=== PATIENT | female | born 1985 | race African-American/Black ===

== ENCOUNTER 2016-11-22 15:11 | Inpatient (IN) | payer MEDICAID ==
[2016-11-22] MEDS ORDERED: Sodium Chloride 0.9% 10 ML Syringe FLUSH PRN (15:40)
--- NOTE | 2016-11-22 15:49 | PCM.LDHP ---
L&D History of Present Illness - General Date of Service: 11/22/16 (preeclampsia) Admit Problem/Dx: Admission Diagnosis/Problem Admission Diagnosis/Problem Source of Information: Patient History Limitations: Reports: No Limitations - History of Present Illness Introduction:: 31 year old 37 5/7 weeks with preclampsia 24 hour urine 442mg Blood pressures 150/90 with labetalol Location, : Reports: Abdomen Quality: Reports: Pressure Severity: Mild Present Illness Comments:: developed hives from the iron infusion, treated with Benadryl. - Related Data Allergies/Adverse Reactions: Allergies Allergy/AdvReac Type Severity Reaction Status Date / Time seasonal Allergy Cannot Uncoded 03/18/16 07:15 Remember Home Medications: Home Meds Cyanocobalamin (Vitamin B-12) [Vitamin B-12] 1,000 mcg SL DAILY #100 tab.subl [Rx] Multivitamin [Kid's Vitamins Complete] 1 each PO BID #100 tab.chew 06/25/15 [Rx] Calcium Citrate/Vitamin D3 [Calcium Citrate + D] 400 - 500 mg PO BID 11/24/15 [ History] LORazepam 0.5 mg PO BID PRN 11/24/15 [History] Omeprazole 40 mg PO BIDMEALS 11/24/15 [History] Pantoprazole [Protonix] 40 mg PO BIDAC 03/17/16 [History] Thiamine [Vitamin B-1] 100 mg PO DAILY 03/17/16 [History] Labetalol HCl [Labetalol] 100 mg PO BID 11/22/16 [History] Past Medical History HEENT History: Reports: Allergic Rhinitis, Impaired Vision Cardiovascular History: Reports: None Respiratory History: Reports: None Gastrointestinal History: Reports: GERD Genitourinary History: Reports: None [employer] History: Reports: Dysfunctional Uterine Bleeding, Spontaneous : 5 Para: 3 LMP (Approximate): (josé miguel 12/14/16 based on early ultrasound) Musculoskeletal History: Reports: Fracture Neurological History: Reports: Concussion, Head Trauma Psychiatric History: Reports: Anxiety, Depression, PTSD Endocrine/Metabolic History: Reports: Diabetes, Gestational Hematologic History: Reports: None Immunologic History: Reports: None Oncologic (Cancer) History: Reports: None Dermatologic History: Reports: None - Infectious Disease History Infectious Disease History: Reports: Chicken Pox - Past Surgical History GI Surgical History: Reports: Bariatric Procedure, Hernia, Abdominal Female Surgical History: Reports: Section, D&C Social & Family History - Family History HEENT: Reports: Hearing Impairment, Impaired Vision, Otitis Media, Sinusitis Cardiac: Reports: Bypass, CAD, [place] Respiratory: Reports: None GI: Reports: None : Reports: None OBGYN: Reports: None Musculoskeletal: Reports: None Neurological: Reports: Alzheimers Disease, Dementia Psychiatric: Reports: Depression Endocrine/Metabolic: Reports: Diabetes, type II Hematologic: Reports: None Immunologic: Reports: None Dermatologic: Reports: None Oncologic: Reports: None - Tobacco Use Smoking Status *Q: Former Smoker Years of Tobacco use: 5 Packs/Tins Daily: 1 Used Tobacco, but Quit: Yes Month Tobacco Last Used: DECEMBER 2014 Second Hand Smoke Exposure: No - Caffeine Use Caffeine Use: Reports: None - Alcohol Use Days Per Week of Alcohol Use: 0 Number of Drinks Per Day: 5 Total Drinks Per Week: 0 - Recreational Drug Use Recreational Drug Use: No H&P Review of Systems - Review of Systems: Review Of Systems: See Below General: Reports: Decreased Appetite HEENT: Reports: No Symptoms Pulmonary: Reports: Shortness of Breath Cardiovascular: Reports: Blood Pressure Problem Gastrointestinal: Reports: Abdominal Pain Genitourinary: Reports: No Symptoms Musculoskeletal: Reports: No Symptoms Skin: Reports: No Symptoms Psychiatric: Reports: No Symptoms Neurological: Reports: Headache, Numbness, Tingling (feet and lower legs) Hematologic/Lymphatic: Reports: No Symptoms Immunologic: Reports: Other (iron, hives as of today) L&D Exam - Exam Exam: See Below - Vital Signs Weight: 167 lb 7 oz - OB Specific Contraction Frequency (min): irregular Contraction Intensity: Mild Movement: Active Heart Tones: Present Heart Tones per Min: 128 Heart Rate (FHR) Variability: Moderate (6-25 bmp) Presentation: Vertex Estimated Weight: 6-7 pounds - Dinero Score Dinero Score Cervix Position: Anterior Dinero Score Consistency: Soft Dinero Score Effacement: 31-50% Dinero Score Dilation: Closed Dinero Score 's Station: -2 Dinero Score Total: 6 - Exam General: Alert, Oriented, Mild Distress HEENT: PERRLA, Mucosa Moist & [place], Pupils Equal Neck: Supple Lungs: Clear to Auscultation, Normal Respiratory Effort Cardiovascular: Regular Rate, Regular Rhythm GI/Abdominal Exam: Soft, Tender Genitourinary: Normal external exam, Enlarged uterus Back Exam: Normal Inspection, Full Range of Motion Extremities: Normal Inspection, Normal Capillary Refill Skin: Warm, Dry, Intact Neurological: Cranial Nerves Intact, Reflexes Equal Bilateral Psychiatric: Alert, Normal Affect, Normal Mood - Patient Data Lab Results Last 24 hrs: HGB 9.6, PLT 225 Normal kidney and liver function. 24 hour ua 442 - Problem List (1) SNOMED Code(s): 89246288 ICD Code: Z34.90 - ENCNTR FOR SUPRVSN OF NORMAL , UNSP, UNSP TRIMESTER Status: Acute Current Visit: Yes Qualifiers: Weeks of gestation: 36 weeks Qualified Code(s): Z3A.36 - 36 weeks gestation of (2) Pre-eclampsia SNOMED Code(s): 850520717 ICD Code: O14.90 - UNSPECIFIED PRE-ECLAMPSIA, UNSPECIFIED TRIMESTER Status : Acute Current Visit: Yes (3) Hypertension affecting SNOMED Code(s): 456712256 ICD Code: O16.9 - UNSPECIFIED MATERNAL HYPERTENSION, UNSPECIFIED TRIMESTER Status: Acute Current Visit: Yes Problem List Initiated/Reviewed/Updated: Yes Orders Last 24hrs: Active Orders 24 hr Category Date Time Status OB Check [OM.PC] Click to Edit Care 11/22/16 14:40 Ordered Assessment/Plan Comment:: 36 5/7 weeks preeclampsia iron infusion reaction, treated GDM well controll Anemia, post gastric by pass, iron infusion today
[2016-11-22] MEDS: diphenhydrAMINE 50 MG/ML SDV IVPUSH ONE ×2 (15:54→16:09)
[2016-11-22] MEDS: Magnesium Sulfate/Water 100 ML ONE ×2 (15:55→16:08)
[2016-11-22] MEDS ORDERED: Lactated Ringers 2,000 ML ONE (15:55)
[2016-11-22] MEDS ORDERED: ePHEDrine 50 MG/ML SDV ONE (15:55)
[2016-11-22] MEDS ORDERED: Oxytocin 10 Units/1 ML SDV ONE (15:55)
[2016-11-22] MEDS ORDERED: Sodium Chloride 0.9% 1,000 ML IV ONE (16:08)
[2016-11-22] MEDS ORDERED: Docusate Sodium 100 MG Cap PO PRN (16:25)
[2016-11-22] MEDS ORDERED: Acetaminophen 325 MG Tab PO PRN (16:25)
[2016-11-22] MEDS ORDERED: Bisacodyl 5 MG Tab PO PRN (16:25)
[2016-11-22] MEDS ORDERED: Phenylephrine 1% 10 MG/ML SDV ONE (16:32)
[2016-11-22] MEDS ORDERED: ceFAZolin 1 GM Vial ONE (16:43)
[2016-11-22] MEDS ORDERED: Ondansetron 4 MG/2 ML SDV ONE (16:48)
[2016-11-22] MEDS ORDERED: Dexamethasone 4 MG/ML SDV ONE (17:02)
[2016-11-22] MEDS ORDERED: Morphine 4 MG/ML Syringe ONE (17:48)
[2016-11-22] MEDS ORDERED: Magnesium Sulfate/Water 100 ML ONE (18:39)
[2016-11-22] MEDS: Morphine 2 MG/ML Syringe IVPUSH PRN ×3 (18:46→23:39)
[2016-11-22] MEDS: Acetaminophen/HYDROcodone 325-10 MG Tab PO PRN ×2 (18:49→22:55)
[2016-11-22] MEDS ORDERED: Magnesium Sulfate/Water 4 GM in Premix Bag 2 BAG IV ONE (19:00)
[2016-11-22] MEDS ORDERED: Magnesium Sulfate/Water 40 GM/1,000 ML BAG IV SCH (19:15)
--- NOTE | 2016-11-22 23:40 | CONS ---
DATE OF SERVICE: 11/22/2016 REFERRING PHYSICIAN: CONSULTING PHYSICIAN: Lawrence Porter MD REASON FOR CONSULTATION: Evaluation of . HISTORY OF PRESENT ILLNESS: A pleasant 31-year-old female, who has had an uncomplicated at about 36 months. Unfortunately, the patient has developed a HELLP syndrome/preeclampsia. The concern here is worsening state. PAST SURGICAL HISTORY: Duodenal switch. PAST MEDICAL HISTORY: 1. Morbid obesity. 2. Gastroesophageal reflux disease. 3. History of head trauma. 4. PTSD. 5. Anxiety. 6. Depression. 7. Gestational diabetes. FAMILY HISTORY: Noncontributory. SOCIAL HISTORY: She is a former smoker. REVIEW OF SYSTEMS: GENERAL: No significant concerns. HEENT: No symptoms. PULMONARY: Mild shortness of breath that is appropriate for . CARDIOVASCULAR: Hypertension as described above. GASTROINTESTINAL: No changes. GENITOURINARY: No changes. MUSCULOSKELETAL: No symptoms. SKIN: No changes except for some itching of the abdomen. NEUROLOGICAL: No significant changes. PHYSICAL EXAMINATION: VITAL SIGNS: Stable. Blood pressure unavailable at this time. HEENT: Pupils are equal. NECK: Supple. LUNGS: Clear. CARDIOVASCULAR: Regular rate. ABDOMEN: Bowel sounds positive. Appropriate for state. EXTREMITIES: Full range of motion. NEUROLOGICAL: Oriented x3. PSYCH: No gross depression. LABORATORY DATA: Results show white blood count cell count of 9.6 with platelets of 255,000. IMAGING DATA: Ultrasound, which I did review on 11/16/2016 shows a 35-week and 4-day . ASSESSMENT AND PLAN: The patient will be taken emergently to the operating room for section. We discussed risks, benefits, alternatives, limitations including, but not limited to infection, bleeding, injury to bowel, bladder, baby, intestine, wound failure, chronic pain, infertility, and other risks not listed here. The patient understands these risks and wishes to proceed. Lawrence Porter MD /[id number]
[2016-11-23] MEDS: Acetaminophen/HYDROcodone 325-10 MG Tab PO PRN (02:47)
[2016-11-23] MEDS: Ibuprofen 600 MG Tab PO PRN ×4 (03:49→22:29)
[2016-11-23] MEDS: Morphine 2 MG/ML Syringe IVPUSH PRN ×2 (03:49→07:58)
[2016-11-23] MEDS: Acetaminophen/oxyCODONE 325-10 MG Tab PO PRN ×4 (08:29→20:24)
[2016-11-23] MEDS ORDERED: Lanolin 100% Cream 40 GM Tube TOP PRN (08:37)
--- NOTE | 2016-11-23 09:41 | OR ---
DATE OF PROCEDURE: 11/22/2016 PROCEDURE: section with aftercare. PREOPERATIVE DIAGNOSIS: Preeclampsia requiring emergent . POSTOPERATIVE DIAGNOSIS: Preeclampsia requiring emergent . PET ADOPTION COUNSELOR: Jennifer Dunham CNM RISKS: Risks, benefits, alternatives, and limitations, including, but not limited to infection, bleeding, and injury to baby, bladder, intestines, and other risks were explained to the patient and wished to proceed. PROCEDURE IN DETAIL: The patient was placed in supine position. The abdomen was prepped and draped. The patient had a previous midline vertical incision, which was used for the today. This was carried down with a 15 blade and then subsequently followed by an electrocautery. A Cheryl clamp was used to elevate the abdominal wall, thus dissecting the small bowel and uterus away from this. The abdomen was then entered and showed no abnormalities. This was enlarged superiorly and inferiorly using electrocautery. The bladder was then deflected from the uterus itself. The uterus was then opened bluntly using a mosquito. A bandage scissors was then used to open the uterus further. The baby was delivered without difficulty. At no point was the baby's arms, legs, or shoulders pulled on, rather antegrade pressure was used to deliver the baby. The cord was then clamped and subsequently cut. The uterus was delivered from the abdomen and the placenta was delivered without abnormality. The uterus was then closed 0-with Vicryl sutures in a running locked fashion x2. The bladder was reapproximated. The fascia was then reapproximated using 0-Vicryl sutures x2. All layers were thoroughly irrigated. The subcutaneous tissues were reapproximated. Skin was closed with 4-0 Vicryl. Dermabond was applied. The patient tolerated the procedure well. Lawrence Porter MD /[id number]
--- NOTE | 2016-11-23 12:02 | PN ---
DATE OF SERVICE: 11/23/2016 SUBJECTIVE: The patient is doing well except still having some pain control issues today. OBJECTIVE: VITAL SIGNS: Stable. CARDIOVASCULAR: Regular rhythm and rate. RESPIRATORY: Lungs clear to consultation bilaterally. ABDOMEN: Bowel sounds positive. PLAN: We will change her pain medication to Percocet. Her hemoglobin is stable. Her magnesium is elevated which is considering her current administration of magnesium due to preeclampsia issues. Jennifer Dunham will continue to manage the preeclampsia and surgical services will continue to assist her in any way possible. As far as the surgical aspect, the patient is doing well. She is okay to shower. We will remove her Rader catheter today. We will work on more diet and activity. Lawrence Porter MD /[id number]
[2016-11-23] MEDS: Labetalol 100 MG Tab PO SCH ×2 (13:27→20:47)
[2016-11-24] MEDS: Acetaminophen/oxyCODONE 325-10 MG Tab PO PRN ×6 (00:21→21:29)
[2016-11-24] MEDS: Ibuprofen 600 MG Tab PO PRN (07:30)
[2016-11-24] MEDS: Labetalol 100 MG Tab PO SCH ×2 (08:46→20:41)
[2016-11-24] MEDS ORDERED: Bisacodyl 10 MG Supp RECTAL PRN (10:53)
[2016-11-24] MEDS ORDERED: Magnesium Hydroxide 400 MG/5 ML Susp 30 ML Cup PO PRN (10:53)
--- NOTE | 2016-11-24 14:49 | PN ---
DATE OF SERVICE: 11/24/2016 SUBJECTIVE: The patient is doing well today. She has not had a bowel movement yet, but is passing gas. OBJECTIVE: VITAL SIGNS: Stable. CARDIOVASCULAR: Regular rhythm and rate. RESPIRATORY: Lungs clear to consultation bilaterally. ABDOMEN: Bowel sounds positive. Incision is healing well. ASSESSMENT: Status post . PLAN: We will work on showering today, activity, and work on bowel stimulation. Anticipate discharge tomorrow. Lawrence Porter MD /[id number]
[2016-11-24] MEDS ORDERED: Calcium Carbonate 500 MG Tab.Chew PO PRN (17:20)
[2016-11-25] MEDS: Acetaminophen/oxyCODONE 325-10 MG Tab PO PRN ×6 (01:42→22:25)
[2016-11-25] MEDS: Labetalol 100 MG Tab PO SCH ×3 (09:28→21:21)
[2016-11-25] MEDS: Ibuprofen 600 MG Tab PO PRN (09:30)
--- NOTE | 2016-11-25 10:36 | PN ---
DATE OF SERVICE: 11/25/2016 SUBJECTIVE: The patient is doing very well today. Pain is controlled with Percocet. No nausea, vomiting or shortness of breath. OBJECTIVE: VITAL SIGNS: Stable. CARDIOVASCULAR: Regular rhythm and rate. RESPIRATORY: Lungs clear to consultation bilaterally. SKIN: Incision healing well. No signs of cellulitis or infection. Dermabond is intact. ASSESSMENT: Status post section. PLAN: The patient will be discharged today. We discussed diet, activity, followup, signs and symptoms, complications, and the role of the emergency room. Please see discharge MAR for further details. Lawrence Porter MD /[id number]
--- NOTE | 2016-11-25 10:39 | DISCH ---
DISCHARGE DIAGNOSIS: Status post section. HOSPITAL COURSE: This is a pleasant 31-year-old female who underwent an uneventful section. The patient did well postoperatively. Her pain continued to improve. The patient at discharge today had no fevers, chills, nausea, or vomiting. Complications during this hospitalization were none. DISCHARGE MEDICATIONS: Please see MAR, but include Percocet for pain. FOLLOWUP: With Surgery in 7 to 14 days.
--- NOTE | 2016-11-25 17:43 | PCM.PNPP ---
- General Info Date of Service: 11/25/16 Functional Status: Reports: Pain Controlled - Review of Systems General: Reports: No Symptoms HEENT: Reports: Headaches Pulmonary: Reports: No Symptoms Cardiovascular: Reports: No Symptoms Gastrointestinal: Reports: No Symptoms Genitourinary: Reports: No Symptoms Musculoskeletal: Reports: No Symptoms Skin: Reports: No Symptoms Neurological: Reports: No Symptoms Psychiatric: Reports: No Symptoms - General Info Date of Service: 11/25/16 - Patient Data Vital Signs - most recent: Last Vital Signs Temp 36.7 C 11/25/16 15:11 Pulse 72 11/25/16 15:11 Resp 16 11/25/16 15:11 BP 150/90 H 11/25/16 15:55 Pulse Ox 97 11/25/16 15:11 Weight - most recent: 78.471 kg I&O - last 24 hours: Intake & Output 11/25/16 11/25/16 11/25/16 06:59 14:59 22:59 Intake Total 909 166 6095 Balance 437 842 2957 Lab Results - last 24 hrs: Laboratory Results - last 24 hr 11/25/16 11/25/16 Range/Units 15:12 15:12 WBC 9.8 (4.5-11.0) K/uL RBC 3.51 (3.30-5.50) M/uL Hgb 8.7 L D (12.0-15.0) g/dL Hct 28.5 L (36.0-48.0) % MCV 81 (80-98) fL MCH 25 L (27-31) pg MCHC 31 L (32-36) % Plt Count 244 (150-400) K/uL Sodium 139 L (140-148) mmol/L Potassium 4.2 (3.6-5.2) mmol/L Chloride 105 (100-108) mmol/L Carbon Dioxide 28 (21-32) mmol/L Anion Gap 10.2 (5.0-14.0) mmol/L BUN 15 D (7-18) mg/dL Creatinine 0.8 (0.6-1.0) mg/dL Est Cr Clr Drug Dosing 101.30 mL/min Estimated GFR (MDRD) > 60 (>60) Glucose 77 (74-106) mg/dL Calcium 8.2 L (8.5-10.1) mg/dL Total Bilirubin 0.3 (0.2-1.0) mg/dL AST 26 (15-37) U/L ALT 29 (12-78) U/L Alkaline Phosphatase 142 H (46-116) U/L Total Protein 6.6 (6.4-8.2) g/dL Albumin 2.2 L (3.4-5.0) g/dL Globulin 4.4 H (2.3-3.5) g/dL Albumin/Globulin Ratio 0.5 L (1.2-2.2) Med Orders - Current: Current Medications Acetaminophen (Tylenol) 650 mg PO Q6H PRN PRN Reason: Pain (mild 1-3) Bisacodyl (Dulcolax) 5 mg PO DAILY PRN PRN Reason: Constipation Last Admin: 11/24/16 04:21 Dose: 5 mg Bisacodyl (Dulcolax) 10 mg RECTAL DAILY PRN PRN Reason: Constipation Last Admin: 11/24/16 12:56 Dose: 10 mg Calcium Carbonate/Glycine (Tums) 1,000 mg PO Q2H PRN PRN Reason: Indigestion Last Admin: 11/24/16 17:26 Dose: 1,000 mg Docusate Sodium (Colace) 100 mg PO BID PRN PRN Reason: Constipation Last Admin: 11/23/16 18:13 Dose: 100 mg Emollient Ointment (Lansinoh Hpa) 0 gm TOP ASDIRECTED PRN PRN Reason: sore nipples Last Admin: 11/23/16 08:47 Dose: 1 applic Magnesium Sulfate (Magnesium Sulfate 40 Gm In Water 1000 Ml) 40 gm in 1,000 mls @ 25 mls/hr IV ASDIRECTED SUMMER PRN Reason: Protocol Last Admin: 11/22/16 19:26 Dose: 25 ml/hr, 25 mls/hr Labetalol HCl (Normodyne) 100 mg PO TID SUMMER Last Admin: 11/25/16 15:09 Dose: 100 mg Magnesium Hydroxide (Milk Of Magnesia) 30 ml PO BID PRN PRN Reason: Constipation Last Admin: 11/24/16 11:13 Dose: 30 ml Morphine Sulfate (Morphine) 1 - 4 mg IVPUSH Q1H PRN PRN Reason: Pain Last Admin: 11/23/16 07:58 Dose: 4 mg Oxycodone/Acetaminophen (Percocet 325-10 Mg) 1 - 2 tab PO Q4H PRN PRN Reason: Pain Last Admin: 11/25/16 13:53 Dose: 2 tab Senna/Docusate Sodium (Senna Plus) 1 tab PO BID PRN PRN Reason: Constipation Last Admin: 11/24/16 08:47 Dose: 1 tab Sodium Chloride (Saline Flush) 10 ml FLUSH ASDIRECTED PRN PRN Reason: Keep Vein Open Discontinued Medications Hydrocodone Bitart/Acetaminophen ([place] 325-10 Mg) 1 - 2 tab PO Q4H PRN PRN Reason: Pain Last Admin: 11/23/16 02:47 Dose: 2 tab Cefazolin Sodium (Ancef) Confirm Administered Dose 2 gm .ROUTE .STK-MED ONE Stop: 11/22/16 16:44 Dexamethasone (Dexamethasone) Confirm Administered Dose 4 mg .ROUTE .STK-MED ONE Stop: 11/22/16 17:03 Diphenhydramine HCl (Benadryl) 25 mg IVPUSH ONETIME ONE Stop: 11/22/16 16:01 Last Admin: 11/22/16 16:09 Dose: Not Given Ephedrine Sulfate (Ephedrine Sulfate) Confirm Administered Dose 50 mg .ROUTE .STK-MED ONE Stop: 11/22/16 15:56 Magnesium Sulfate (Magnesium Sulfate 2 Gm In Water 50 Ml) Confirm Administered Dose 100 mls @ as directed .ROUTE .STK-MED ONE Stop: 11/22/16 15:49 Last Admin: 11/22/16 16:08 Dose: 2 gm Lactated Ringer's (Ringers, Lactated) Confirm Administered Dose 2,000 mls @ as directed .ROUTE .STK-MED ONE Stop: 11/22/16 15:56 Sodium Chloride (Normal Saline) 1,000 mls @ 999 mls/hr IV .BOLUS ONE Stop: 11/22/16 17:08 Last Admin: 11/22/16 15:50 Dose: 999 mls/hr Magnesium Sulfate (Magnesium Sulfate 2 Gm In Water 50 Ml) Confirm Administered Dose 100 mls @ as directed .ROUTE .STK-MED ONE Stop: 11/22/16 18:40 Last Admin: 11/22/16 18:50 Dose: 4 gm Magnesium Sulfate 4 gm/ Premix 100 mls @ 400 mls/hr IV ONETIME ONE Stop: 11/22/16 19:14 Last Admin: 11/22/16 19:41 Dose: Not Given Ibuprofen (Motrin) 600 mg PO Q6H PRN PRN Reason: Pain Last Admin: 11/25/16 09:30 Dose: 600 mg Labetalol HCl (Normodyne) 100 mg PO BID SUMMER Last Admin: 11/25/16 09:28 Dose: 100 mg Morphine Sulfate (Morphine) Confirm Administered Dose 4 mg .ROUTE .STK-MED ONE Stop: 11/22/16 17:49 Last Admin: 11/22/16 18:02 Dose: 4 mg Ondansetron HCl (Zofran) Confirm Administered Dose 4 mg .ROUTE .STK-MED ONE Stop: 11/22/16 16:49 Oxytocin (Pitocin) Confirm Administered Dose 10 unit .ROUTE .STK-MED ONE Stop: 11/22/16 15:56 Last Admin: 11/22/16 17:05 Dose: 10 unit Phenylephrine HCl (Carlo-Synephrine) Confirm Administered Dose 10 mg .ROUTE .STK- MED ONE Stop: 11/22/16 16:33 - Interaction Infant Disposition, : at Bedside Infant Interaction: Holding Infant Support Person: - Recovery Exam Fundal Tone: Firm Fundal Level: 1 Fingerbreadths Above Umbilicus Fundal Placement: Midline Lochia Amount: Small Lochia Color: Rubra/Red Perineum Description: Intact, Minimal Bruising/Swelling Episiotomy/Laceration: None Bladder Status: Voiding Urinary Elimination: Voided - Exam General: alert, oriented HEENT: Pupils equal Neck: supple Lungs: Clear to Auscultation, Normal Respiratory Effort Cardiovascular: Regular Rate, Regular Rhythm GI/Abdominal Exam: Normal Bowel Sounds, Soft, Non-Tender, No Organomegaly, No Distention, No Abnormal Bruit, No Mass, Pelvis Stable Extremities: Normal Inspection, Normal Range of Motion, Non-Tender, No Pedal Edema, Normal Capillary Refill Skin: warm, dry, intact Neurological: no new focal deficit Psy/Mental Status: alert, normal affect, normal mood - Problem List & Annotations (1) Pre-eclampsia SNOMED Code(s): 768077672 Code(s): O14.90 - UNSPECIFIED PRE-ECLAMPSIA, UNSPECIFIED TRIMESTER Status: Acute Current Visit: Yes - Problem List Review Problem List Initiated/Reviewed/Updated: Yes - My Orders Last 24 Hours: My Active Orders 11/24/16 17:20 Calcium Carbonate [Tums] 1,000 mg PO Q2H PRN 11/25/16 15:00 Labetalol [Normodyne] 100 mg PO TID - Assessment Assessment:: 11/25/2016 preeclampsia Post Repeat - Plan Plan:: 36 5/7 weeks preeclampsia iron infusion reaction, treated GDM well controll Anemia, post gastric by pass, iron infusion today 11/25/2016 Will initiate labetalol 1oomg TID today then to 200mg BID tomorrow Continue to monitor BP and VS regular IF >160 diastolic or >90 systolic after rechecks and interventions call me Plan discharge tomorrow
[2016-11-25] MEDS ORDERED: Cyclobenzaprine 10 MG Tab PO PRN (20:40)
[2016-11-25] MEDS ORDERED: hydrOXYzine HCl 100 MG/2 ML SDV IM PRN (20:40)
[2016-11-26] MEDS: Acetaminophen/oxyCODONE 325-10 MG Tab PO PRN ×3 (03:30→11:59)
--- NOTE | 2016-11-26 08:28 | PCM.PNPP ---
- General Info Date of Service: 11/26/16 Admission Dx/Problem (Free Text): Admission Diagnosis/Problem Admission Diagnosis/Problem Functional Status: Reports: Pain Controlled - Review of Systems General: Reports: No Symptoms HEENT: Reports: No Symptoms Pulmonary: Reports: No Symptoms Cardiovascular: Reports: No Symptoms Gastrointestinal: Reports: No Symptoms Genitourinary: Reports: No Symptoms Musculoskeletal: Reports: No Symptoms Skin: Reports: No Symptoms Neurological: Reports: No Symptoms Psychiatric: Reports: No Symptoms - General Info Date of Service: 11/26/16 - Patient Data Vital Signs - most recent: Last Vital Signs Temp 37.3 C 11/26/16 07:47 Pulse 85 11/26/16 07:47 Resp 16 11/26/16 07:47 BP 148/90 H 11/26/16 07:51 Pulse Ox 98 11/26/16 07:47 Weight - most recent: 78.471 kg I&O - last 24 hours: Intake & Output 11/25/16 11/26/16 11/26/16 22:59 06:59 14:59 Intake Total 1999 1999 Balance 1999 1999 Lab Results - last 24 hrs: Laboratory Results - last 24 hr 11/25/16 11/25/16 Range/Units 15:12 15:12 WBC 9.8 (4.5-11.0) K/uL RBC 3.51 (3.30-5.50) M/uL Hgb 8.7 L D (12.0-15.0) g/dL Hct 28.5 L (36.0-48.0) % MCV 81 (80-98) fL MCH 25 L (27-31) pg MCHC 31 L (32-36) % Plt Count 244 (150-400) K/uL Sodium 139 L (140-148) mmol/L Potassium 4.2 (3.6-5.2) mmol/L Chloride 105 (100-108) mmol/L Carbon Dioxide 28 (21-32) mmol/L Anion Gap 10.2 (5.0-14.0) mmol/L BUN 15 D (7-18) mg/dL Creatinine 0.8 (0.6-1.0) mg/dL Est Cr Clr Drug Dosing 101.30 mL/min Estimated GFR (MDRD) > 60 (>60) Glucose 77 (74-106) mg/dL Calcium 8.2 L (8.5-10.1) mg/dL Total Bilirubin 0.3 (0.2-1.0) mg/dL AST 26 (15-37) U/L ALT 29 (12-78) U/L Alkaline Phosphatase 142 H (46-116) U/L Total Protein 6.6 (6.4-8.2) g/dL Albumin 2.2 L (3.4-5.0) g/dL Globulin 4.4 H (2.3-3.5) g/dL Albumin/Globulin Ratio 0.5 L (1.2-2.2) Micro Results - last 24 hours: Microbiology 11/25/16 21:24 Clostridium difficile (PCR) - Final Stool / Feces NEGATIVE CDIFF TOXIN Med Orders - Current: Current Medications Acetaminophen (Tylenol) 650 mg PO Q6H PRN PRN Reason: Pain (mild 1-3) Bisacodyl (Dulcolax) 5 mg PO DAILY PRN PRN Reason: Constipation Last Admin: 11/24/16 04:21 Dose: 5 mg Bisacodyl (Dulcolax) 10 mg RECTAL DAILY PRN PRN Reason: Constipation Last Admin: 11/24/16 12:56 Dose: 10 mg Calcium Carbonate/Glycine (Tums) 1,000 mg PO Q2H PRN PRN Reason: Indigestion Last Admin: 11/24/16 17:26 Dose: 1,000 mg Cyclobenzaprine HCl (Flexeril) 10 mg PO TID PRN PRN Reason: Pain Last Admin: 11/25/16 21:00 Dose: 10 mg Docusate Sodium (Colace) 100 mg PO BID PRN PRN Reason: Constipation Last Admin: 11/23/16 18:13 Dose: 100 mg Emollient Ointment (Lansinoh Hpa) 0 gm TOP ASDIRECTED PRN PRN Reason: sore nipples Last Admin: 11/23/16 08:47 Dose: 1 applic Hydroxyzine HCl (Vistaril) 50 - 100 mg IM Q4H PRN PRN Reason: Nausea Magnesium Sulfate (Magnesium Sulfate 40 Gm In Water 1000 Ml) 40 gm in 1,000 mls @ 25 mls/hr IV ASDIRECTED SUMMER PRN Reason: Protocol Last Admin: 11/22/16 19:26 Dose: 25 ml/hr, 25 mls/hr Labetalol HCl (Normodyne) 200 mg PO BID SUMMER Magnesium Hydroxide (Milk Of Magnesia) 30 ml PO BID PRN PRN Reason: Constipation Last Admin: 11/24/16 11:13 Dose: 30 ml Morphine Sulfate (Morphine) 1 - 4 mg IVPUSH Q1H PRN PRN Reason: Pain Last Admin: 11/23/16 07:58 Dose: 4 mg Oxycodone/Acetaminophen (Percocet 325-10 Mg) 1 - 2 tab PO Q4H PRN PRN Reason: Pain Last Admin: 11/26/16 07:45 Dose: 2 tab Senna/Docusate Sodium (Senna Plus) 1 tab PO BID PRN PRN Reason: Constipation Last Admin: 11/24/16 08:47 Dose: 1 tab Sodium Chloride (Saline Flush) 10 ml FLUSH ASDIRECTED PRN PRN Reason: Keep Vein Open Discontinued Medications Hydrocodone Bitart/Acetaminophen ([place] 325-10 Mg) 1 - 2 tab PO Q4H PRN PRN Reason: Pain Last Admin: 11/23/16 02:47 Dose: 2 tab Cefazolin Sodium (Ancef) Confirm Administered Dose 2 gm .ROUTE .STK-MED ONE Stop: 11/22/16 16:44 Dexamethasone (Dexamethasone) Confirm Administered Dose 4 mg .ROUTE .STK-MED ONE Stop: 11/22/16 17:03 Diphenhydramine HCl (Benadryl) 25 mg IVPUSH ONETIME ONE Stop: 11/22/16 16:01 Last Admin: 11/22/16 16:09 Dose: Not Given Ephedrine Sulfate (Ephedrine Sulfate) Confirm Administered Dose 50 mg .ROUTE .STK-MED ONE Stop: 11/22/16 15:56 Magnesium Sulfate (Magnesium Sulfate 2 Gm In Water 50 Ml) Confirm Administered Dose 100 mls @ as directed .ROUTE .STK-MED ONE Stop: 11/22/16 15:49 Last Admin: 11/22/16 16:08 Dose: 2 gm Lactated Ringer's (Ringers, Lactated) Confirm Administered Dose 2,000 mls @ as directed .ROUTE .STK-MED ONE Stop: 11/22/16 15:56 Sodium Chloride (Normal Saline) 1,000 mls @ 999 mls/hr IV .BOLUS ONE Stop: 11/22/16 17:08 Last Admin: 11/22/16 15:50 Dose: 999 mls/hr Magnesium Sulfate (Magnesium Sulfate 2 Gm In Water 50 Ml) Confirm Administered Dose 100 mls @ as directed .ROUTE .STK-MED ONE Stop: 11/22/16 18:40 Last Admin: 11/22/16 18:50 Dose: 4 gm Magnesium Sulfate 4 gm/ Premix 100 mls @ 400 mls/hr IV ONETIME ONE Stop: 11/22/16 19:14 Last Admin: 11/22/16 19:41 Dose: Not Given Ibuprofen (Motrin) 600 mg PO Q6H PRN PRN Reason: Pain Last Admin: 11/25/16 09:30 Dose: 600 mg Labetalol HCl (Normodyne) 100 mg PO BID SUMMER Last Admin: 11/25/16 09:28 Dose: 100 mg Labetalol HCl (Normodyne) 100 mg PO TID SUMMER Last Admin: 11/25/16 21:21 Dose: 100 mg Morphine Sulfate (Morphine) Confirm Administered Dose 4 mg .ROUTE .STK-MED ONE Stop: 11/22/16 17:49 Last Admin: 11/22/16 18:02 Dose: 4 mg Ondansetron HCl (Zofran) Confirm Administered Dose 4 mg .ROUTE .STK-MED ONE Stop: 11/22/16 16:49 Oxytocin (Pitocin) Confirm Administered Dose 10 unit .ROUTE .STK-MED ONE Stop: 11/22/16 15:56 Last Admin: 11/22/16 17:05 Dose: 10 unit Phenylephrine HCl (Carlo-Synephrine) Confirm Administered Dose 10 mg .ROUTE .STK- MED ONE Stop: 11/22/16 16:33 - Interaction Infant Disposition, : at Bedside Interaction: Holding Support Person: - Recovery Exam Fundal Tone: Firm Fundal Level: At Umbilicus Fundal Placement: Midline Lochia Amount: Small Lochia Color: Rubra/Red Perineum Description: Intact, Minimal Bruising/Swelling Episiotomy/Laceration: None Bladder Status: Voiding Urinary Elimination: Voided - Problem List & Annotations (1) Pre-eclampsia SNOMED Code(s): 191071569 Code(s): O14.90 - UNSPECIFIED PRE-ECLAMPSIA, UNSPECIFIED TRIMESTER Status: Acute Current Visit: Yes - Problem List Review Problem List Initiated/Reviewed/Updated: Yes - My Orders Last 24 Hours: My Active Orders 11/26/16 09:00 Labetalol [Normodyne] 200 mg PO BID - Assessment Assessment:: 11/25/2016 preeclampsia Post Repeat 11/26/2016 BPs better on the new labetalol dosage Will increase to Labetalol 200mg BID today Will have her see Jennifer Monday for a BP check and then weekly for awhile Went over warning signs and when to come to ER Went over to not have baby sleeping in bed with her if taking pain medication and muscle relaxer since she gets so drowsy - Plan Plan:: 36 5/7 weeks preeclampsia iron infusion reaction, treated GDM well controll Anemia, post gastric by pass, iron infusion today 11/25/2016 Will initiate labetalol 1oomg TID today then to 200mg BID tomorrow Continue to monitor BP and VS regular IF >160 diastolic or >90 systolic after rechecks and interventions call me Plan discharge tomorrow 11/26/2016 Discharge today on new labetalol dosing See Jennifer Monday for BP visit
[2016-11-26] MEDS ORDERED: Labetalol 100 MG Tab PO SCH (09:00)
[2016-11-26 11:12] VITALS: BP 140/78
== END 2016-11-26 12:30 | disposition home or self-care (01) | DRG 765 ==
LOC: JP.OBCHECK 15:11 → JP.OB 15:16 → OBSVTOIN 16:44 → JP.MS 18:13
PROVIDERS: ADMIT Nurse Practitioner Family; ATTEND Surgery
PROC: 10D00Z1 Extraction of Products of Conception, Low, Open Approach (ICD-10-PCS; principal; 2016-11-22)
DX: O14.23 HELLP syndrome (HELLP), third trimester (principal); K91.2 Postsurgical malabsorption, not elsewhere classified; Z3A.37 37 weeks gestation of pregnancy; Z37.0 Single live birth; O99.343 Other mental disorders complicating pregnancy, third trimester; F32.9 Major depressive disorder, single episode, unspecified; F43.10 Post-traumatic stress disorder, unspecified; H54.7 Unspecified visual loss; Z87.891 Personal history of nicotine dependence; Z98.84 Bariatric surgery status; D64.9 Anemia, unspecified; O34.211 Maternal care for low transverse scar from previous cesarean delivery; N85.8 Other specified noninflammatory disorders of uterus; T80.89XA Other complications following infusion, transfusion and therapeutic injection, initial encounter; O24.419 Gestational diabetes mellitus in pregnancy, unspecified control; F41.9 Anxiety disorder, unspecified; O13.9 Gestational [pregnancy-induced] hypertension without significant proteinuria, unspecified trimester; O99.019 Anemia complicating pregnancy, unspecified trimester; D50.8 Other iron deficiency anemias; O99.89 Other specified diseases and conditions complicating pregnancy, childbirth and the puerperium
CPT/HCPCS: 36415; 80048; 80053; 81001; 81003; 82565; 83615; 83735; 84450; 84460; 84520; 84550; 85025; 85027; 85730; 86850; 86900; 86901; 87493; 88307; 96365; 96366; 99211; A9270-GY; J0690; J1100; J1200; J1756; J2270; J2370; J2405; J2590; J3475; J7040; J7050; J7120

== ENCOUNTER 2016-12-31 03:40 | Emergency (ER) | payer MEDICAID ==
[2016-12-31 04:09] VITALS: BP 145/86
[2016-12-31] MEDS ORDERED: Acetaminophen/oxyCODONE 325-7.5 MG Tab PO PRN (04:41)
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
--- NOTE | 2017-01-02 09:20 | CR ---
Pelvis 1V or 2V INDICATION: blunt trauma FINDINGS: No acute fracture. Pelvis otherwise negative.
--- NOTE | 2017-01-02 10:15 | CR ---
Lumbar Spine 2 or 3V INDICATION: blunt trauma FINDINGS: 5 lumbar type vertebral bodies. Vertebral body and disc space height is relatively well-travis ntained. Lumbar facet joints within normal limits. No evidence for acute fracture.
== END 2016-12-31 05:49 | disposition home or self-care (01) ==
LOC: JP.ED 03:40
DX: S30.0XXA Contusion of lower back and pelvis, initial encounter (principal); F17.210 Nicotine dependence, cigarettes, uncomplicated; I10 Essential (primary) hypertension; K21.9 Gastro-esophageal reflux disease without esophagitis; Z79.899 Other long term (current) drug therapy; Z98.890 Other specified postprocedural states; Z91.09 Other allergy status, other than to drugs and biological substances; W22.09XA Striking against other stationary object, initial encounter
CPT/HCPCS: 72100; 72170; 81001; 99284; A9270

== ENCOUNTER 2017-02-24 06:55 | Inpatient (IN) | payer MEDICAID ==
[2017-02-24] MEDS ORDERED: Scopolamine 1.5 MG Transdermal Patch TRDERM SCH (07:15)
[2017-02-24] MEDS ORDERED: Scopolamine 1.5 MG Transdermal Patch TRDERM PRN (07:15)
[2017-02-24] MEDS ORDERED: Meropenem 500 MG SDV ONE (07:19)
[2017-02-24] MEDS ORDERED: Dextrose 5%-Lactated Ringers 1,000 ML IV SCH (07:30)
[2017-02-24] MEDS ORDERED: Naloxone 0.4 MG/ML SDV IVPUSH PRN (07:31)
[2017-02-24] MEDS: HYDROmorphone/Normal Saline 15 MG/30 ML PCA IV PRN (07:37)
[2017-02-24] MEDS: Acetaminophen 500 MG Tab PO ONE ×2 (07:38→07:41)
[2017-02-24] MEDS ORDERED: Ondansetron 4 MG/2 ML SDV ONE (07:54)
[2017-02-24] MEDS ORDERED: Propofol 200 MG/20 ML SDV ONE (07:54)
[2017-02-24] MEDS ORDERED: Glycopyrrolate 0.2 MG/ML 5 ML MDV ONE (07:54)
[2017-02-24] MEDS ORDERED: Dexamethasone 4 MG/ML SDV ONE (07:54)
[2017-02-24] MEDS ORDERED: Rocuronium 50 MG/5 ML Vial ONE (07:54)
[2017-02-24] MEDS ORDERED: Neostigmine Methylsulfate 1 MG/ML 5 ML Syringe ONE (07:54)
[2017-02-24] MEDS ORDERED: cefOXitin 2 GM in Sodium Chloride 0.9% 50 ML IV ONE (08:30)
[2017-02-24] MEDS ORDERED: Ketamine 500 MG/5 ML MDV IV SCH (08:45)
[2017-02-24] MEDS ORDERED: Lidocaine 2% 100 MG/5 ML Syringe IVPUSH ONE (08:45)
[2017-02-24] MEDS ORDERED: Ondansetron 4 MG/2 ML SDV IVPUSH PRN (11:26)
[2017-02-24] MEDS ORDERED: Cyclobenzaprine 10 MG Tab PO PRN (11:29)
[2017-02-24] MEDS ORDERED: LORazepam 0.5 MG Tab PO PRN (11:30)
[2017-02-24] MEDS: Lidocaine 0.4%/D5W 2 GM/500 ML BAG IV SCH (11:49)
[2017-02-24] MEDS: SCOPOLAMINE PATCH CHECK TOP SCH (11:51)
[2017-02-24] MEDS: Dextrose 5%-Lactated Ringers 1,000 ML with MVI, Adult with Vitamin K 10 ML, Chromium/Co... IV SCH ×6 (11:51→17:48)
[2017-02-24] MEDS: Pantoprazole 40 MG Vial IV SCH (11:52)
[2017-02-24] MEDS ORDERED: PARoxetine 20 MG Tab PO SCH ×2 (12:00)
[2017-02-24] MEDS: Acetaminophen 325 MG Tab PO SCH ×2 (14:47→19:27)
[2017-02-24] MEDS: ceFAZolin 2 GM in Sodium Chloride 0.9% 50 ML IV SCH ×2 (14:47→22:38)
[2017-02-24] MEDS ORDERED: busPIRone 5 MG Tab PO SCH (21:00)
[2017-02-24] MEDS ORDERED: Labetalol 100 MG Tab PO SCH (21:00)
[2017-02-24] MEDS: PARoxetine 20 MG Tab PO SCH (22:36)
[2017-02-25] MEDS: Dextrose 5%-Lactated Ringers 1,000 ML IV SCH ×2 (00:09→05:33)
[2017-02-25] MEDS: HYDROmorphone/Normal Saline 15 MG/30 ML PCA IV PRN (00:34)
[2017-02-25] MEDS: Lidocaine 0.4%/D5W 2 GM/500 ML BAG IV SCH (01:16)
[2017-02-25] MEDS: Acetaminophen 325 MG Tab PO SCH ×3 (01:22→14:59)
[2017-02-25] MEDS: ceFAZolin 2 GM in Sodium Chloride 0.9% 50 ML IV SCH (05:30)
[2017-02-25] MEDS ORDERED: Dextrose 5%-Lactated Ringers 1,000 ML IV SCH (08:15)
[2017-02-25] MEDS: Hydrochlorothiazide 12.5 MG Cap PO SCH (08:22)
[2017-02-25] MEDS: Lisinopril 10 MG Tab PO SCH (08:22)
[2017-02-25] MEDS: Acetaminophen/oxyCODONE 325-5 MG Tab PO PRN ×4 (09:23→22:09)
[2017-02-25] MEDS: methylPREDNISolone Sodium Succinate 125 MG/2 ML SDV IVPUSH SCH (09:23)
[2017-02-25] MEDS: Nicotine 21 MG/24 Hr Patch TRDERM SCH (09:23)
[2017-02-25] MEDS: Bisacodyl 5 MG Tab PO SCH ×2 (09:24→22:09)
[2017-02-25] MEDS: SCOPOLAMINE PATCH CHECK TOP SCH (09:25)
[2017-02-25] MEDS: Famotidine 20 MG/2 ML SDV IV SCH (09:27)
[2017-02-25] MEDS: diphenhydrAMINE 50 MG/ML SDV IVPUSH SCH (09:30)
[2017-02-25] MEDS ORDERED: Cyanocobalamin (Vitamin B12) 1,000 MCG/ML SDV IM ONE (10:00)
[2017-02-25] MEDS ORDERED: Iron Sucrose Complex 500 MG in Sodium Chloride 0.9% 250 ML IV SCH (10:00)
[2017-02-25] MEDS: Pantoprazole 40 MG Vial IV SCH (11:45)
[2017-02-25] MEDS ORDERED: hydrOXYzine HCl 100 MG/2 ML SDV IM PRN (16:29)
[2017-02-25] MEDS ORDERED: NICOTINE PATCH REMOVAL TOP SCH (21:00)
[2017-02-25] MEDS: PARoxetine 20 MG Tab PO SCH (22:09)
[2017-02-26] MEDS: Acetaminophen/oxyCODONE 325-5 MG Tab PO PRN ×3 (02:17→11:30)
[2017-02-26] MEDS: methylPREDNISolone Sodium Succinate 125 MG/2 ML SDV IVPUSH SCH (05:23)
[2017-02-26] MEDS: Famotidine 20 MG/2 ML SDV IV SCH (05:23)
[2017-02-26] MEDS: diphenhydrAMINE 50 MG/ML SDV IVPUSH SCH (05:23)
[2017-02-26] MEDS: Hydrochlorothiazide 12.5 MG Cap PO SCH ×2 (07:35→09:44)
[2017-02-26] MEDS: Lisinopril 10 MG Tab PO SCH ×2 (07:35→09:44)
[2017-02-26] MEDS: Nicotine 21 MG/24 Hr Patch TRDERM SCH (09:44)
[2017-02-26] MEDS: Bisacodyl 5 MG Tab PO SCH (09:44)
[2017-02-26 11:33] VITALS: BP 124/70
--- NOTE | 2017-02-27 08:21 | PN ---
DATE OF SERVICE: 02/25/2017 The patient has been afebrile with stable vital signs. No major problems were noted overnight oral pain medication today. She will go up to a regular diet. We will give her some bowel stimulation. Likely, she will be ready for discharge home tomorrow. The patient had a reaction to Venofer previously with some hives and itching. Her iron levels are quite low, and we will plan to give her Venofer 500 mg IV today and tomorrow, but we will pre-treat her with Solu-Medrol, Benadryl, and Pepcid; as that hopefully will confirm that she is able to take the IV Venofer in that form. Otherwise, her B12 levels have also been low and those will be supplemented likewise. Neftaly Donato MD /[id number]
--- NOTE | 2017-02-27 08:48 | DISCH ---
FINAL DIAGNOSES: 1. Incarcerated incisional hernia. 2. Non-incarcerated umbilical hernia. 3. Bariatric surgery, status post duodenal switch. 4. Iron deficiency. 5. Allergic reaction to Venofer. OPERATIVE PROCEDURE: Done on 02/24/2017 was laparoscopic repair of incarcerated incisional hernia and a non-incarcerated umbilical hernia with placement of Interceed mesh. HOSPITAL COURSE: This 31-year-old female is presenting with increasingly symptomatic incisional hernia that is located in the upper aspect of the midline incision used for previous section. On the day of admission, the patient underwent laparoscopic repair of this. She was also noted to have a small umbilical hernia, which was concurrently repaired with mesh. Postoperatively, no significant problems were noted other than with her low iron levels, Venofer infusion was given. She received pre-infusion Solu-Medrol, Benadryl, and Pepcid; but despite that the infusion, did have reaction with tingling in her feet and such. She received most of that infusion, so, at least, for now we are probably in reasonably good shape in terms of iron levels. DISCHARGE MEDICATIONS: At this point, she will be discharged home with Percocet 5/325 mg 1 or 2 tabs q.4 hours p.r.n. pain, #50. We will also start her on Vitron-C, which she says she has not taken before, see if we can get her iron levels up orally from this point. Otherwise, continue her present home medications. FOLLOWUP: She will be following up with Salud Pop at [facility] on 03/06/2017.
--- NOTE | 2017-02-27 13:15 | OR ---
DATE OF PROCEDURE: 02/24/2017 PREOPERATIVE DIAGNOSIS: Incisional hernia. POSTOPERATIVE DIAGNOSES: 1. Incarcerated incisional hernia. 2. Nonincarcerated umbilical hernia. 3. Marked intra-abdominal adhesions. OPERATIVE PROCEDURES: 1. Diagnostic laparoscopy with lysis of extensive adhesions. a. Repair of incarcerated incisional hernia with mesh (59222). b. Repair of nonincarcerated umbilical hernia with mesh (60473). c. Placement of Interceed mesh to displace small bowel and other viscera from pelvic and abdominal wall to limit recurrent adhesion formation ([id number]). ANESTHESIA: General. HAND SILVERING SUPERVISOR: Salud Pop PA-C. INDICATIONS FOR PROCEDURE: This is a 31-year-old female presenting with an increasingly symptomatic incisional hernia. This is located in the upper aspect of the lower midline incision used for previous sections. After preoperative evaluation and discussion, she wished to proceed with a laparoscopic repair of this with mesh. Potential risks including bleeding, infection, injury to underlying viscera, problems with mesh becoming infected or the hernia recurring were all reviewed, and the patient wishes to proceed. DETAILS OF PROCEDURE: The patient was taken to the operating room and after general endotracheal anesthesia was induced, a Rader catheter was inserted and the abdomen prepped and draped. In the right lateral mid abdomen, a transverse incision was made. The peritoneal cavity entered under direct vision with Optiview trocar, inflated to 15 mmHg pressure of CO2. Laparoscope was then reinserted. No underlying trocar insertion site injuries were seen. Following this, eventually 3 additional 5 mm trocars were placed, 2 on the right side and 1 on the superior aspect of the abdomen. The patient noted to have quite in the way of adhesions primarily the omentum as well as some segments of small bowel. This included some incarcerated omentum within the incisional hernia. After these were dissected down with combination of sharp and Harmonic scalpel dissection, the patient also was noted to have a nonincarcerated umbilical hernia with a defect of around 1 cm. After this dissection had been completed, the area of herniation was mapped out and a Ventralight ST mesh with the balloon positioning system measuring 20.3 cm x 15.2 cm was selected. Sutures on the polypropylene side of the mesh were then placed on the ends of the long axis and the mesh was placed in antibiotic-containing saline solution and then placed in an intraperitoneal location of the point where the sutures would be pulled up for general orientation of the mesh and then marked out and small stab wounds were made there as well over the center of the mesh for the balloon catheter to be pulled up. Once the sutures were pulled up as well as the balloon catheter, the balloon was inflated thus pushing the mesh up against the abdominal wall. The mesh was then affixed circumferentially with absorbable tacking screws and this was initially done with a roll on the external circumference of the mesh and then secondary roll was then placed a few cm inside the mesh to additionally fix the mesh in position. At that point, no further problems were noted. Because of the extensive adhesions encountered as well as likely the adhesions would form on the mesh, an Interceed mesh was then placed along the pelvic sidewalls behind the bladder and then beneath the mesh to displace the small bowel away from the mesh and would limit recurrent adhesion formation. Once this was accomplished, the trocars were sequentially removed. The fascia at the 12 mm site was closed with 0 Vicryl stitch and the skin at each incision with some 4-0 Vicryl skin stitch. Dressing was applied. The patient was taken to the recovery room in satisfactory condition. Physician assistant case manager Salud Pop played an essential role in assisting in this case, helping to position the patient, retract structures as needed, as well as suturing and cutting sutures when indicated. Her presence improved the patient's safety and decreased operative time. Neftaly Donato MD /[id number]
== END 2017-02-26 12:23 | disposition home or self-care (01) | DRG 336 ==
LOC: JP.SDS 06:55 → JP.MS 06:55 → JP.2SS 10:27 → EDSTATUS 11:30
PROVIDERS: ADMIT Surgery; ATTEND Surgery
PROC: 0WUF4JZ Supplement Abdominal Wall with Synthetic Substitute, Percutaneous Endoscopic Approach (ICD-10-PCS; principal; 2017-02-24)
PROC: 0DNU4ZZ Release Omentum, Percutaneous Endoscopic Approach (ICD-10-PCS; 2017-02-24)
PROC: 0WUF4JZ Supplement Abdominal Wall with Synthetic Substitute, Percutaneous Endoscopic Approach (ICD-10-PCS; 2017-02-24)
PROC: 3E0M45Z Introduction of Adhesion Barrier into Peritoneal Cavity, Percutaneous Endoscopic Approach (ICD-10-PCS; 2017-02-24)
DX: K43.0 Incisional hernia with obstruction, without gangrene (principal); K91.2 Postsurgical malabsorption, not elsewhere classified; K42.9 Umbilical hernia without obstruction or gangrene; K66.0 Peritoneal adhesions (postprocedural) (postinfection); F41.9 Anxiety disorder, unspecified; F32.9 Major depressive disorder, single episode, unspecified; F54 Psychological and behavioral factors associated with disorders or diseases classified elsewhere; Z98.84 Bariatric surgery status; E55.9 Vitamin D deficiency, unspecified; E53.8 Deficiency of other specified B group vitamins; Z86.32 Personal history of gestational diabetes; Z91.048 Other nonmedicinal substance allergy status; E61.1 Iron deficiency; R20.2 Paresthesia of skin; T45.4X5A Adverse effect of iron and its compounds, initial encounter; Y92.239 Unspecified place in hospital as the place of occurrence of the external cause
CPT/HCPCS: 88302; 94762; A9270-GY; C1781; C9113; J0690; J0694; J1100; J1170; J1200; J1756; J2001; J2185; J2405; J2704; J2710; J2930; J3010; J3420; J7030; J7042; J7050; S0028

== ENCOUNTER 2017-03-15 07:31 | Inpatient (IN) | payer MEDICAID ==
[2017-03-15] MEDS ORDERED: Iopamidol 612 MG/ML 100 ML Bottle IV PRN (15:35)
[2017-03-15] MEDS ORDERED: Acetaminophen 650 MG Supp RECTAL PRN (15:41)
[2017-03-15] MEDS ORDERED: Acetaminophen 325 MG Tab PO PRN (15:41)
[2017-03-15] MEDS ORDERED: Iohexol 300 MG/ML 30 ML Bottle PO ONE (15:42)
[2017-03-15] MEDS: Acetaminophen/oxyCODONE 325-5 MG Tab PO PRN ×2 (16:10→20:38)
[2017-03-15] MEDS: Dextrose 5%-Lactated Ringers 1,000 ML IV SCH ×2 (16:14→23:19)
[2017-03-15] MEDS: Pantoprazole 40 MG Vial IV SCH (16:29)
[2017-03-15] MEDS ORDERED: Iohexol 647 MG/ML 10 ML SDV PO ONE (16:30)
[2017-03-15] MEDS ORDERED: MVI, Adult with Vitamin K 10 ML, Magnesium Sulfate 2 GM, Folic Acid 1 MG, Thiamine 100 ... IV ONE ×5 (17:00)
--- NOTE | 2017-03-15 20:01 | PCM.HP ---
H&P History of Present Illness - General Date of Service: 03/15/17 Admit Problem/Dx: Admission Diagnosis/Problem Admission Diagnosis/Problem Constipation Source of Information: Patient History Limitations: Reports: No Limitations - History of Present Illness Initial Comments - Free Text/Narative: Yane states that she is having mid low pelvic pain which started a couple days ago. She states the pain is a 6/10, collicky cramping. She states she gets the feeling like she has to have a BM and it is very painful. Last BM was today. Denies any associated signs and symptoms. Has had only protein shakes and water. weight is down 10.5 lbs since 03/06/17. States she feels constipated. Surgery for hernia repair, lysis of adhesions and repair of incarcerated incisional hernia with mesh and repair of nonincarcerated umbilical hernia with mesh on 02/24/18. Onset of Symptoms: Reports: Gradual Duration of Symptoms: Reports: Day(s): (3) Location: Reports: Abdomen Quality: Reports: Dull, Pressure, Same as Previous Episode Severity: Moderate Improves with: Reports: None Worsens with: Reports: Eating, Movement Context: Reports: Sick Contact Associated Symptoms: Reports: Other (constipation) Lower Abdominal Pain Score (Numeric/FACES): 6 - Related Data Allergies/Adverse Reactions: Allergies Allergy/AdvReac Type Severity Reaction Status Date / Time iron [From Venofer] Allergy Hives Verified 02/24/17 08:02 seasonal Allergy Cannot Uncoded 02/22/17 08:07 Remember Home Medications: Home Meds Cyanocobalamin (Vitamin B-12) [Vitamin B-12] 1,000 mcg SL DAILY #100 tab.subl [Rx] Multivitamin [Kid's Vitamins Complete] 1 each PO BID #100 tab.chew 06/25/15 [Rx] Calcium Citrate/Vitamin D3 [Calcium Citrate + D] 400 - 500 mg PO BID 11/24/15 [ History] LORazepam 0.5 mg PO BID PRN 11/24/15 [History] Omeprazole 40 mg PO BIDMEALS 11/24/15 [History] Thiamine [Vitamin B-1] 100 mg PO DAILY 03/17/16 [History] Cyclobenzaprine [Flexeril] 10 mg PO PRN 02/22/17 [History] Lisinopril/Hydrochlorothiazide [Lisinopril-Hctz 10-12.5 mg Tab] 1 tab PO DAILY 02/22/17 [History] PARoxetine [Paxil] 10 mg PO DAILY 02/22/17 [History] Iron,Carbonyl/Ascorbic Acid [Vitron-C Tablet] 1 each PO DAILY #30 tablet. [Rx] Past Medical History HEENT History: Reports: Allergic Rhinitis, Impaired Vision Cardiovascular History: Reports: Hypertension Respiratory History: Reports: None Gastrointestinal History: Reports: GERD Genitourinary History: Reports: None [employer] History: Reports: Dysfunctional Uterine Bleeding, , Spontaneous Musculoskeletal History: Reports: Fracture Neurological History: Reports: Concussion, Head Trauma Psychiatric History: Reports: Anxiety, Depression, PTSD Endocrine/Metabolic History: Reports: Diabetes, Gestational Hematologic History: Reports: None Immunologic History: Reports: None Oncologic (Cancer) History: Reports: None Dermatologic History: Reports: None - Infectious Disease History Infectious Disease History: Reports: Chicken Pox - Past Surgical History HEENT Surgical History: Reports: None Cardiovascular Surgical History: Reports: None Respiratory Surgical History: Reports: None GI Surgical History: Reports: Bariatric Procedure, Hernia, Abdominal Female Surgical History: Reports: Section, D&C Musculoskeletal Surgical History: Reports: None Social & Family History - Family History HEENT: Reports: Hearing Impairment, Impaired Vision, Otitis Media, Sinusitis Cardiac: Reports: Bypass, CAD, [place] Respiratory: Reports: None GI: Reports: None : Reports: None OBGYN: Reports: None Musculoskeletal: Reports: None Neurological: Reports: Alzheimers Disease, Dementia Psychiatric: Reports: Depression Endocrine/Metabolic: Reports: Diabetes, type II Hematologic: Reports: None Immunologic: Reports: None Dermatologic: Reports: None Oncologic: Reports: None - Tobacco Use Smoking Status *Q: Current Every Day Smoker Years of Tobacco use: 8 Packs/Tins Daily: 0.5 Used Tobacco, but Quit: No Month Tobacco Last Used: 11/2016 Second Hand Smoke Exposure: No - Caffeine Use Caffeine Use: Reports: None - Alcohol Use Days Per Week of Alcohol Use: 0 Number of Drinks Per Day: 5 Total Drinks Per Week: 0 - Recreational Drug Use Recreational Drug Use: No H&P Review of Systems - Review of Systems: Review Of Systems: See Below General: Reports: Weakness, Fatigue, Decreased Appetite, Weight Loss HEENT: Reports: No Symptoms Pulmonary: Reports: No Symptoms Cardiovascular: Reports: No Symptoms Gastrointestinal: Reports: Abdominal Pain, Constipation, Decreased Appetite Genitourinary: Reports: No Symptoms Musculoskeletal: Reports: No Symptoms Skin: Reports: No Symptoms Psychiatric: Reports: Depression, Anxiety Neurological: Reports: No Symptoms Hematologic/Lymphatic: Reports: No Symptoms Immunologic: Reports: No Symptoms Exam - Exam Exam: See Below - Vital Signs Vital Signs: Last Vital Signs Temp 98.6 F 03/15/17 19:02 Pulse 80 03/15/17 19:02 Resp 20 03/15/17 19:02 BP 125/70 03/15/17 19:02 Pulse Ox 100 03/15/17 19:02 Weight: 143 lb 11.2 oz - Exam General: Moderate Distress HEENT: PERRLA Neck: Supple Lungs: Clear to Auscultation, Normal Respiratory Effort Cardiovascular: Regular Rate, Regular Rhythm GI/Abdominal Exam: Other (Well healed midline hernia incision. Pain in mid lower quadrant and bilateral lower abdominal/pelvic quadrants. ) (Female) Exam: Deferred Rectal (Female) Exam: Deferred Extremities: Normal Inspection, No Pedal Edema Neurological: Cranial Nerves Intact, Reflexes Equal Bilateral Neuro Extensive - Mental Status: Alert, Oriented x3 Neuro Extensive - Motor, Sensory, Reflexes: CN II-XII Intact Psychiatric: Alert, Normal Affect, Normal Mood - Patient Data Lab Results Last 24 hrs: Laboratory Results - last 24 hr 03/15/17 03/15/17 Range/Units 15:40 15:40 WBC 6.4 (4.5-11.0) K/uL RBC 4.65 (3.30-5.50) M/uL Hgb 12.8 D (12.0-15.0) g/dL Hct 38.6 (36.0-48.0) % MCV 83 (80-98) fL MCH 28 (27-31) pg MCHC 33 (32-36) % Plt Count 456 H (150-400) K/uL Neut % (Auto) 59 (36-66) % Lymph % (Auto) 31 (24-44) % [place] % (Auto) 8 H (2-6) % Eos % (Auto) 2 (2-4) % Baso % (Auto) 0 (0-1) % Sodium 140 (140-148) mmol/L Potassium 3.5 L (3.6-5.2) mmol/L Chloride 102 (100-108) mmol/L Carbon Dioxide 25 (21-32) mmol/L Anion Gap 16.5 H (5.0-14.0) mmol/L BUN 16 (7-18) mg/dL Creatinine 0.9 (0.6-1.0) mg/dL Est Cr Clr Drug Dosing TNP Estimated GFR (MDRD) > 60 (>60) Glucose 82 (74-106) mg/dL Calcium 9.9 D (8.5-10.1) mg/dL Phosphorus 4.4 (2.5-4.9) mg/dL Magnesium 2.0 D (1.8-2.4) mg/dL Total Bilirubin 0.4 (0.2-1.0) mg/dL AST 51 H D (15-37) U/L ALT 60 D (12-78) U/L Alkaline Phosphatase 151 H (46-116) U/L Total Protein 8.5 H (6.4-8.2) g/dL Albumin 3.6 (3.4-5.0) g/dL Globulin 4.9 H (2.3-3.5) g/dL Albumin/Globulin Ratio 0.7 L (1.2-2.2) Result Diagrams: 03/15/17 15:40 03/15/17 15:40 *Q Meaningful Use (ADM) - VTE *Q VTE Criteria *Q: - Stroke *Q Stroke Criteria *Q: - AMI *Q AMI Criteria *Q: Problem List Initiated/Reviewed/Updated: Yes Orders Last 24hrs: Active Orders 24 hr Category Date Time Status Admission Status [Patient Status] [ADT] Routine ADT 03/15/17 14:45 Active Intake and Output [RC] QSHIFT Care 03/15/17 15:36 Active Up ad Steph [RC] ASDIRECTED Care 03/15/17 15:28 Active Vital Signs [RC] Q4H Care 03/15/17 15:35 Active Clear Liquid Diet [DIET] Diet 03/15/17 Dinner Active Abdomen Pelvis w Cont [CT] Routine Exams 03/15/17 15:25 Taken Acetaminophen [Tylenol] Med 03/15/17 15:41 Active 325 mg PO Q4H PRN Acetaminophen [Tylenol] Med 03/15/17 15:41 Active 650 mg RECTAL Q4H PRN Acetaminophen/oxyCODONE [Percocet 325-5 MG] Med 03/15/17 15:42 Active 1 - 2 tab PO Q4H PRN Dextrose 5%-Lactated Ringers 1,000 ml Med 03/15/17 15:45 Active IV ASDIRECTED Iopamidol [Isovue-300 (61%)] Med 03/15/17 15:35 Active 100 ml IV . DIRECTED PRN PARoxetine [Paxil] Med 03/16/17 09:00 Active 10 mg PO DAILY Pantoprazole [ProTONIX IV] Med 03/15/17 17:00 Active 40 mg IV Q24H Sodium Chloride 0.9% [Normal Saline] 74 ml Med 03/15/17 15:45 Active IV ASDIRECTED SCD [Sequential Compression Device] [OM.PC] Routine Oth 03/15/17 15:36 Ordered Code Status [Resuscitation Status] Routine Resus Stat 03/15/17 15:33 Ordered Medication Orders Acetaminophen (Tylenol) 325 mg PO Q4H PRN PRN Reason: PAIN Acetaminophen (Tylenol) 650 mg RECTAL Q4H PRN PRN Reason: PAIN Sodium Chloride (Normal Saline) 74 mls @ 3 mls/sec IV ASDIRECTED SUMMER Last Admin: 03/15/17 17:18 Dose: 3 mls/sec Dextrose/Lactated Ringer's (Dextrose 5%-Lactated Ringers) 1,000 mls @ 150 mls/ hr IV ASDIRECTED SUMMER Last Admin: 03/15/17 16:14 Dose: 150 mls/hr Iopamidol (Isovue-300 (61%)) 100 ml IV . DIRECTED PRN PRN Reason: RADIOLOGY EXAM Stop: 03/16/17 15:36 Last Admin: 03/15/17 17:18 Dose: 100 ml Oxycodone/Acetaminophen (Percocet 325-5 Mg) 1 - 2 tab PO Q4H PRN PRN Reason: PAIN Last Admin: 03/15/17 16:10 Dose: 2 tab Pantoprazole Sodium (Protonix Iv) 40 mg IV Q24H SUMMER Last Admin: 03/15/17 16:29 Dose: 40 mg Paroxetine HCl (Paxil) 10 mg PO DAILY [facility] Assessment: Constipation SP Duodenal Switch Unspecified Surgical Malabsorption Vitamin B Deficiency Vitamin D Deficiency Plan: Admit - Observation Status 7 See Copy of Orders. Salud Hampton 03/15/17
[2017-03-15] MEDS: PARoxetine 20 MG Tab PO SCH (20:38)
[2017-03-16] MEDS: Acetaminophen/oxyCODONE 325-5 MG Tab PO PRN ×6 (00:50→21:12)
[2017-03-16] MEDS: Dextrose 5%-Lactated Ringers 1,000 ML IV SCH ×3 (06:01→20:20)
[2017-03-16] MEDS ORDERED: LORazepam 0.5 MG Tab PO PRN (07:42)
--- NOTE | 2017-03-16 08:59 | PN ---
DATE OF SERVICE: 03/16/2017 SUBJECTIVE: Yane reports she is feeling better. Her pain is more controlled. She is receiving IV fluids and did get 1 L of vitamin bag. Has been on clear liquids. Oral intake was 1450. Vital signs have been stable. She has been afebrile. Remains to have some tenderness in her left lower quadrant. REVIEW OF SYSTEMS: Remainder of review of systems negative for any pertinent positives and negatives. OBJECTIVE: GENERAL: Yane Cabral is a 31-year-old female, alert, orientated. VITAL SIGNS: TPR 97.6, 77, 16. Blood pressure 125/69. HEENT: Negative. NECK: Supple. HEART: Regular rate and rhythm. LUNGS: Clear. ABDOMEN: Flat, soft. Well-healed midline incision. There is minimal tenderness in the left lower quadrant. EXTREMITIES: Without peripheral edema. ASSESSMENT: 1. Inflammatory change in the mid abdomen and pelvis consistent with enteritis of small bowel and colitis large bowel. 2. Constipation alternating with diarrhea. 3. Status post duodenal switch. PLAN: 1. Check stool samples for O and P and C. diff. If no bowel movement 2 hours after breakfast, to give a saline enema to get specimen. 2. Step-4 gastric bypass diet. 3. Unasyn 3 g IV q.6 hours. 4. N.p.o. at 3:00 a.m., 03/24/2017. 5. Change the patient's status to inpatient. Expected time of hospitalization 2 to 3 nights and 3 days. Salud Pop PA-C /[id number]
[2017-03-16] MEDS: Hydrochlorothiazide 12.5 MG Cap PO SCH (09:06)
[2017-03-16] MEDS: Lisinopril 10 MG Tab PO SCH (09:06)
[2017-03-16] MEDS: Ampicillin/Sulbactam Na 3 GM in Sodium Chloride 0.9% 100 ML IV SCH ×3 (09:43→20:23)
[2017-03-16] MEDS: Pantoprazole 40 MG Vial IV SCH (17:17)
[2017-03-16] MEDS: PARoxetine 20 MG Tab PO SCH (21:12)
[2017-03-17] MEDS: Acetaminophen/oxyCODONE 325-5 MG Tab PO PRN ×3 (02:08→11:27)
[2017-03-17] MEDS: Ampicillin/Sulbactam Na 3 GM in Sodium Chloride 0.9% 100 ML IV SCH ×2 (02:08→08:39)
[2017-03-17] MEDS: Dextrose 5%-Lactated Ringers 1,000 ML IV SCH (03:57)
[2017-03-17] MEDS: Hydrochlorothiazide 12.5 MG Cap PO SCH (08:38)
[2017-03-17] MEDS: Lisinopril 10 MG Tab PO SCH (08:38)
--- NOTE | 2017-03-17 09:07 | DISCH ---
ADMISSION DIAGNOSES: 1. Constipation. 2. Low abdominal pain. 3. Dehydration. 4. Status post duodenal switch. 5. Unspecified surgical malabsorption. 6. Vitamin D deficiency. 7. Vitamin B deficiency. DISCHARGE DIAGNOSES: Inflammatory changes in the midabdomen and pelvis consistent with enteritis of small bowel and colitis of large bowel. HISTORY: Yane Cabral is a pleasant 31-year-old female who presented to the clinic on 02/12/2017 with abdominal pain, colicky, and cramping. She was admitted to [place], [place], and a CT scan revealed changes in her bowel consistent of inflammatory changes in the midabdomen and pelvis consistent with enteritis of the small bowel and colitis of large bowel. She had stools sample for C. diff, O&P, and these were negative. She was started on ampicillin sodium/sulbactam sodium 3 g q.6 h. IV fluids and IV Protonix and Percocet for pain management. She tolerated a step 4 gastric bypass diet, pain was well-managed, her activity was good, and she was able to be discharged to home on 03/17/2017. PHYSICAL EXAMINATION: GENERAL: Yane Cabral is a 31-year-old female. VITAL SIGNS: Height is 5 feet, 6.93 inches. Weight is 130 pounds. TPR is 98.5, 84, 16, and blood pressure 128/67. HEENT: Negative. NECK: Supple. HEART: Regular rate and rhythm. LUNGS: Clear. ABDOMEN: Well-healed midline lower abdominal incision. Abdomen is less tender and there remains to be minimal tenderness in the left lower quadrant. EXTREMITIES: Without peripheral edema. NEURO: Intact. SKIN: Without rash. DISPOSITION: Discharged to home with no complications. CONDITION: Stable. FOLLOWUP APPOINTMENT: With Salud Pop PA-C on 03/22/[address] at [address] [facility]. DISCHARGE MEDICATIONS: New prescriptions: 1. Percocet 5/325 mg 1 to 2 every 4 hours p.r.n. pain, #40. 2. Doxycycline 100 mg oral b.i.d., #20. She is to resume her home medications of: 1. Calcium citrate with vitamin D3 500 mg b.i.d. 2. Vitamin B12 1000 mcg sublingual daily. 3. Flexeril 10 mg p.r.n. muscle spasms. 4. Vitron-C 1 tablet daily. 5. Lorazepam 0.5 mg b.i.d. anxiety. 6. Lisinopril/hydrochlorothiazide 10/12.5 mg 1 tablet daily. 7. Multivitamin chewable 1 twice daily. 8. Omeprazole 40 mg twice a day. 9. Paxil 10 mg oral daily. 10.Thiamine 100 mg daily. DISCHARGE DIET: Usual diet as tolerated and drink 8 to 10 glasses of water a day. ACTIVITY: As tolerated. Driving, do not drive on narcotic pain medication. Shower/bathing, may shower. Notify provider if any fever or increased pain.
[2017-03-17 11:30] VITALS: BP 113/48
== END 2017-03-17 12:37 | disposition home or self-care (01) | DRG 392 ==
LOC: JP.MS 07:31 → OBSVTOIN 03-16 07:31
PROVIDERS: ADMIT Surgery; ATTEND Surgery
DX: K52.9 Noninfective gastroenteritis and colitis, unspecified (principal); K91.2 Postsurgical malabsorption, not elsewhere classified; K59.00 Constipation, unspecified; E86.0 Dehydration; E53.9 Vitamin B deficiency, unspecified; E55.9 Vitamin D deficiency, unspecified; R10.9 Unspecified abdominal pain; I10 Essential (primary) hypertension; K21.9 Gastro-esophageal reflux disease without esophagitis; F17.210 Nicotine dependence, cigarettes, uncomplicated
CPT/HCPCS: 36415; 74177; 80053; 83735; 84100; 85025; 87177; 87209; 87493; 96361; 96374; 96375; 96376; A9270-GY; C9113; G0378; G0379; J0295; J3411; J3475; J3490; J7030; J7042; J7120; Q9967

== ENCOUNTER 2017-03-27 19:28 | Emergency (ER) | payer MEDICAID ==
--- NOTE | 2017-03-27 21:55 | EDM.PDOC ---
ED HPI GENERAL MEDICAL PROBLEM - General Chief Complaint: Abdominal Pain Stated Complaint: ABD PAIN Time Seen by Provider: 03/27/17 21:00 Source of Information: Reports: Patient History Limitations: Reports: No Limitations - History of Present Illness INITIAL COMMENTS - FREE TEXT/NARRATIVE: 32-year-old female with chronic abdominal pain, had a hernia repair done and is had pain ever since which is worse than prior to her surgery. She was seen a week ago and a CT scan showed some diffuse enteritis and mild colonic thickening but it improved after 2 days of hospitalization without surgical treatment. Her pain is persisting, she ran out of her oxycodone 2 days ago and is trying tramadol but that's not helping. No vomiting, no fevers, denies any distention or diarrhea. The pain waxes and wanes but never goes away completely , it's mostly in her lower abdomen. She is very anxious about the continuing pain. Onset: Unknown/Unsure Location: Reports: Abdomen Quality: Reports: Pressure, Stabbing Severity: Moderate Improves with: Reports: None Worsens with: Reports: None Associated Symptoms: Denies: Chest Pain, Cough, Fever/Chills, Nausea/Vomiting, Shortness of Breath Abdominal Pain Score (Numeric/FACES): 8 - Related Data Allergies Allergy/AdvReac Type Severity Reaction Status Date / Time iron [From Venofer] Allergy Hives Verified 03/27/17 20:53 seasonal Allergy Cannot Uncoded 03/27/17 20:53 Remember Home Meds: Home Meds Cyanocobalamin (Vitamin B-12) [Vitamin B-12] 1,000 mcg SL DAILY #100 tab.subl [Rx] Multivitamin [Kid's Vitamins Complete] 1 each PO BID #100 tab.chew 06/25/15 [Rx] Calcium Citrate/Vitamin D3 [Calcium Citrate + D] 400 - 500 mg PO BID 11/24/15 [ History] LORazepam 0.5 mg PO BID PRN 11/24/15 [History] Omeprazole 40 mg PO BIDMEALS 11/24/15 [History] Thiamine [Vitamin B-1] 100 mg PO DAILY 03/17/16 [History] Cyclobenzaprine [Flexeril] 10 mg PO ASDIRECTED PRN 02/22/17 [History] Lisinopril/Hydrochlorothiazide [Lisinopril-Hctz 10-12.5 mg Tab] 1 tab PO DAILY 02/22/17 [History] PARoxetine [Paxil] 10 mg PO DAILY 02/22/17 [History] Iron,Carbonyl/Ascorbic Acid [Vitron-C Tablet] 1 each PO DAILY #30 tablet. 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 HAND History: Reports: Dysfunctional Uterine Bleeding, , Spontaneous Musculoskeletal History: Reports: Fracture Neurological History: Reports: Concussion, Head Trauma Psychiatric History: Reports: Anxiety, Depression, PTSD Endocrine/Metabolic History: Reports: Diabetes, Gestational Hematologic History: Reports: None, B12 Deficiency, Iron Deficiency Immunologic History: Reports: None Oncologic (Cancer) History: Reports: None Dermatologic History: Reports: None - Infectious Disease History Infectious Disease History: Reports: Chicken Pox - Past Surgical History HEENT Surgical History: Reports: None Cardiovascular Surgical History: Reports: None Respiratory Surgical History: Reports: None GI Surgical History: Reports: Bariatric Procedure, Hernia, Abdominal, Hernia Repair/Other Female Surgical History: Reports: Section, D&C Musculoskeletal Surgical History: Reports: None Social & Family History - Family History HEENT: Reports: Hearing Impairment, Impaired Vision, Otitis Media, Sinusitis Cardiac: Reports: Bypass, CAD, [place] Respiratory: Reports: None GI: Reports: None : Reports: None OBGYN: Reports: None Musculoskeletal: Reports: None Neurological: Reports: Alzheimers Disease, Dementia Psychiatric: Reports: Depression Endocrine/Metabolic: Reports: Diabetes, type II Hematologic: Reports: None Immunologic: Reports: None Dermatologic: Reports: None Oncologic: Reports: None - Tobacco Use Smoking Status *Q: Current Every Day Smoker Years of Tobacco use: 1 Packs/Tins Daily: 0.5 Used Tobacco, but Quit: No Month Tobacco Last Used: 11/2016 Second Hand Smoke Exposure: No - Caffeine Use Caffeine Use: Reports: None - Alcohol Use Days Per Week of Alcohol Use: 0 Number of Drinks Per Day: 5 Total Drinks Per Week: 0 - Recreational Drug Use Recreational Drug Use: No ED ROS GENERAL - Review of Systems Review Of Systems: See Below Constitutional: Reports: Malaise. Denies: Fever, Chills HEENT: Reports: No Symptoms Respiratory: Denies: Shortness of Breath Cardiovascular: Denies: Chest Pain GI/Abdominal: Reports: Abdominal Pain. Denies: Nausea, Vomiting : Reports: No Symptoms Skin: Reports: No Symptoms Psychiatric: Reports: Anxiety ED EXAM, GI/ABD - Physical Exam Exam: See Below Exam Limited By: No Limitations General Appearance: Alert, No Apparent Distress Eyes: Bilateral: Normal Appearance (No jaundice, normal hydration) Head: Atraumatic Neck: Normal Inspection Respiratory/Chest: No Respiratory Distress, Lungs Clear GI/Abdominal Exam: Normal Bowel Sounds, Tender (Reacts with tenderness to palpation across the lower abdomen, no focal tenderness or significant guarding) Course - Vital Signs Last Recorded V/S: Last Vital Signs Temp 98.4 F 03/27/17 21:07 Pulse 69 03/28/17 00:29 Resp 16 03/28/17 00:29 BP 117/64 03/28/17 00:29 Pulse Ox 98 03/28/17 00:29 - Orders/Labs/Meds Orders: Active Orders 24 hr Category Date Time Status Abdomen Pelvis w Cont [CT] Stat Exams 03/27/17 22:23 Taken Labs: Laboratory Tests 03/27/17 03/27/17 Range/Units 21:33 21:33 WBC 5.8 (4.5-11.0) K/uL RBC 4.56 (3.30-5.50) M/uL Hgb 12.4 (12.0-15.0) g/dL Hct 38.2 (36.0-48.0) % MCV 84 (80-98) fL MCH 27 (27-31) pg MCHC 33 (32-36) % Plt Count 430 H (150-400) K/uL Neut % (Auto) 50 (36-66) % Lymph % (Auto) 39 (24-44) % [place] % (Auto) 6 (2-6) % Eos % (Auto) 5 H (2-4) % Baso % (Auto) 0 (0-1) % ESR 22 (0-25) mm/hr Sodium 140 (140-148) mmol/L Potassium 3.4 L (3.6-5.2) mmol/L Chloride 103 (100-108) mmol/L Carbon Dioxide 25 (21-32) mmol/L Anion Gap 15.4 H (5.0-14.0) mmol/L BUN 11 (7-18) mg/dL Creatinine 0.9 (0.6-1.0) mg/dL Est Cr Clr Drug Dosing 85.65 mL/min Estimated GFR (MDRD) > 60 (>60) Glucose 89 (74-106) mg/dL Calcium 9.4 (8.5-10.1) mg/dL C-Reactive Protein 0.32 H (0.0-0.3) mg/dL Meds: Medications Discontinued Medications Generic Name Dose Route Start Last Admin Trade Name Freq PRN Reason Stop Dose Admin Hydromorphone HCl 0.5 mg 03/27/17 22:55 03/27/17 23:10 Dilaudid IVPUSH 03/27/17 22:56 0.5 mg ONETIME ONE Administration Sodium Chloride 70 mls @ 3 mls/sec 03/27/17 22:46 03/27/17 23:21 Normal Saline IV 03/27/17 22:47 3 mls/sec ASDIRECTED STA Administration Iopamidol 96 ml 03/27/17 22:46 03/27/17 23:21 Isovue-300 (61%) IV 03/27/17 22:47 100 ml . DIRECTED STA Administration - Re-Assessments/Exams Free Text/Narrative Re-Assessment/Exam: 03/27/17 21:54 CBC, BMP, sedimentation rate and CRP were obtained. Patient was asking for pain control which I elected to hold until labs returned. I did do a [employer] search and she has been through almost 200 oxycodone within the last month. I told her I would feel more comfortable if I knew what I was treating. 03/28/17 00:12 Labs were all excellent and sedimentation rate was normal. A CT in the abdomen and pelvis however still did show abnormalities including evidence of a possible small bowel obstruction and some colonic wall thickening. These were discussed with Dr. Donato, hospitalization was offered but the patient felt if she could have pain control she could recheck with Dr. Donato on Monday. The tramadol was discarded and she was started on Percocet, and given 20 to take 1- 2 every 6 hours. She can return if worsening, or recheck with Dr. Donato on Monday as planned. IMPRESSIONS: 1. Multiple loops of fluid-filled and mildly dilated small bowel present in the anterior mid abdomen measuring up to 2.9 cm in diameter. On coronal image 24 - 29, the transition point is seen in the upper mid abdomen involving a segment of ileum where there is a swirled appearance of the mesenteric vessels. Findings are suggestive of a partial small bowel obstruction from abdominal adhesion or internal hernia. The appearance is similar to prior examination. 2. Mild diffuse small bowel wall thickening is present within the mid to distal small bowel loops. The appearance is similar to prior examination. This is a nonspecific finding that can be seen with a number of conditions including small bowel ischemia, enteritis, vasculitis, or eosinophilic enteritis. Further evaluation with small bowel enema may be helpful. Departure - Departure Time of Disposition: 00:35 Disposition: Home, Self-Care 01 Condition: Fair Clinical Impression: Abdominal pain Qualifiers: Abdominal location: lower abdomen, unspecified Qualified Code(s): R10.30 - Lower abdominal pain, unspecified - Discharge Information Instructions: Abdominal Pain, Adult, [id number] Referrals: Jennifer Dunham CNM [Primary Care Provider] - Forms: ED Department Discharge Care Plan Goals: Continue current medications except take Percocet as needed for pain control. Drink lots of fluids and return if worsening at any time, or recheck with Dr. Donato at the clinic on Monday. Call the clinic tomorrow to inform them that he wants to see you on Monday. - My Orders Last 24 Hours: My Active Orders 03/27/17 22:23 Abdomen Pelvis w Cont [CT] Stat - Assessment/Plan Last 24 Hours: My Active Orders 03/27/17 22:23 Abdomen Pelvis w Cont [CT] Stat
[2017-03-27] MEDS ORDERED: Iopamidol 612 MG/ML 100 ML Bottle IV STA (22:46)
[2017-03-27] MEDS ORDERED: HYDROmorphone 0.5 MG/0.5 ML Syringe IVPUSH ONE (22:55)
[2017-03-28 00:31] VITALS: BP 117/64
== END 2017-03-28 00:36 | disposition home or self-care (01) ==
LOC: JP.ED 19:28
DX: R10.30 Lower abdominal pain, unspecified (principal); F17.210 Nicotine dependence, cigarettes, uncomplicated; I10 Essential (primary) hypertension; Z79.899 Other long term (current) drug therapy; Z91.09 Other allergy status, other than to drugs and biological substances
CPT/HCPCS: 36415; 74177; 80048; 85025; 85651; 86140; 96374; 99284; J1170; J7030; Q9967

== ENCOUNTER 2017-03-31 12:02 | Inpatient (IN) | payer MEDICAID ==
[~2017-03-31 12:02] MED LIST: Acetaminophen 500 MG Tab PO ONE; Bupivacaine 0.5%/EPINEPHrine 1:200,000 50 ML MDV ONE; Celecoxib 200 MG Cap PO ONE; Dextrose 5%-Lactated Ringers 1,000 ML IV SCH; Gabapentin 300 MG Cap PO ONE; Scopolamine 1.5 MG Transdermal Patch TOP SCH
[2017-03-31] MEDS ORDERED: Rocuronium 50 MG/5 ML Vial ONE (12:31)
[2017-03-31] MEDS ORDERED: Succinylcholine 200 MG/10 ML MDV ONE (12:31)
[2017-03-31] MEDS ORDERED: Neostigmine Methylsulfate 1 MG/ML 5 ML Syringe ONE (12:31)
[2017-03-31] MEDS ORDERED: Glycopyrrolate 0.2 MG/ML 5 ML MDV ONE (12:31)
[2017-03-31] MEDS ORDERED: Dexamethasone 4 MG/ML SDV ONE (12:31)
[2017-03-31] MEDS ORDERED: Propofol 200 MG/20 ML SDV ONE (12:31)
[2017-03-31] MEDS ORDERED: Ondansetron 4 MG/2 ML SDV ONE (12:31)
[2017-03-31] MEDS ORDERED: Meropenem 500 MG SDV ONE (12:44)
[2017-03-31] MEDS ORDERED: cefOXitin 2 GM Vial ONE (12:44)
[2017-03-31] MEDS ORDERED: Lidocaine 2% 100 MG/5 ML Syringe IVPUSH ONE (13:30)
[2017-03-31] MEDS ORDERED: Ketamine 500 MG/5 ML MDV IV ONE (13:30)
[2017-03-31] MEDS ORDERED: cefOXitin 2 GM in Sodium Chloride 0.9% 50 ML IV ONE (13:30)
[2017-03-31] MEDS ORDERED: Ropivacaine 30 ML, Dexamethasone 8 MG, EPINEPHrine 0.4 MG, Sodium Chloride 0.9% 47.6 ML NERVRT ONE ×4 (13:30)
[2017-03-31] MEDS ORDERED: Lactated Ringers 1,000 ML ONE (15:31)
[2017-03-31] MEDS ORDERED: fentaNYL/Normal Saline 600 MCG/30 ML PCA Vial ONE (16:03)
[2017-03-31] MEDS: HYDROmorphone/Normal Saline 15 MG/30 ML PCA IV PRN ×2 (16:05→16:13)
[2017-03-31] MEDS ORDERED: Naloxone 0.4 MG/ML SDV IV PRN (16:24)
[2017-03-31] MEDS ORDERED: hydrOXYzine HCl 100 MG/2 ML SDV IM PRN (17:00)
[2017-03-31] MEDS ORDERED: SCOPOLAMINE PATCH CHECK TOP SCH ×2 (17:00)
[2017-03-31] MEDS ORDERED: diphenhydrAMINE 50 MG/ML SDV IVPUSH PRN (17:00)
[2017-03-31] MEDS ORDERED: Metoclopramide 10 MG/2 ML SDV IVPUSH PRN (17:00)
[2017-03-31] MEDS ORDERED: Ondansetron 4 MG/2 ML SDV IVPUSH PRN (17:00)
[2017-03-31] MEDS ORDERED: Labetalol 20 MG/4 ML Syringe IVPUSH PRN (17:00)
[2017-03-31] MEDS: Lidocaine 0.4%/D5W 2 GM/500 ML BAG IV SCH (17:50)
[2017-03-31] MEDS: Dextrose 5%-Lactated Ringers 1,000 ML IV SCH (17:50)
[2017-03-31] MEDS ORDERED: MVI, Adult with Vitamin K 10 ML, Thiamine 200 MG, Chromium/Copper/Mang/Selen/Zn 1 ML in... IV SCH ×4 (18:00)
[2017-03-31] MEDS ORDERED: Pantoprazole 40 MG Vial IVPUSH SCH (18:00)
[2017-03-31] MEDS: Acetaminophen Soln 650 MG/20.3 ML UD Cup PO SCH (18:19)
[2017-03-31] MEDS: cefOXitin 2 GM in Sodium Chloride 0.9% 50 ML IV SCH (19:29)
[2017-03-31] MEDS: Heparin Sodium 5,000 Units/ML Vial SUBCUT SCH (21:47)
[2017-04-01] MEDS: Acetaminophen Soln 650 MG/20.3 ML UD Cup PO SCH ×4 (00:37→18:15)
[2017-04-01] MEDS: Dextrose 5%-Lactated Ringers 1,000 ML IV SCH ×2 (00:37→05:23)
[2017-04-01] MEDS: cefOXitin 2 GM in Sodium Chloride 0.9% 50 ML IV SCH ×3 (00:37→14:49)
[2017-04-01] MEDS ORDERED: Iohexol 647 MG/ML 50 ML SDV PO SCH (03:45)
[2017-04-01] MEDS: HYDROmorphone/Normal Saline 15 MG/30 ML PCA IV PRN ×2 (04:54→20:47)
[2017-04-01] MEDS: Lidocaine 0.4%/D5W 2 GM/500 ML BAG IV SCH (07:13)
[2017-04-01] MEDS ORDERED: LORazepam 0.5 MG Tab PO PRN (07:49)
[2017-04-01] MEDS ORDERED: Dextrose 5%-Lactated Ringers 1,000 ML IV SCH (08:00)
[2017-04-01] MEDS ORDERED: Celecoxib 200 MG Cap PO SCH (08:00)
[2017-04-01] MEDS ORDERED: PARoxetine 20 MG Tab PO SCH (09:00)
[2017-04-01] MEDS: Hydrochlorothiazide 12.5 MG Cap PO SCH (09:32)
[2017-04-01] MEDS: Heparin Sodium 5,000 Units/ML Vial SUBCUT SCH ×2 (09:32→22:24)
[2017-04-01] MEDS: Lisinopril 10 MG Tab PO SCH (09:32)
[2017-04-01] MEDS: Aluminum Hydroxide/Magnesium Hydroxide/Simethicone Susp 30 ML Cup PO PRN ×2 (11:44→18:18)
[2017-04-01] MEDS ORDERED: Pantoprazole 40 MG Tab.CR PO ONE (14:00)
[2017-04-01] MEDS ORDERED: MVI, Adult with Vitamin K 10 ML, Thiamine 200 MG, Chromium/Copper/Mang/Selen/Zn 1 ML in... IV SCH ×4 (16:00)
[2017-04-01] MEDS: Calcium Carbonate 500 MG Tab.Chew PO PRN ×2 (20:18→20:19)
[2017-04-01] MEDS: Pantoprazole 40 MG Tab.CR PO SCH (22:24)
[2017-04-01] MEDS: PARoxetine 20 MG Tab PO SCH (22:24)
[2017-04-02] MEDS: Acetaminophen Soln 650 MG/20.3 ML UD Cup PO SCH ×4 (05:30→17:57)
[2017-04-02] MEDS: Heparin Sodium 5,000 Units/ML Vial SUBCUT SCH ×2 (08:07→22:19)
[2017-04-02] MEDS: Pantoprazole 40 MG Tab.CR PO SCH ×2 (08:07→17:58)
[2017-04-02] MEDS: Lisinopril 10 MG Tab PO SCH (08:08)
[2017-04-02] MEDS: Hydrochlorothiazide 12.5 MG Cap PO SCH (08:08)
[2017-04-02] MEDS ORDERED: Cyanocobalamin (Vitamin B12) 1,000 MCG/ML SDV IM ONE (09:00)
[2017-04-02] MEDS: oxyCODONE 5 MG Tab PO PRN ×3 (11:02→19:47)
[2017-04-02] MEDS: Calcium Carbonate 500 MG Tab.Chew PO PRN ×2 (12:36→20:17)
[2017-04-02] MEDS: PARoxetine 20 MG Tab PO SCH (22:19)
[2017-04-03] MEDS: Acetaminophen Soln 650 MG/20.3 ML UD Cup PO SCH ×3 (00:04→11:58)
[2017-04-03] MEDS: oxyCODONE 5 MG Tab PO PRN ×4 (00:05→11:58)
[2017-04-03] MEDS: Pantoprazole 40 MG Tab.CR PO SCH (08:00)
[2017-04-03] MEDS: Lisinopril 10 MG Tab PO SCH (08:00)
[2017-04-03] MEDS: Hydrochlorothiazide 12.5 MG Cap PO SCH (08:00)
--- NOTE | 2017-04-03 08:27 | PN ---
DATE OF SERVICE: 04/01/2017 The patient has been afebrile with stable vital signs. She is doing better in terms of her abdominal symptoms, and the upper GI x-ray looks good. One can still see some slight narrowing in the efferent limb where it was kinked, but things are flowing through there quite well. I think we will go up to step-3 diet today, pushing herself in terms of a large amount of solids, otherwise restart her usual home medications, and keep going with D[employer]ID today, most likely go with oral medications tomorrow. Neftaly Donato MD /[id number]
[2017-04-03] MEDS: Heparin Sodium 5,000 Units/ML Vial SUBCUT SCH (08:59)
--- NOTE | 2017-04-03 09:25 | CR ---
Limited upper GI The patient is status post Brian-en-Y gastric bypass. There is no extravasation of contrast. The gastr ic pouch empties readily into a nondilated Brian limb. No complications are evident. Impression: 1. Status post Brian-en-Y gastric bypass without evidence for complication.
[2017-04-03 11:03] VITALS: BP 119/67
--- NOTE | 2017-04-03 13:54 | PN ---
DATE OF SERVICE: 04/02/2017 The patient has been afebrile with stable vital signs. She had a little bit of indigestion yesterday, but that appears to be clearing well with Tums and oral intake was good. We will go over to oral pain medication today and have her get in the shower. She may be ready for discharge home tomorrow. Neftaly Donato MD /[id number]
--- NOTE | 2017-04-03 14:27 | OR ---
DATE OF PROCEDURE: 03/31/2017 PREOPERATIVE DIAGNOSIS: Partial small bowel obstruction. POSTOPERATIVE DIAGNOSIS: Focal small bowel volvulus associated with adhesions. OPERATIVE PROCEDURES: Diagnostic laparoscopy with lysis of adhesions and; 1. Reduction of small bowel volvulus (65105). 2. Small bowel resection (75075). ANESTHESIA: General. HUC OB: Salud Pop PA-C. INDICATION FOR PROCEDURE: This is a 32-year-old status post duodenal switch, presenting with some chronic abdominal pain. This has become more of a mid abdominal pain in the last 2 weeks or so, whereas previously she had pain related to a mesh repair in the left lower abdomen of a hernia in that location in February. A CT scan suggested of some angulation of the small bowel mesentery and proximal distention consistent with a probable volvulus. The plan is to proceed with a diagnostic laparoscopy, laparotomy if necessary, and reduction of volvulus with small bowel resection as needed. Potential risks including bleeding and infection, leaks from various GI tract closures, problems with recurrence of the problem overtime were all reviewed, and the patient wishes to proceed. DETAILS OF PROCEDURE: The patient was taken to the operating room. After general endotracheal anesthesia was induced, she was placed in a lithotomy position and a Rader catheter was inserted, and the abdomen was prepped and draped. In the right lateral midabdomen, a transverse incision was made and the peritoneal cavity was entered under direct vision with an Optiview trocar. The patient was noted to have quite a bit of adhesions after inspection of the peritoneum with CO2. At this point, in the right lower quadrant, a 5-mm trocar was placed and following that extensive omental adhesions were then taken down. This allowed eventually 2 additional 5-mm trocars to be placed, one more on the left side and 2 on the right side of the abdomen. At this point, bilateral subcostal transversus abdominis plane blocks were placed. These were placed from visualization inside the abdomen with the needle being positioned just underneath the peritoneum within the transversus abdominis muscle. These were done in subcostal locations bilaterally with a standard solution. At this point, the bowel was inspected. The patient was noted to have quite a bit of distention of the sleeve portion of her duodenal switch. Anesthesia placed an orogastric tube, which resulted in a large amount of bilious material being evacuated. The patient was noted to have a dilation of the afferent limb as well as the efferent limb adjacent to the anastomosis. As one traced out the efferent Brian limb, it was noted to be acutely angulated consistent with a volvulus, this had rotated more or less on itself and was associated with an area of adherence of the small bowel at the inferior aspect of the recently placed mesh. This bowel was felt to be at risk for rupture if we manipulated it too much due to the degree of distention. Given this, removing roughly one-third of the lumen, was divided off at the point where it was attached to the small bowel. This then allowed derotation of the volvulus. Some of the mesenteric defect underlying that was then fixed with some 3-0 Vicryl stitch to help maintain a nice orientation of the small bowel. There appeared to be some narrowing at the point where it had been angulated, but the lumen appeared to be very satisfactory overall in terms of diameter. The area of resected bowel was then dissected off the mesh and then delivered from the field and sent as surgical specimen. At this point, no further problems were noted. The abdomen was irrigated with meropenem- containing saline solution. The trocars were sequentially removed. The fascia at the 12 mm site was closed with 0 Vicryl stitch, and the skin with 4-0 Vicryl skin stitch at each of the incisions. The patient was taken to the recovery room in a satisfactory condition. Physician family law legal assistant, Salud Pop, played an essential role in assisting in this case, helping to position the patient, retract structures as needed, as well as suturing and cutting sutures when indicated. Her presence improved patient safety and decreased the operative time. Neftaly Donato MD /[id number]
--- NOTE | 2017-04-04 07:05 | DISCH ---
ADMISSION DIAGNOSES: 1. Partial small bowel obstruction. 2. Status post duodenal switch. 3. Unspecified surgical malabsorption. 4. B12 deficiency. 5. Bipolar disorder. 6. Essential hypertension. DISCHARGE DIAGNOSES: Diagnostic laparoscopy with lysis of adhesion and reduction of small bowel volvulus, and small bowel resection for focal small bowel volvulus associated with adhesions on 03/31/2017. HISTORY: Yane is a 32-year-old female post duodenal switch, presenting with chronic abdominal pain. After preoperative evaluation and discussion of possible risks and possible complications, she wished to proceed with surgical procedure. HOSPITAL COURSE: Yane had her surgery on 03/31/2017. She had no operative complications. On postop day #1, she was ambulating and tolerating a diet well, using her incentive spirometer. On postop day #2, she was started on oral pain medication and a step-4 gastric bypass diet. On postop day #3, vital signs were stable, pain was well managed, activity was good, and she was able to be discharged to home. PHYSICAL EXAMINATION: GENERAL: Yane Cabral is a 32-year-old female. VITAL SIGNS: Height is 5 feet 6.93 inches. Weight is 143 pounds. TPR is 97.6, 72, 18, and blood pressure 115/60. HEENT: Negative. NECK: Supple. HEART: Regular rate and rhythm. LUNGS: Clear. ABDOMEN: Sutures in place. Abdominal binder is on. EXTREMITIES: Without peripheral edema. DISPOSITION: Discharged to home. CONDITION: Stable and improving. FOLLOWUP APPOINTMENT: With Salud Pop PA-C, on 04/10/2017 at 10 a.m. DISCHARGE MEDICATIONS: Home medications; 1. Tums 500 mg oral as directed p.r.n. heartburn. 2. Oxycodone 5 mg 1 to 2 q.4 hours p.r.n. pain, #40. 3. She is to resume her home medication as prior to admission, which include calcium citrate 500 twice daily, vitamin B12 1000 mcg sublingual daily, Vitron-C one daily, Lorazepam 0.5 mg twice daily p.r.n. anxiety, lisinopril/hydrochlorothiazide 10/12.5 mg 1 tablet daily, multivitamin chewable 1 twice daily, omeprazole 40 mg twice daily, Paxil 10 mg oral daily, and thiamine B1 100 mg oral daily. DISCHARGE DIET: Step-4 gastric bypass diet. Drink 8 to 10 glasses of water a day. ACTIVITY: No lifting greater than 10 pounds for 2 weeks. Driving after discharge, do not drive while on pain medication. Shower/bathing, may shower. DISCHARGE INSTRUCTIONS: Notify provider if any fever, increased pain, nausea, or vomiting. Wound incision care, keep site clean and dry. Wear abdominal binder for 2 weeks and then as tolerated. Special instruction is use incentive spirometer 10 times every hour while awake for 1 week.
== END 2017-04-03 12:10 | disposition home or self-care (01) | DRG 330 ==
LOC: JP.SDS 12:02 → JP.SDSSCHI 12:02 → EDSTATUS 13:30 → JP.2SS 15:45
PROVIDERS: ADMIT Surgery; ATTEND Surgery
PROC: 0DS84ZZ Reposition Small Intestine, Percutaneous Endoscopic Approach (ICD-10-PCS; principal; 2017-03-31)
PROC: 0DN84ZZ Release Small Intestine, Percutaneous Endoscopic Approach (ICD-10-PCS; 2017-03-31)
PROC: 0DB84ZZ Excision of Small Intestine, Percutaneous Endoscopic Approach (ICD-10-PCS; 2017-03-31)
PROC: 3E0T3BZ Introduction of Anesthetic Agent into Peripheral Nerves and Plexi, Percutaneous Approach (ICD-10-PCS; 2017-03-31)
DX: K56.2 Volvulus (principal); K91.2 Postsurgical malabsorption, not elsewhere classified; K66.0 Peritoneal adhesions (postprocedural) (postinfection); E55.9 Vitamin D deficiency, unspecified; E53.8 Deficiency of other specified B group vitamins; F41.9 Anxiety disorder, unspecified; Z98.84 Bariatric surgery status; F17.210 Nicotine dependence, cigarettes, uncomplicated; Z86.32 Personal history of gestational diabetes; K63.89 Other specified diseases of intestine; Z79.52 Long term (current) use of systemic steroids; F31.9 Bipolar disorder, unspecified; I10 Essential (primary) hypertension
CPT/HCPCS: 74240; 74240-26; 88305; 94762; A9270-GY; C9113; J0171; J0330; J0694; J1100; J1170; J1644; J2001; J2185; J2405; J2704; J2710; J2795; J3010; J3410; J3411; J3420; J7030; J7042; J7050; J7120; Q9967

== ENCOUNTER 2017-04-08 14:33 | Emergency (ER) | payer MEDICAID ==
[2017-04-08 14:52] VITALS: BP 126/78
--- NOTE | 2017-04-08 15:07 | EDM.PDOC ---
ED HPI GENERAL MEDICAL PROBLEM - General Chief Complaint: Fever Stated Complaint: CHEST HURT SHORTNESS OF BREATH Time Seen by Provider: 04/08/17 14:58 Source of Information: Reports: Patient, RN Notes Reviewed History Limitations: Reports: No Limitations - History of Present Illness INITIAL COMMENTS - FREE TEXT/NARRATIVE: 32-year-old female presents emergency department day complaint of fever not feeling well she states she recently had surgery last week was discharged on Monday states has felt fatigued fevers up to 102 feels like she's having difficulty breathing no particular chest pain nausea vomiting - Related Data Allergies Allergy/AdvReac Type Severity Reaction Status Date / Time iron [From Venofer] Allergy Hives Verified 03/31/17 12:32 seasonal Allergy Cannot Uncoded 03/31/17 12:32 Remember Home Meds: Home Meds Cyanocobalamin (Vitamin B-12) [Vitamin B-12] 1,000 mcg SL DAILY #100 tab.subl [Rx] Multivitamin [Kid's Vitamins Complete] 1 each PO BID #100 tab.chew 06/25/15 [Rx] Calcium Citrate/Vitamin D3 [Calcium Citrate + D] 400 - 500 mg PO BID 11/24/15 [ History] LORazepam 0.5 mg PO BID PRN 11/24/15 [History] Omeprazole 40 mg PO BIDMEALS 11/24/15 [History] Thiamine [Vitamin B-1] 100 mg PO DAILY 03/17/16 [History] Lisinopril/Hydrochlorothiazide [Lisinopril-Hctz 10-12.5 mg Tab] 1 tab PO DAILY 02/22/17 [History] PARoxetine [Paxil] 10 mg PO DAILY 02/22/17 [History] Iron,Carbonyl/Ascorbic Acid [Vitron-C Tablet] 1 each PO DAILY #30 tablet.dr [Rx] Calcium Carbonate [Tums] 500 mg PO ASDIRECTED PRN tab.chew 04/03/17 [Rx] Past Medical History HEENT History: Reports: Allergic Rhinitis, Impaired Vision Cardiovascular History: Reports: Hypertension Gastrointestinal History: Reports: GERD GAMING ASSOCIATE History: Reports: Dysfunctional Uterine Bleeding, , Spontaneous Musculoskeletal History: Reports: Fracture Neurological History: Reports: Concussion, Head Trauma Psychiatric History: Reports: Anxiety, Depression, PTSD Endocrine/Metabolic History: Reports: Diabetes, Gestational Hematologic History: Reports: B12 Deficiency, Iron Deficiency - Infectious Disease History Infectious Disease History: Reports: Chicken Pox - Past Surgical History HEENT Surgical History: Reports: None Cardiovascular Surgical History: Reports: None Respiratory Surgical History: Reports: None GI Surgical History: Reports: Bariatric Procedure, Hernia, Abdominal, Hernia Repair/Other Female Surgical History: Reports: Section, D&C Neurological Surgical History: Reports: None Musculoskeletal Surgical History: Reports: None Social & Family History - Family History HEENT: Reports: Hearing Impairment, Impaired Vision, Otitis Media, Sinusitis Cardiac: Reports: Bypass, CAD, CT Respiratory: Reports: None GI: Reports: None : Reports: None OBGYN: Reports: None Musculoskeletal: Reports: None Neurological: Reports: Alzheimers Disease, Dementia Psychiatric: Reports: Depression Endocrine/Metabolic: Reports: Diabetes, type II Hematologic: Reports: None Immunologic: Reports: None Dermatologic: Reports: None Oncologic: Reports: None - Tobacco Use Smoking Status *Q: Former Smoker Years of Tobacco use: 4 Packs/Tins Daily: 0.5 Used Tobacco, but Quit: Yes Month Tobacco Last Used: OCT Second Hand Smoke Exposure: No - Caffeine Use Caffeine Use: Reports: None - Alcohol Use Days Per Week of Alcohol Use: 0 Number of Drinks Per Day: 5 Total Drinks Per Week: 0 - Recreational Drug Use Recreational Drug Use: No ED ROS GENERAL - Review of Systems Review Of Systems: See Below Constitutional: Reports: Fever, Chills, Fatigue HEENT: Reports: No Symptoms Respiratory: Reports: Shortness of Breath, Cough. Denies: Sputum Cardiovascular: Reports: No Symptoms GI/Abdominal: Reports: No Symptoms : Reports: No Symptoms Musculoskeletal: Reports: No Symptoms Skin: Reports: No Symptoms Neurological: Reports: No Symptoms ED EXAM, GENERAL - Physical Exam Exam: See Below Free Text/Narrative:: General: Female, not in any distress, alert and oriented x3 HEENT: head is atraumatic normocephalic, eyes pupils equal round reactive to light, sclera clear no conjunctivitis appreciated. Ears tympanic membranes clear and manley landmarks and light reflex are present bilaterally canals are clear. Nose no septal deviation, nares are clear, no blood present. Mouth mucosa is moist and pink no erythema or exudate noted in soft palate, tongue is midline uvula is midline, dentition is intact. Neck: Supple no thyromegaly no tracheal deviation. Nodes: Cervical nodes subclavicular nodes nontender no palpable lymphadenopathy noted. Lungs: clear to auscultation bilaterally with symmetrical respirations, no adventitious noise appreciated. CV: Regular rate and rhythm S1 and S2 appreciated no murmurs rubs or gallops noted. Abdomen: Soft, nontender, no palpable masses or organomegaly appreciated, no distention no guarding bowel sounds are present, surgical wounds clean dry and intact, abdominal binder in place. Neuro: Cranial nerves II through XII grossly intact Skin: Warm and dry, intact Extremities: No lower extremity edema appreciated, . Course - Vital Signs Last Recorded V/S: Last Vital Signs Temp 98.0 F 04/08/17 14:49 Pulse 87 04/08/17 14:49 Resp 14 04/08/17 14:49 BP 126/78 04/08/17 14:49 Pulse Ox 98 04/08/17 14:49 - Orders/Labs/Meds Orders: Active Orders 24 hr Category Date Time Status Peripheral IV Care [RC] . DIRECTED Care 04/08/17 15:51 Active Ang Chest [CT] Stat Exams 04/08/17 15:50 Taken Chest 2V [CR] Urgent Exams 04/08/17 15:03 Taken Iopamidol [Isovue-370 (76%)] Med 04/08/17 16:00 Active 100 ml IV . DIRECTED Sodium Chloride 0.9% [Normal Saline] 1,000 ml Med 04/08/17 16:00 Active IV ASDIRECTED Sodium Chloride 0.9% [Normal Saline] 100 ml Med 04/08/17 16:00 Active IV ASDIRECTED Sodium Chloride 0.9% [Saline Flush] Med 04/08/17 15:50 Active 10 ml FLUSH ASDIRECTED PRN Peripheral IV Insertion Adult [OM.PC] Urgent Oth 04/08/17 15:50 Ordered Medication Orders Sodium Chloride (Normal Saline) 1,000 mls @ 500 mls/hr IV ASDIRECTED SUMMER Last Admin: 04/08/17 16:56 Dose: 500 mls/hr Sodium Chloride (Normal Saline) 100 mls @ 4 mls/sec IV ASDIRECTED SUMMER Last Admin: 04/08/17 16:29 Dose: 4 mls/sec Iopamidol (Isovue-370 (76%)) 100 ml IV . DIRECTED SUMMER Last Admin: 04/08/17 16:29 Dose: 100 ml Sodium Chloride (Saline Flush) 10 ml FLUSH ASDIRECTED PRN PRN Reason: Keep Vein Open Last Admin: 04/08/17 16:55 Dose: 10 ml Labs: Laboratory Tests 04/08/17 04/08/17 04/08/17 Range/Units 15:05 15:13 15:13 WBC 4.7 (4.5-11.0) K/uL RBC 4.35 (3.30-5.50) M/uL Hgb 11.9 L (12.0-15.0) g/dL Hct 37.5 (36.0-48.0) % MCV 86 (80-98) fL MCH 27 (27-31) pg MCHC 32 (32-36) % Plt Count 320 (150-400) K/uL Neut % (Auto) 60 (36-66) % Lymph % (Auto) 30 (24-44) % Norman % (Auto) 9 H (2-6) % Eos % (Auto) 1 L (2-4) % Baso % (Auto) 0 (0-1) % D-Dimer, Quantitative 1030 H (0.0-400.0) ng/mL Sodium 140 (140-148) mmol/L Potassium 4.1 (3.6-5.2) mmol/L Chloride 106 (100-108) mmol/L Carbon Dioxide 27 (21-32) mmol/L Anion Gap 6.7 (5.0-14.0) mmol/L BUN 8 (7-18) mg/dL Creatinine 0.8 (0.6-1.0) mg/dL Est Cr Clr Drug Dosing 96.36 mL/min Estimated GFR (MDRD) > 60 (>60) Glucose 91 (74-106) mg/dL Lactic Acid (0.4-2.0) mmol/L Calcium 9.2 (8.5-10.1) mg/dL Total Bilirubin 0.2 (0.2-1.0) mg/dL AST 43 H (15-37) U/L ALT 64 (12-78) U/L Alkaline Phosphatase 123 H (46-116) U/L Total Protein 7.4 (6.4-8.2) g/dL Albumin 3.3 L (3.4-5.0) g/dL Globulin 4.1 H (2.3-3.5) g/dL Albumin/Globulin Ratio 0.8 L (1.2-2.2) Urine Color Urine Appearance Urine pH (4.5-8.0) Ur Specific [place] (1.008-1.030) Urine Protein (NEGATIVE) mg/dL Urine Glucose (UA) (NEGATIVE) mg/dL Urine Ketones (NEGATIVE) mg/dL Urine Occult Blood (NEGATIVE) Urine Nitrite (NEGATIVE) Urine Bilirubin (NEGATIVE) Urine Urobilinogen (NORMAL) mg/dL Ur Leukocyte Esterase (NEGATIVE) Urine RBC (0-5) Urine WBC (0-5) Ur Epithelial Cells Amorphous Sediment Urine Bacteria Urine Mucus 04/08/17 04/08/17 Range/Units 15:13 17:33 WBC (4.5-11.0) K/uL RBC (3.30-5.50) M/uL Hgb (12.0-15.0) g/dL Hct (36.0-48.0) % MCV (80-98) fL MCH (27-31) pg MCHC (32-36) % Plt Count (150-400) K/uL Neut % (Auto) (36-66) % Lymph % (Auto) (24-44) % Norman % (Auto) (2-6) % Eos % (Auto) (2-4) % Baso % (Auto) (0-1) % D-Dimer, Quantitative (0.0-400.0) ng/mL Sodium (140-148) mmol/L Potassium (3.6-5.2) mmol/L Chloride (100-108) mmol/L Carbon Dioxide (21-32) mmol/L Anion Gap (5.0-14.0) mmol/L BUN (7-18) mg/dL Creatinine (0.6-1.0) mg/dL Est Cr Clr Drug Dosing mL/min Estimated GFR (MDRD) (>60) Glucose (74-106) mg/dL Lactic Acid 0.8 (0.4-2.0) mmol/L Calcium (8.5-10.1) mg/dL Total Bilirubin (0.2-1.0) mg/dL AST (15-37) U/L ALT (12-78) U/L Alkaline Phosphatase (46-116) U/L Total Protein (6.4-8.2) g/dL Albumin (3.4-5.0) g/dL Globulin (2.3-3.5) g/dL Albumin/Globulin Ratio (1.2-2.2) Urine Color Yellow Urine Appearance Clear Urine pH 6.0 (4.5-8.0) Ur Specific [place] 1.010 (1.008-1.030) Urine Protein Negative (NEGATIVE) mg/dL Urine Glucose (UA) Normal (NEGATIVE) mg/dL Urine Ketones Negative (NEGATIVE) mg/dL Urine Occult Blood Negative (NEGATIVE) Urine Nitrite Negative (NEGATIVE) Urine Bilirubin Negative (NEGATIVE) Urine Urobilinogen Normal (NORMAL) mg/dL Ur Leukocyte Esterase Negative (NEGATIVE) Urine RBC 0-5 (0-5) Urine WBC 0-5 (0-5) Ur Epithelial Cells Rare Amorphous Sediment Few Urine Bacteria Not seen Urine Mucus Few Meds: Medications Generic Name Dose Route Start Last Admin Trade Name Freq PRN Reason Stop Dose Admin Sodium Chloride 1,000 mls @ 500 mls/hr 04/08/17 16:00 04/08/17 16:56 Normal Saline IV 500 mls/hr ASDIRECTED SUMMER Administration Sodium Chloride 100 mls @ 4 mls/sec 04/08/17 16:00 04/08/17 16:29 Normal Saline IV 4 mls/sec ASDIRECTED SUMMER Administration Iopamidol 100 ml 04/08/17 16:00 04/08/17 16:29 Isovue-370 (76%) IV 100 ml . DIRECTED SUMMER Administration Sodium Chloride 10 ml 04/08/17 15:50 04/08/17 16:55 Saline Flush FLUSH 10 ml ASDIRECTED PRN Administration Keep Vein Open Departure - Departure Time of Disposition: 17:54 Disposition: Home, Self-Care 01 Condition: Good Clinical Impression: Fever Qualifiers: Fever type: unspecified Qualified Code(s): R50.9 - Fever, unspecified - Discharge Information Referrals: Neftaly Donato MD [Primary Care Provider] - Forms: ED Department Discharge Additional Instructions: Use symptomatic care of Tylenol or Motrin as needed, keep follow-up appointments Dr. Donato from general surgery, outpatient will call you for an ultrasound of your thyroid - My Orders Last 24 Hours: My Active Orders 04/08/17 15:03 Chest 2V [CR] Urgent 04/08/17 15:50 Ang Chest [CT] Stat Sodium Chloride 0.9% [Saline Flush] 10 ml FLUSH ASDIRECTED PRN Peripheral IV Insertion Adult [OM.PC] Urgent 04/08/17 15:51 Peripheral IV Care [RC] . DIRECTED 04/08/17 16:00 Iopamidol [Isovue-370 (76%)] 100 ml IV . DIRECTED Sodium Chloride 0.9% [Normal Saline] 1,000 ml IV ASDIRECTED Sodium Chloride 0.9% [Normal Saline] 100 ml IV ASDIRECTED - Assessment/Plan Last 24 Hours: My Active Orders 04/08/17 15:03 Chest 2V [CR] Urgent 04/08/17 15:50 Ang Chest [CT] Stat Sodium Chloride 0.9% [Saline Flush] 10 ml FLUSH ASDIRECTED PRN Peripheral IV Insertion Adult [OM.PC] Urgent 04/08/17 15:51 Peripheral IV Care [RC] . DIRECTED 04/08/17 16:00 Iopamidol [Isovue-370 (76%)] 100 ml IV . DIRECTED Sodium Chloride 0.9% [Normal Saline] 1,000 ml IV ASDIRECTED Sodium Chloride 0.9% [Normal Saline] 100 ml IV ASDIRECTED Plan: Assessment Acuity = acute Site and laterality = fever, ill feeling, again the patient with history of recent surgery Etiology = unclear etiology Manifestations = none Location of injury = Home Lab values = CBC, CMP, urinalysis unremarkable influenza negative CT scan of the chest shows no pulmonary embolism Plan Called discussed case with Dr. Donato recommended symptomatic care keep follow- up appointment with general surgery also notes CT scan did show an asymmetric thyroid I did write an order for ultrasound as an outpatient results to go to Dr. Donato Patient was in agreement with the plan all questions were answered, they were instructed to return to the emergency department or call for worsening symptoms. This note was dictated using [employer] voice recognition software please call with any questions.
[2017-04-08] MEDS ORDERED: Sodium Chloride 0.9% 10 ML Syringe FLUSH PRN (15:50)
[2017-04-08] MEDS ORDERED: Iopamidol 755 Mg/ML 100 ML Bottle IV SCH (16:00)
[2017-04-08] MEDS ORDERED: Sodium Chloride 0.9% 1,000 ML IV SCH (16:00)
[2017-04-08] MEDS ORDERED: Sodium Chloride 0.9% 100 ML IV SCH (16:00)
--- NOTE | 2017-04-10 09:16 | CR ---
Chest 2V INDICATION: sob, fever COMPARISON: None FINDINGS: Two views. Heart size normal. Lungs are clear. No infiltrate or pleural effusion. No sig ns of pulmonary edema. IMPRESSION: Negative chest.
== END 2017-04-08 18:43 | disposition home or self-care (01) ==
LOC: JP.ED 14:33
DX: R50.9 Fever, unspecified (principal); I10 Essential (primary) hypertension; Z88.8 Allergy status to other drugs, medicaments and biological substances; Z91.09 Other allergy status, other than to drugs and biological substances; Z79.899 Other long term (current) drug therapy
CPT/HCPCS: 36415; 71020; 71275; 80053; 81001; 83605; 85025; 85379; 87804; 96360; 96361; 99284; J7030; J7040; J7050; Q9967

== ENCOUNTER 2017-05-09 07:02 | Inpatient (IN) | payer MEDICAID ==
[2017-05-09] MEDS ORDERED: Acetaminophen 500 MG Tab PO ONE (07:30)
[2017-05-09] MEDS: Dextrose 5%-Lactated Ringers 1,000 ML IV SCH ×3 (07:57→23:40)
[2017-05-09] MEDS ORDERED: ceFAZolin 2 GM in Premix Bag 1 BAG IV ONE (09:00)
[2017-05-09] MEDS ORDERED: Albuterol/Ipratropium 3.0-0.5 MG/3 ML Neb Soln ONE (09:43)
[2017-05-09] MEDS ORDERED: fentaNYL 250 MCG/5 ML SDV ONE ×2 (09:49→10:38)
[2017-05-09] MEDS ORDERED: Propofol 200 MG/20 ML SDV ONE (09:50)
[2017-05-09] MEDS ORDERED: Ondansetron 4 MG/2 ML SDV ONE (09:50)
[2017-05-09] MEDS ORDERED: Dexamethasone 4 MG/ML SDV ONE (09:50)
[2017-05-09] MEDS ORDERED: Rocuronium 50 MG/5 ML Vial ONE (09:50)
[2017-05-09] MEDS ORDERED: Neostigmine Methylsulfate 1 MG/ML 5 ML Syringe ONE (09:50)
[2017-05-09] MEDS ORDERED: Glycopyrrolate 0.2 MG/ML 5 ML MDV ONE (09:50)
[2017-05-09] MEDS ORDERED: Albuterol/Ipratropium 3.0-0.5 MG/3 ML Neb Soln NEB ONE (10:00)
[2017-05-09] MEDS ORDERED: Lactated Ringers 1,000 ML ONE (11:42)
[2017-05-09] MEDS: HYDROmorphone/Normal Saline 15 MG/30 ML PCA IV PRN (12:08)
[2017-05-09] MEDS ORDERED: Naloxone 0.4 MG/ML SDV IV PRN (13:31)
[2017-05-09] MEDS ORDERED: Ondansetron 4 MG/2 ML SDV IVPUSH PRN (14:00)
[2017-05-09] MEDS: ceFAZolin 1 GM in Premix Bag 1 BAG IV SCH ×2 (15:57→23:40)
[2017-05-09] MEDS ORDERED: Labetalol 100 MG Tab PO SCH (21:00)
[2017-05-10] MEDS: HYDROmorphone/Normal Saline 15 MG/30 ML PCA IV PRN (03:33)
[2017-05-10] MEDS: Pantoprazole 40 MG Tab.CR PO SCH (07:44)
[2017-05-10] MEDS: ceFAZolin 1 GM in Premix Bag 1 BAG IV SCH (07:48)
[2017-05-10] MEDS: Dextrose 5%-Lactated Ringers 1,000 ML IV SCH ×2 (07:48→19:25)
[2017-05-10] MEDS: LORazepam 0.5 MG Tab PO PRN ×2 (08:03→21:21)
--- NOTE | 2017-05-10 08:47 | PN ---
DATE OF SERVICE: 05/10/2017 SUBJECTIVE: Yane is postop day #1 following a total thyroidectomy. She has had some numbness and tingling in her fingertips and her feet. Pain has been controlled with the EMOTIONALLY IMPAIRED TEACHER. She has been up ambulating. Oral intake was 480. Urine output was 2100. LUCIANO drain put out a pink serosanguineous drainage of 65 mL. REVIEW OF SYSTEMS: Remainder of review of systems negative for any pertinent positives or negatives. LABORATORY DATA: Glucose was 117, calcium was 7.1, magnesium is 1.4. OBJECTIVE: GENERAL: Yane Cabral is a 32-year-old female. She is alert and orientated, sitting up in bed. VITAL SIGNS: TPR is 98.4, 63, 16; blood pressure 106/60. HEENT: Negative. NECK: Dressing was removed. Steri-Strips intact. No hematoma was noted. LUCIANO drain as stated above. HEART: Regular rate and rhythm. LUNGS: Clear. ASSESSMENT: Total thyroidectomy, 05/09/2017. PLAN: 1. Tums take 4 p.o. q.2 hours p.r.n. numbness and tingling. 2. Magnesium 2 g IV q.6 hours x72 hours. 3. Discontinue series of magnesium lab levels. 4. Step-4 gastric bypass diet, double portions. 5. Dressing off. 6. Shower. 7. Discontinue EMOTIONALLY IMPAIRED TEACHER and continuous pulse ox. 8. Percocet 5/325 mg 1 to 2 every 4 hours p.r.n. pain. 9. We will evaluate p.r.n. or in a.m. Salud Pop PA-C /[id number]
[2017-05-10] MEDS: Magnesium Sulfate/Water 2 GM in Premix Bag 1 BAG IV SCH ×3 (09:01→21:22)
[2017-05-10] MEDS: Acetaminophen/oxyCODONE 325-5 MG Tab PO PRN ×4 (09:08→21:21)
[2017-05-10] MEDS ORDERED: Benzocaine/Cetylpyridinium/Menthol Lozenge MUCMEM SCH (18:45)
[2017-05-10] MEDS: Cyclobenzaprine 10 MG Tab PO PRN (19:25)
[2017-05-11] MEDS: Acetaminophen/oxyCODONE 325-5 MG Tab PO PRN ×6 (01:13→21:22)
[2017-05-11] MEDS: Calcium Carbonate 500 MG Tab.Chew PO PRN ×6 (07:00→17:36)
[2017-05-11] MEDS: Pantoprazole 40 MG Tab.CR PO SCH (08:39)
--- NOTE | 2017-05-11 10:22 | PN ---
DATE OF SERVICE: 05/11/2017 SUBJECTIVE: Yane is postop day 2. She states her pain is controlled, but she is having more neck stiffness, taking some Flexeril. Calcium this morning was 6.8. Her magnesium is being replaced. She is asymptomatic as far as numbness and tingling, and the LUCIANO drain put out 35 mL of a pink serosanguineous drainage. REVIEW OF SYSTEMS: The remainder of review of systems negative for any pertinent positives and negatives. OBJECTIVE: GENERAL: Yane Cabral is a pleasant 32-year-old female. Alert and orientated. VITAL SIGNS: TPR is 97.3, 79, 18; blood pressure 130/77. HEENT: Negative. NECK: Supple. Thyroidectomy incision. Steri-Strips remain on. Incision looks good. LUCIANO drain intact. HEART: Regular rate and rhythm. LUNGS: Clear. EXTREMITIES: Negative. ASSESSMENT: Total thyroidectomy, 05/09/2017. PLAN: To continue Tums, 4 Tums q.2 hours, and will be discharged. Check labs in a.m.; CBC, CMP, and phosphorus which have already been ordered, and when discharged to home, will go home with magnesium oxide 400 mg b.i.d. We will evaluate p.r.n. or in a.m. Salud Pop PA-C /[id number]
[2017-05-11] MEDS: Magnesium Oxide 400 MG Tab PO SCH (21:18)
[2017-05-11] MEDS: LORazepam 0.5 MG Tab PO PRN (21:22)
[2017-05-11] MEDS ORDERED: DEXTROSE 5% IV ONE ×2 (22:30)
[2017-05-11] MEDS ORDERED: CALCIUM GLUCONATE IV ONE ×2 (22:30)
[2017-05-11] MEDS ORDERED: WATER IV ONE ×2 (22:30)
[2017-05-12] MEDS: Acetaminophen/oxyCODONE 325-5 MG Tab PO PRN ×6 (01:34→22:36)
[2017-05-12] MEDS: Pantoprazole 40 MG Tab.CR PO SCH (07:24)
[2017-05-12] MEDS: Magnesium Oxide 400 MG Tab PO SCH ×2 (08:31→21:50)
[2017-05-12] MEDS: Calcium Carbonate 500 MG Tab.Chew PO SCH ×9 (08:31→23:13)
[2017-05-12] MEDS: Magnesium Sulfate/Water 2 GM in Premix Bag 1 BAG IV SCH ×3 (08:39→19:23)
[2017-05-12] MEDS: Cyclobenzaprine 10 MG Tab PO PRN (08:39)
[2017-05-12] MEDS ORDERED: Cholecalciferol (Vitamin D3) 1,000 Unit Tab PO SCH (09:00)
[2017-05-12] MEDS: Aluminum Hydroxide/Magnesium Hydroxide/Simethicone Susp 30 ML Cup PO SCH ×3 (09:35→22:37)
--- NOTE | 2017-05-12 11:02 | PN ---
DATE OF SERVICE: 05/12/2017 SUBJECTIVE: Yane had episode yesterday where her hands cramped and locked. She had a lot of numbness and tingling around her perioral area, as well as her hands and feet. Labs were checked and calcium was 7. Calcium went down to 6.1 at 0400 hours and was rechecked at 2000 hours and was 6.1 and this morning is 8.1. She received IV calcium and continues with the Tums, 4 Tums q.2 hours. She was taking in p.r.n. This will be changed to scheduled. She states this morning she is feeling better. Pain is controlled. REVIEW OF SYSTEMS: Remainder of review of systems negative for any pertinent positives and negatives. OBJECTIVE: GENERAL: Yane Cabral is a 32-year-old female. VITAL SIGNS: TPR is 97.8, 68, 16, blood pressure 124/69. HEENT: Negative. NECK: Supple. HEART: Regular rate and rhythm. LUNGS: Clear. ABDOMEN: Soft, nontender. EXTREMITIES: Without peripheral edema. SKIN: Thyroidectomy, Steri-Strips intact. LUCIANO drain has been draining a pink serosanguineous drainage of 35 mL over the past 24 hours. ASSESSMENT: Total thyroidectomy and hypokalemia. PLAN: 1. Magnesium 2 g IV q.6 hours x72 hours. Vitamin D 50,000 international units daily. Schedule 4 Tums q.2 hours. 2. Discontinue LUCIANO drain and continue with serum calcium q.6 hours. 3. We will evaluate p.r.n. or in a.m. Salud Pop PA-C /[id number]
[2017-05-12] MEDS: Ergocalciferol (Vitamin D2) 50,000 Unit Cap PO SCH (16:01)
[2017-05-12] MEDS ORDERED: WATER IV ONE ×2 (22:30)
[2017-05-12] MEDS ORDERED: CALCIUM GLUCONATE IV ONE ×2 (22:30)
[2017-05-12] MEDS ORDERED: DEXTROSE 5% IV ONE ×2 (22:30)
[2017-05-13] MEDS: Acetaminophen/oxyCODONE 325-5 MG Tab PO PRN ×6 (02:38→23:44)
[2017-05-13] MEDS: Calcium Carbonate 500 MG Tab.Chew PO SCH ×12 (02:40→23:47)
[2017-05-13] MEDS: Magnesium Sulfate/Water 2 GM in Premix Bag 1 BAG IV SCH ×4 (02:41→19:53)
[2017-05-13] MEDS: Aluminum Hydroxide/Magnesium Hydroxide/Simethicone Susp 30 ML Cup PO SCH ×4 (04:26→21:43)
[2017-05-13] MEDS: Pantoprazole 40 MG Tab.CR PO SCH (07:54)
[2017-05-13] MEDS ORDERED: Calcium Carbonate 500 MG Tab.Chew PO PRN (08:20)
[2017-05-13] MEDS: Ergocalciferol (Vitamin D2) 50,000 Unit Cap PO SCH (08:49)
[2017-05-13] MEDS: Magnesium Oxide 400 MG Tab PO SCH ×4 (08:49→21:42)
--- NOTE | 2017-05-13 09:34 | PN ---
DATE OF SERVICE: 05/13/2017 SUBJECTIVE: Yane had a calcium level rechecked at 2000 hours and it was 6.9. She was asymptomatic. She was given IV calcium per protocol this morning. Right at the end of her calcium, was her time to get her calcium rechecked, and it was 8.6. Phosphorus is 4.6. Yane states her pain is controlled as long as she takes her Percocet. Takes 2 Percocet every 4 hours. Appetite has been good. She continues to be asymptomatic with any paresthesias around her perioral area and no numbness or tingling in her extremities. REVIEW OF SYSTEMS: Remainder of review of systems negative for any pertinent positives and negatives. OBJECTIVE: GENERAL: Yane Cabral is a pleasant 32-year-old female. She is alert and oriented. SKIN: Warm and dry. VITAL SIGNS: TPR 97.5, 77, 18. Blood pressure 132/74. HEENT: Negative. NECK: Supple. HEART: Regular rate and rhythm. LUNGS: Clear. ASSESSMENT: Incision on neck is Steri-Stripped and they are intact. PLAN: 1. She is to continue to have her calcium checked every 6 hours. 2. Magnesium oxide 400 mg q.i.d. prescribed. 3. All her vitamins and supplements were resumed. 4. We will check lab work in a.m. 5. We will evaluate p.r.n. or in a.m. Salud Pop PA-C /[id number]
[2017-05-13] MEDS: Calcium Carbonate/Vitamin D3 1500 MG-400 Units Tab PO SCH ×2 (10:09→21:42)
[2017-05-13] MEDS: Cyanocobalamin (Vitamin B12) 1,000 MCG Tab SL SCH (10:09)
[2017-05-13] MEDS: Ferrous Fumarate/Vitamin C 200-125 MG Tab PO SCH (10:09)
[2017-05-13] MEDS: Folic Acid 1 MG Tab PO SCH (10:10)
[2017-05-14] MEDS: Magnesium Sulfate/Water 2 GM in Premix Bag 1 BAG IV SCH ×2 (02:35→08:16)
[2017-05-14] MEDS: Calcium Carbonate 500 MG Tab.Chew PO SCH ×6 (02:36→11:35)
[2017-05-14] MEDS: Acetaminophen/oxyCODONE 325-5 MG Tab PO PRN ×2 (03:47→07:48)
[2017-05-14] MEDS: Aluminum Hydroxide/Magnesium Hydroxide/Simethicone Susp 30 ML Cup PO SCH ×2 (03:49→09:36)
[2017-05-14] MEDS: Magnesium Oxide 400 MG Tab PO SCH ×2 (06:03→09:36)
[2017-05-14] MEDS: Pantoprazole 40 MG Tab.CR PO SCH (07:19)
[2017-05-14] MEDS: Calcium Carbonate/Vitamin D3 1500 MG-400 Units Tab PO SCH (08:19)
[2017-05-14] MEDS: Ergocalciferol (Vitamin D2) 50,000 Unit Cap PO SCH (08:19)
[2017-05-14] MEDS: Folic Acid 1 MG Tab PO SCH (08:19)
[2017-05-14] MEDS: Cyanocobalamin (Vitamin B12) 1,000 MCG Tab SL SCH (08:19)
[2017-05-14] MEDS: Ferrous Fumarate/Vitamin C 200-125 MG Tab PO SCH (08:19)
--- NOTE | 2017-05-14 11:02 | DISCH ---
ADMISSION DIAGNOSES: Thyroid mass, status post duodenal switch, unspecified surgical malabsorption, B12 deficiency, bipolar one disorder, essential hypertension. 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 Date of operation, 05/09/2017. SURGEON: Neftaly Donato MD. HISTORY: Yane Cabral was noted to have a thyroid mass on a lung CT which was done in the ER. She had further workup including an ultrasound-guided biopsy. After preoperative evaluation and discussion of possible risks and possible complications, she wished to proceed with surgical procedure. HOSPITAL COURSE: Yane had her surgery on 05/09/2017. She had no operative complications. On postop day 1, she was started on oral pain medication, a step-4 gastric bypass diet. Supplemented 2 g of magnesium IV every 6 hours and she was to take Tums 4 tablets every 2 hours at bedside. On postop day 2, she did have some numbness and tingling. Calcium was 6.8, and she was given IV calcium when her calcium level went down to 6.1. She was scheduled getting 4 Tums every 4 hours and continued with the magnesium and started on vitamin D 50,000 international units daily. On postop day 3, she did not become symptomatic, but her calcium level was 6.9, and she was given IV calcium per protocol. Phosphorus was 4.6. On postop day 5, calcium was 7.3, phosphorus was 4.1. Yane's pain was controlled. Her levels with her calcium were maintained with calcium supplement. She also received vitamin D 50,000 daily and magnesium. She was ready. Her activity was good. Vital signs were stable. She was asymptomatic and requested to be discharged to home. PHYSICAL EXAMINATION: GENERAL: Yane Cabral is a 32-year-old female. VITAL SIGNS: Height is 5 feet 6 inches. Weight is 146 pounds. TPR is 96.4, 89, 18, blood pressure 129/63. HEENT: Negative. NECK: Supple. There is very minimal swelling above the thyroidectomy incision. Steri- Strips are on full range of motion. No difficulty swallowing. Voice is normal. HEART: Regular rate and rhythm. LUNGS: Clear. ABDOMEN: Negative. EXTREMITIES: Without peripheral edema. DISPOSITION: Discharged to home. CONDITION: Stable and improving. FOLLOWUP APPOINTMENT: With Neftaly Donato MD on Monday05/17/2017 at 10 a.m. She is to arrive to the clinic at 0900 hours to check BMP, magnesium, and phosphorus in [facility]. HOME MEDICATIONS: Percocet 5/325 mg 1 to 2 tabs every 4 hours p.r.n. pain #40, Tums 4 tablets every 2 hours scheduled #50 with 11 refills, vitamin D 50,000 international units p.o. daily #14, magnesium oxide 400 mg p.o. q.i.d. for 11 days and #100. She is to resume her home medication; zinc 1 tablet daily, vitamin B1 100 mg daily, omeprazole 40 mg daily, multivitamin 1 daily, Lorazepam 0.5 mg b.i.d. p.r.n., Vitron-C 1 daily, folic acid 2 tablets daily, vitamin B12 1000 mcg sublingual daily, calcium citrate with vitamin D 400/500 mg b.i.d. DISCHARGE DIET: Step-4 gastric bypass diet which is her usual diet as tolerated. Drink 8 to 10 glasses of water a day. ACTIVITY: As tolerated. No lifting greater than 10 pounds for 6 weeks. Driving, do not drive on pain medication. Shower/bathing, may shower. Keep operative site clean and dry. Notify provider if any fever, increased swelling, redness, nausea, or vomiting. Special instruction: Follow up if any numbness or tingling in face, hands, or feet.
[2017-05-14 11:21] VITALS: BP 110/56
--- NOTE | 2017-05-15 15:42 | OR ---
DATE OF PROCEDURE: 05/09/2017 PREOPERATIVE DIAGNOSIS: Large mass involving the right thyroid lobe with fine-needle aspiration suggestive of Hurthle cell neoplasm. POSTOPERATIVE DIAGNOSIS: Large mass involving the right thyroid lobe with fine-needle aspiration suggestive of Hurthle cell neoplasm. OPERATIVE PROCEDURE: Total thyroidectomy including excision of right substernal goiter ([id number]). ANESTHESIA: General. INDICATIONS FOR PROCEDURE: This is a 32-year-old female presenting with significantly evident goiter on the right thyroid lobe measuring in excess of 4 cm. A fine-needle aspiration was suggestive of a Hurthle cell neoplasm. Given this, after discussion of treatment options, the plan will be to proceed with a total thyroidectomy. If the dissection is difficult with regard to the laryngeal nerves or parathyroid glands on the initial site of dissection, a subtotal thyroidectomy on the left side would be completed as opposed to total thyroidectomy. Potential risks including bleeding, infection, injury to the recurrent laryngeal nerve, possible transient or long-term hypoparathyroidism with requiring active vitamin D and calcium intake were gone over and the patient wishes to proceed. DETAILS OF PROCEDURE: The patient was taken to the operating room. After general endotracheal anesthesia was induced, was positioned with a roll underneath her shoulders extending the neck. The upper chest and neck areas were then prepped and draped, a standard collar incision was made and carried down through the skin and subcutaneous tissue and through the platysma layers, subplatysmal layers were then raised superiorly and inferiorly, and the midline fascia was then divided. Attention was then taken to the right thyroid lobe. Strap muscles were retracted off this with a combination of blunt and cautery dissection. The patient had a substantial component of the left thyroid lobe and extended goiter going into the substernal location. This was initially promptly mobilized upward, at which time the inferior thyroid vein was divided with Harmonic scalpel. This then allowed medial mobilization of the goiter. The middle thyroid vein was then simply divided with Harmonic scalpel. Attention was then taken to the upper pole, which was dissected free and the upper pole vessels encircled, and these were likewise divided with the Harmonic scalpel. At that point, the attachments to the right thyroid lobe were progressively dissected off, more or less flush with the surface of the thyroid, dividing the inferior thyroid vessels at the branch level, immediately adjacent to the thyroid capsule, thus reflecting the parathyroid tissue off as the dissection progressed. At that point, the isthmus was divided just to the left of the midline with Harmonic Scalpel as well. Dissection then continued from that point rightward up until the area around the ligament of Duran was encountered at its medial extent. The right thyroid lobe was then dissected away from the tracheal attachments from an inferior to superior direction as one approached the area of the ligament of Duran. The patient was noted to have a quite marked inflammatory response in general with this thyroid lobe and it was felt that it would be best to leave a very thin rim of thyroid tissue be left over the course of the recurrent laryngeal nerve and that was then divided with Harmonic scalpel and the right thyroid lobe and a specimen was then delivered from the field. 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 Attention was then taken to the left side. This side was not significantly enlarged but it was likewise affected by a generalized intense inflammation, more or less identical dissection was accomplished other than there was no substernal component on this side. As one approached the recurrent laryngeal nerve on this side, likewise it was felt best to leave a very thin rim of the thyroid tissue so as to avoid dissection of the recurrent nerve directly from the thyroid tissue given the intense inflammatory response found. The left thyroid lobe was then delivered from the field. At this point, the area of dissection was inspected. The recurrent laryngeal nerves were confirmed to be intact with what appeared to be the areas of the parathyroid tissue on each side and reflected off flush with the thyroid gland and what appeared to be likely be satisfactory in terms of remaining blood supply. The area of dissection was then inspected further with no bleeding noted. A 7-Georgian Tao-Davis drain was then placed through a stab wound on the right side of the neck and draped across the area of dissection. The strap muscles were then approximated with a 3-0 Vicryl stitch, the platysmal muscle with 4-0 Vicryl stitch, and the skin with a 4-0 Vicryl subcuticular stitch. Dressing was applied. The patient was taken to the recovery room in satisfactory condition. There were no evident complications. Neftaly Donato MD /[id number]
== END 2017-05-14 13:30 | disposition home or self-care (01) | DRG 626 ==
LOC: JP.MS 07:02 → JP.SDS 07:03 → EDSTATUS 10:00 → JP.MS 13:15
PROVIDERS: ADMIT Surgery; ATTEND Surgery
PROC: 0GTG0ZZ Resection of Left Thyroid Gland Lobe, Open Approach (ICD-10-PCS; principal; 2017-05-09)
PROC: 0GTJ0ZZ Resection of Thyroid Gland Isthmus, Open Approach (ICD-10-PCS; 2017-05-09)
DX: D34 Benign neoplasm of thyroid gland (principal); K91.2 Postsurgical malabsorption, not elsewhere classified; E04.9 Nontoxic goiter, unspecified; E87.6 Hypokalemia; E83.51 Hypocalcemia; Z98.84 Bariatric surgery status; E53.8 Deficiency of other specified B group vitamins; I10 Essential (primary) hypertension; F31.9 Bipolar disorder, unspecified
CPT/HCPCS: 36415; 80048; 80053; 82310; 83735; 84100; 85027; 88307; 94762; A9270-GY; J0610; J0690; J1100; J1170; J2405; J2704; J2710; J3010; J3475; J7042; J7060; J7120; J7620

== ENCOUNTER 2017-05-20 18:10 | Emergency (ER) | payer MEDICAID ==
[2017-05-20 18:38] VITALS: BP 146/96
--- NOTE | 2017-05-20 18:49 | EDM.PDOC ---
ED HPI GENERAL MEDICAL PROBLEM - General Chief Complaint: Respiratory Problem Stated Complaint: TROUBLE BREATHING Time Seen by Provider: 05/20/17 18:44 Source of Information: Reports: Patient History Limitations: Reports: No Limitations - History of Present Illness INITIAL COMMENTS - FREE TEXT/NARRATIVE: 32-year-old female who had a thyroid surgery 2 weeks ago feels she's having difficulty breathing and she is concerned there may be some swelling or upper airway obstruction. She has little symptoms when at rest but with activity she feels like she has to labor to breathe. She does have anxiety. Onset: Unknown/Unsure Location: Reports: Neck Associated Symptoms: Reports: Other (Anxiety.) - Related Data Allergies Allergy/AdvReac Type Severity Reaction Status Date / Time iron [From Venofer] Allergy Hives Verified 05/09/17 07:29 seasonal Allergy Cannot Uncoded 05/09/17 07:29 Remember Home Meds: Home Meds Cyanocobalamin (Vitamin B-12) [Vitamin B-12] 1,000 mcg SL DAILY #100 tab.subl [Rx] Calcium Citrate/Vitamin D3 [Calcium Citrate + D] 400 - 500 mg PO BID 11/24/15 [ History] LORazepam 0.5 mg PO BID PRN 11/24/15 [History] Omeprazole 40 mg PO DAILY 11/24/15 [History] Thiamine [Vitamin B-1] 100 mg PO DAILY 03/17/16 [History] Iron,Carbonyl/Ascorbic Acid [Vitron-C Tablet] 1 each PO DAILY #30 tablet.dr [Rx] Calcium Carbonate [Tums] 500 mg PO ASDIRECTED PRN tab.chew 04/03/17 [Rx] Folic Acid 2 tab PO DAILY 04/24/17 [History] Multivitamin [Kid's Vitamins Complete] 1 each PO DAILY 04/24/17 [History] Zinc 1 tab PO DAILY 04/24/17 [History] Calcium Carbonate [Tums] 2,000 mg PO Q2H #500 tab.chew 05/14/17 [Rx] Ergocalciferol (Vitamin D2) [Vitamin D2] 50,000 units PO DAILY #14 cap 05/14/17 [Rx] Levothyroxine Sodium [Synthroid] 1 tab PO DAILY 05/20/17 [History] Magnesium Oxide 400 mg PO DAILY 05/20/17 [History] Past Medical History HEENT History: Reports: Allergic Rhinitis, Impaired Vision Cardiovascular History: Reports: Hypertension Respiratory History: Reports: None Gastrointestinal History: Reports: GERD Genitourinary History: Reports: None VENEREAL DISEASE CONTROL HEAD History: Reports: , Spontaneous Musculoskeletal History: Reports: Fracture Neurological History: Reports: Concussion, Head Trauma Psychiatric History: Reports: Anxiety, Depression, PTSD Endocrine/Metabolic History: Reports: Diabetes, Gestational Hematologic History: Reports: B12 Deficiency, Iron Deficiency Immunologic History: Reports: None Oncologic (Cancer) History: Reports: None Dermatologic History: Reports: None - Infectious Disease History Infectious Disease History: Reports: Chicken Pox - Past Surgical History HEENT Surgical History: Reports: None Respiratory Surgical History: Reports: None GI Surgical History: Reports: Bariatric Procedure, Hernia, Abdominal, Hernia Repair/Other Female Surgical History: Reports: Section, D&C Musculoskeletal Surgical History: Reports: None Social & Family History - Family History Family Medical History: Noncontributory HEENT: Reports: Hearing Impairment, Impaired Vision, Otitis Media, Sinusitis Cardiac: Reports: Bypass, CAD, [place] Respiratory: Reports: None GI: Reports: None : Reports: None OBGYN: Reports: None Musculoskeletal: Reports: None Neurological: Reports: Alzheimers Disease, Dementia Psychiatric: Reports: Depression Endocrine/Metabolic: Reports: Diabetes, type II Hematologic: Reports: None Immunologic: Reports: None Dermatologic: Reports: None Oncologic: Reports: None - Tobacco Use Smoking Status *Q: Former Smoker Years of Tobacco use: 7 Packs/Tins Daily: 0.5 Used Tobacco, but Quit: Yes Month Tobacco Last Used: [employer] Hand Smoke Exposure: No - Caffeine Use Caffeine Use: Reports: Coffee - Alcohol Use Days Per Week of Alcohol Use: 0 Number of Drinks Per Day: 5 Total Drinks Per Week: 0 - Recreational Drug Use Recreational Drug Use: No ED ROS GENERAL - Review of Systems Review Of Systems: See Below Constitutional: Denies: Fever, Chills Respiratory: Reports: Shortness of Breath. Denies: Cough Cardiovascular: Denies: Chest Pain GI/Abdominal: Denies: Nausea, Vomiting Skin: Reports: No Symptoms Neurological: Denies: Headache Psychiatric: Reports: Anxiety ED EXAM, GENERAL - Physical Exam Exam: See Below Exam Limited By: No Limitations General Appearance: Alert, No Apparent Distress Neck: Other (Surgical incision looks excellent, there is a small amount of posterior swelling but no redness or inflammation.) Respiratory/Chest: No Respiratory Distress, Lungs Clear Course - Vital Signs Last Recorded V/S: Last Vital Signs Temp 96 F 05/20/17 18:39 Pulse 98 05/20/17 18:39 Resp 16 05/20/17 18:39 BP 146/96 H 05/20/17 18:39 Pulse Ox 100 05/20/17 18:39 - Re-Assessments/Exams Free Text/Narrative Re-Assessment/Exam: 05/20/17 18:58 Dr. Donato was in house, he saw the patient on a quick curbside exam and felt the patient was doing well postoperatively. Patient was reassured. Departure - Departure Time of Disposition: 19:09 Disposition: Home, Self-Care 01 Condition: Good Clinical Impression: Shortness of breath - Discharge Information Instructions: Shortness of Breath, [id number] Referrals: Jennifer Dunham CNM [Primary Care Provider] - Forms: ED Department Discharge Care Plan Goals: Continue your current medications and increase activity as tolerated. Return if worsening or concerns.
== END 2017-05-20 19:09 | disposition home or self-care (01) ==
LOC: JP.ED 18:10
DX: R06.02 Shortness of breath (principal); I10 Essential (primary) hypertension; K21.9 Gastro-esophageal reflux disease without esophagitis; Z87.891 Personal history of nicotine dependence; Z79.899 Other long term (current) drug therapy
CPT/HCPCS: 99285

== ENCOUNTER 2017-07-10 12:05 | Emergency (ER) | payer MEDICAID ==
[2017-07-10 12:28] VITALS: BP 115/82
[2017-07-10] MEDS ORDERED: Lidocaine 2% Viscous Solution 15 ML Cup PO ONE (13:14)
--- NOTE | 2017-07-10 13:46 | EDM.PDOC ---
ED HPI GENERAL MEDICAL PROBLEM - General Chief Complaint: Gastrointestinal Problem Stated Complaint: PAINFUL HEMMORHOIDS Time Seen by Provider: 07/10/17 12:45 Source of Information: Reports: Patient History Limitations: Reports: No Limitations - History of Present Illness INITIAL COMMENTS - FREE TEXT/NARRATIVE: 32-year-old female who's been struggling with hemorrhoids for the last 2 weeks. She's tried oral pain control, topical hemorrhoid medication and nothing seems to be helping. She called Dr. Donato to make an appointment and the clinic sent her into the emergency room. She has intermittent bleeding from the hemorrhoid. Onset: Unknown/Unsure Quality: Reports: Sharp, Stabbing Severity: Moderate Worsens with: Reports: Other (Bowel movements) - Related Data Allergies Allergy/AdvReac Type Severity Reaction Status Date / Time iron [From Venofer] Allergy Hives Verified 07/10/17 12:39 seasonal Allergy Cannot Uncoded 07/10/17 12:39 Remember Home Meds: Home Meds Cyanocobalamin (Vitamin B-12) [Vitamin B-12] 1,000 mcg SL DAILY #100 tab.subl [Rx] Calcium Citrate/Vitamin D3 [Calcium Citrate + D] 400 - 500 mg PO BID 11/24/15 [ History] LORazepam 0.5 mg PO BID PRN 11/24/15 [History] Omeprazole 40 mg PO DAILY 11/24/15 [History] Thiamine [Vitamin B-1] 100 mg PO DAILY 03/17/16 [History] Iron,Carbonyl/Ascorbic Acid [Vitron-C Tablet] 1 each PO DAILY #30 tablet. [Rx] Calcium Carbonate [Tums] 500 mg PO ASDIRECTED PRN tab.chew 04/03/17 [Rx] Folic Acid 2 tab PO DAILY 04/24/17 [History] Multivitamin [Kid's Vitamins Complete] 1 each PO DAILY 04/24/17 [History] Zinc 1 tab PO DAILY 04/24/17 [History] Calcium Carbonate [Tums] 2,000 mg PO Q2H #500 tab.chew 05/14/17 [Rx] Ergocalciferol (Vitamin D2) [Vitamin D2] 50,000 units PO DAILY #14 cap 05/14/17 [Rx] Levothyroxine Sodium [Synthroid] 1 tab PO DAILY 05/20/17 [History] Magnesium Oxide 400 mg PO DAILY 05/20/17 [History] Past Medical History HEENT History: Reports: Allergic Rhinitis, Impaired Vision Cardiovascular History: Reports: Hypertension Respiratory History: Reports: None Gastrointestinal History: Reports: GERD Genitourinary History: Reports: None 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: , Spontaneous Musculoskeletal History: Reports: Fracture Neurological History: Reports: Concussion, Head Trauma Psychiatric History: Reports: Anxiety, Depression, PTSD Endocrine/Metabolic History: Reports: Diabetes, Gestational Hematologic History: Reports: B12 Deficiency, Iron Deficiency Immunologic History: Reports: None Oncologic (Cancer) History: Reports: None Dermatologic History: Reports: None - Infectious Disease History Infectious Disease History: Reports: Chicken Pox - Past Surgical History HEENT Surgical History: Reports: None GI Surgical History: Reports: Bariatric Procedure, Hernia, Abdominal, Hernia Repair/Other Female Surgical History: Reports: Section, D&C Musculoskeletal Surgical History: Reports: None Social & Family History - Family History Family Medical History: Noncontributory HEENT: Reports: Hearing Impairment, Impaired Vision, Otitis Media, Sinusitis Cardiac: Reports: Bypass, CAD, [place] Respiratory: Reports: None GI: Reports: None : Reports: None OBGYN: Reports: None Musculoskeletal: Reports: None Neurological: Reports: Alzheimers Disease, Dementia Psychiatric: Reports: Depression Endocrine/Metabolic: Reports: Diabetes, type II Hematologic: Reports: None Immunologic: Reports: None Dermatologic: Reports: None Oncologic: Reports: None - Tobacco Use Smoking Status *Q: Unknown Ever Smoked Years of Tobacco use: 7 Packs/Tins Daily: 0.5 Used Tobacco, but Quit: Yes Month Tobacco Last Used: [employer] Second Hand Smoke Exposure: No - Caffeine Use Caffeine Use: Reports: Coffee - Alcohol Use Days Per Week of Alcohol Use: 0 Number of Drinks Per Day: 5 Total Drinks Per Week: 0 - Recreational Drug Use Recreational Drug Use: No ED ROS GENERAL - Review of Systems Review Of Systems: See Below Constitutional: Denies: Fever, Chills Respiratory: Denies: Shortness of Breath Cardiovascular: Denies: Chest Pain GI/Abdominal: Denies: Abdominal Pain, Nausea, Vomiting : Reports: No Symptoms Skin: Reports: No Symptoms Neurological: Denies: Headache ED EXAM, GI/ABD - Physical Exam Exam: See Below Exam Limited By: No Limitations General Appearance: Alert, No Apparent Distress (Looks uncomfortable but not distressed) Eyes: Bilateral: Normal Appearance Respiratory/Chest: No Respiratory Distress, Lungs Clear GI/Abdominal Exam: Soft Rectal (Female) Exam: Hemorrhoids (Patient has a moderate size edematous and thrombosed hemorrhoid on the right perianal area. There is some digital tenderness rectally.) Course - Vital Signs Last Recorded V/S: Last Vital Signs Temp 97.7 F 07/10/17 12:42 Pulse 123 H 07/10/17 12:42 Resp 16 07/10/17 12:42 BP 115/82 07/10/17 12:42 Pulse Ox 100 07/10/17 12:42 - Orders/Labs/Meds Meds: Medications Discontinued Medications Generic Name Dose Route Start Last Admin Trade Name Tri PRN Reason Stop Dose Admin Lidocaine HCl 5 ml 07/10/17 13:14 07/10/17 13:42 Xylocaine-Mpf 1% INJECT 07/10/17 13:15 5 ml ONETIME ONE Administration Lidocaine HCl 15 ml 07/10/17 13:14 07/10/17 13:42 Xylocaine 2% Viscous PO 07/10/17 13:15 15 ml ONETIME ONE Administration - Re-Assessments/Exams Free Text/Narrative Re-Assessment/Exam: 07/10/17 13:43 Patient was under the impression that she was to see Dr. Donato in the emergency room. I called him and he asked to set up an appointment for Monday. He also asked to not do any procedure today, when I explained this to the patient she insisted we take care of the external hemorrhoid and she will follow-up if needed. At that point the perianal area was sterilized with Betadine, infiltrated with 1% lidocaine and crossclamped the hemorrhoid. It was removed with an iris scissors. Patient was given 2% viscous lidocaine over the area and a packing, and encouraged to take several warm baths daily and recheck Monday if needed. She was also given 10 hydrocodone for intermittent pain control. Departure - Departure Time of Disposition: 13:53 Disposition: Home, Self-Care 01 Condition: Good Clinical Impression: External hemorrhoid, thrombosed - Discharge Information Instructions: Hemorrhoids, [id number] Referrals: Jennifer Dunham CNM [Primary Care Provider] - Forms: ED Department Discharge Care Plan Goals: Several warm baths daily will help, and you can continue using topical hemorrhoid cream. Recheck on Monday if not improving satisfactorily.
== END 2017-07-10 13:56 | disposition home or self-care (01) ==
LOC: JP.ED 12:05
DX: K64.5 Perianal venous thrombosis (principal); I10 Essential (primary) hypertension; K21.9 Gastro-esophageal reflux disease without esophagitis; Z79.899 Other long term (current) drug therapy; Z91.048 Other nonmedicinal substance allergy status; Z87.891 Personal history of nicotine dependence
CPT/HCPCS: 46320; 99284; A9270

== ENCOUNTER 2017-07-28 09:13 | Day surgery (SDC) | payer MEDICAID ==
[~2017-07-28 09:13] MED LIST changes: -Acetaminophen 500 MG Tab PO ONE; -Bupivacaine 0.5%/EPINEPHrine 1:200,000 50 ML MDV ONE; -Celecoxib 200 MG Cap PO ONE; +Dexamethasone 4 MG/ML SDV ONE; -Dextrose 5%-Lactated Ringers 1,000 ML IV SCH; -Gabapentin 300 MG Cap PO ONE; +Glycopyrrolate 0.2 MG/ML 5 ML MDV ONE; +Neostigmine Methylsulfate 1 MG/ML 5 ML Syringe ONE; +Ondansetron 4 MG/2 ML SDV ONE; +Propofol 200 MG/20 ML SDV ONE; +Rocuronium 50 MG/5 ML Vial ONE; -Scopolamine 1.5 MG Transdermal Patch TOP SCH; +Succinylcholine 200 MG/10 ML MDV ONE; +fentaNYL 250 MCG/5 ML SDV ONE
[2017-07-28] MEDS ORDERED: Acetaminophen 500 MG Tab PO ONE (09:15)
[2017-07-28] MEDS ORDERED: Dextrose 5%-Lactated Ringers 1,000 ML IV SCH (09:30)
[2017-07-28] MEDS ORDERED: Lidocaine 2% Jelly 10 ML Urojet ONE (09:55)
[2017-07-28] MEDS ORDERED: Bupivacaine 0.5%/EPINEPHrine 1:200,000 50 ML MDV ONE (09:56)
[2017-07-28] MEDS ORDERED: cefOXitin 2 GM in Sodium Chloride 0.9% 50 ML IV ONE (10:00)
[2017-07-28] MEDS ORDERED: fentaNYL 100 MCG/2 ML SDV ONE (11:43)
[2017-07-28 12:57] VITALS: BP 125/88
--- NOTE | 2017-07-31 14:58 | OR ---
PREOPERATIVE DIAGNOSIS: Chronic anorectal pain and bleeding. POSTOPERATIVE DIAGNOSIS: Chronic anorectal pain and bleeding associated with chronic anal fissure and associated inflamed hemorrhoids. OPERATIVE PROCEDURE: Anorectal examination under anesthesia with: 1. Anal fissurectomy with left lateral internal sphincterotomy. 2. Hemorrhoidectomy (two columns) ([id number]). ANESTHESIA: General. INDICATION FOR PROCEDURE: This 32-year-old is presenting with some chronic anal discomfort, unable to obtain adequate examination in the clinic, and given this, plan was to proceed with an anorectal examination under anesthesia with procedures as indicated likely including either hemorrhoidectomy and/or fissurectomy and sphincterotomy. Potential risks of the procedure including bleeding, infection, problems with anal incontinence postoperatively were all reviewed, and the patient wishes to proceed. DETAILS OF PROCEDURE: The patient was taken to the operative room. After general endotracheal anesthesia was induced, was placed in a lithotomy position. The initial anorectal examination showed a well-defined posterior anal fissure. This was fairly thick and chronic in appearance. With this, there were some inflamed hemorrhoids with posteriorly as well as the anorectal wall. At this point, the fissure was then excised. This included excision of some attached hemorrhoidal tissue within it and this was then closed with a running 4-0 Vicryl stitch leaving the lower aspect of the incision open for drainage. Lateral internal sphincterotomy was accomplished. This also included excision of some of hemorrhoidal closure. The lower 2/3rd of the internal sphincter was divided and the closure was also with a 4-0 Vicryl stitch including excision of some of the hemorrhoidal tissue in that area. Both of the sites were anesthetized with 0.5% Marcaine and no further problems were noted. Packing was placed. The patient was taken to the recovery room in satisfactory condition. Neftaly Donato MD /[id number]
== END 2017-07-28 14:06 | disposition home or self-care (01) ==
LOC: JP.SDS 09:13
PROVIDERS: ATTEND Surgery
DX: K64.8 Other hemorrhoids (principal); K60.1 Chronic anal fissure; G89.29 Other chronic pain; K62.89 Other specified diseases of anus and rectum; K62.5 Hemorrhage of anus and rectum; J45.909 Unspecified asthma, uncomplicated; I10 Essential (primary) hypertension; E03.9 Hypothyroidism, unspecified; F41.9 Anxiety disorder, unspecified; E55.9 Vitamin D deficiency, unspecified; F17.200 Nicotine dependence, unspecified, uncomplicated; Z79.899 Other long term (current) drug therapy
CPT/HCPCS: 46261; 81025; A9270; J0694; J1100; J2405; J2704; J2710; J3010; J7042; J7050; 88304; J0330

== ENCOUNTER 2017-08-27 15:26 | Emergency (ER) | payer MEDICAID ==
--- NOTE | 2017-08-27 15:58 | EDM.PDOC ---
ED HPI GENERAL MEDICAL PROBLEM - General Chief Complaint: Abdominal Pain Stated Complaint: PAIN IN HERNIA SURGICAL SITE Time Seen by Provider: 08/27/17 15:58 Source of Information: Reports: Patient History Limitations: Reports: No Limitations - History of Present Illness INITIAL COMMENTS - FREE TEXT/NARRATIVE: Pt had a hernia repair in Mar. She had some complications after the surgery in that the bowel stuck to the mesh. She is having bms and she is passing gas. She is not vomiting. Pt is rating her pain at a 7-8. Onset: Gradual, Other ( worse the last 2 days. She feels like she has a recurrent hernia near the umbilicus. ) Duration: Day(s):, Getting Worse Location: Reports: Abdomen Associated Symptoms: Reports: Nausea/Vomiting, Other ( weakness near the umbilcus where the hernia repair was done) Left Lower Abdomen Pain Score (Numeric/FACES): 7 - Related Data Allergies Allergy/AdvReac Type Severity Reaction Status Date / Time iron [From Venofer] Allergy Hives Verified 07/10/17 12:39 seasonal Allergy Cannot Uncoded 07/10/17 12:39 Remember Home Meds: Home Meds Cyanocobalamin (Vitamin B-12) [Vitamin B-12] 1,000 mcg SL DAILY #100 tab.subl [Rx] Calcium Citrate/Vitamin D3 [Calcium Citrate + D] 400 - 500 mg PO BID 11/24/15 [ History] LORazepam 0.5 mg PO BID PRN 11/24/15 [History] Omeprazole 40 mg PO DAILY 11/24/15 [History] Thiamine [Vitamin B-1] 100 mg PO DAILY 03/17/16 [History] Iron,Carbonyl/Ascorbic Acid [Vitron-C Tablet] 1 each PO DAILY #30 tablet.dr [Rx] Folic Acid 2 tab PO DAILY 04/24/17 [History] Multivitamin [Kid's Vitamins Complete] 1 each PO DAILY 04/24/17 [History] Zinc 1 tab PO DAILY 04/24/17 [History] Levothyroxine Sodium [Synthroid] 1 tab PO DAILY 05/20/17 [History] Etonogestrel [Nexplanon] 68 mg SQ ASDIRECTED 07/27/17 [History] Lisinopril 10 mg PO DAILY 07/27/17 [History] PARoxetine [Paxil] 20 mg PO DAILY 07/27/17 [History] Past Medical History HEENT History: Reports: Allergic Rhinitis, Impaired Vision Cardiovascular History: Reports: Hypertension Respiratory History: Reports: None Gastrointestinal History: Reports: GERD Genitourinary History: Reports: None SAS ARCHITECT History: Reports: , Spontaneous Musculoskeletal History: Reports: Fracture Neurological History: Reports: Concussion, Head Trauma Psychiatric History: Reports: Anxiety, Depression, PTSD Endocrine/Metabolic History: Reports: Diabetes, Gestational Hematologic History: Reports: B12 Deficiency, Iron Deficiency Immunologic History: Reports: None Oncologic (Cancer) History: Reports: None Dermatologic History: Reports: None - Infectious Disease History Infectious Disease History: Reports: Chicken Pox - Past Surgical History HEENT Surgical History: Reports: None GI Surgical History: Reports: Bariatric Procedure, Hernia, Abdominal, Hernia Repair/Other Female Surgical History: Reports: Section, D&C Musculoskeletal Surgical History: Reports: None Social & Family History - Family History Family Medical History: Noncontributory HEENT: Reports: Hearing Impairment, Impaired Vision, Otitis Media, Sinusitis Cardiac: Reports: Bypass, CAD, NM Respiratory: Reports: None GI: Reports: None : Reports: None OBGYN: Reports: None Musculoskeletal: Reports: None Neurological: Reports: Alzheimers Disease, Dementia Psychiatric: Reports: Depression Endocrine/Metabolic: Reports: Diabetes, type II Hematologic: Reports: None Immunologic: Reports: None Dermatologic: Reports: None Oncologic: Reports: None - Tobacco Use Smoking Status *Q: Current Every Day Smoker Years of Tobacco use: 3 Packs/Tins Daily: 0.5 Used Tobacco, but Quit: Yes Month/Year Tobacco Last Used: MARCH Second Hand Smoke Exposure: No - Caffeine Use Caffeine Use: Reports: None - Alcohol Use Days Per Week of Alcohol Use: 0 Number of Drinks Per Day: 5 Total Drinks Per Week: 0 - Recreational Drug Use Recreational Drug Use: No ED ROS GENERAL - Review of Systems Review Of Systems: See Below Constitutional: Reports: No Symptoms HEENT: Reports: No Symptoms Respiratory: Reports: No Symptoms Cardiovascular: Reports: No Symptoms Endocrine: Reports: No Symptoms GI/Abdominal: Reports: Abdominal Pain : Reports: No Symptoms Musculoskeletal: Reports: No Symptoms Skin: Reports: No Symptoms Neurological: Reports: No Symptoms ED EXAM, GI/ABD - Physical Exam Exam: See Below Text/Narrative:: pt arrived having pain in the 7 range in the left mid abdoman. She is not vomiting and she has been passing gas. She did have a bm today. Exam Limited By: No Limitations General Appearance: Alert, Anxious Ears: Normal TMs Nose: Normal Inspection Throat/Mouth: Normal Inspection Head: Atraumatic Neck: Normal Inspection Respiratory/Chest: No Respiratory Distress Cardiovascular: Regular Rate, Rhythm GI/Abdominal Exam: Soft, Other ( tender near the umbilus and there appears to be slight weakness. no distention) (Female) Exam: Deferred Rectal (Female) Exam: Deferred Back Exam: Normal Inspection Extremities: Normal Inspection Neurological: Alert, Oriented, Normal Cognition Psychiatric: Normal Affect Course - Vital Signs Last Recorded V/S: Last Vital Signs Temp 36.8 C 08/27/17 17:33 Pulse 74 08/27/17 17:33 Resp 16 08/27/17 17:33 BP 128/76 08/27/17 17:33 Pulse Ox 100 08/27/17 17:33 - Orders/Labs/Meds Orders: Active Orders 24 hr Category Date Time Status Abdomen Pelvis w Cont [CT] Stat Exams 08/27/17 16:37 Taken UA W/MICROSCOPIC [URIN] Urgent Lab 08/27/17 17:10 Ordered Iopamidol [Isovue-300 (61%)] Med 08/27/17 16:45 Active 100 ml IV . DIRECTED Sodium Chloride 0.9% [Normal Saline] 1,000 ml Med 08/27/17 16:00 Active IV ASDIRECTED Sodium Chloride 0.9% [Normal Saline] 100 ml Med 08/27/17 16:45 Active IV ASDIRECTED Medication Orders Sodium Chloride (Normal Saline) 1,000 mls @ 999 mls/hr IV ASDIRECTED [facility] Last Admin: 08/27/17 16:12 Dose: 999 mls/hr Sodium Chloride (Normal Saline) 100 mls @ 3 mls/sec IV ASDIRECTED [facility] Last Admin: 08/27/17 16:59 Dose: 3 mls/sec Iopamidol (Isovue-300 (61%)) 100 ml IV . DIRECTED [facility] Last Admin: 08/27/17 17:00 Dose: 100 ml Labs: Laboratory Tests 08/27/17 08/27/17 08/27/17 Range/Units 16:09 16:09 16:09 WBC 6.2 (4.5-11.0) K/uL RBC 4.09 (3.30-5.50) M/uL Hgb 11.6 L (12.0-15.0) g/dL Hct 35.3 L (36.0-48.0) % MCV 86 (80-98) fL MCH 28 (27-31) pg MCHC 33 (32-36) % Plt Count 323 (150-400) K/uL Neut % (Auto) 56 (36-66) % Lymph % (Auto) 36 (24-44) % [place] % (Auto) 7 H (2-6) % Eos % (Auto) 0 L (2-4) % Baso % (Auto) 0 (0-1) % Sodium 144 (140-148) mmol/L Potassium 3.9 (3.6-5.2) mmol/L Chloride 107 (100-108) mmol/L Carbon Dioxide 27 (21-32) mmol/L Anion Gap 9.9 (5.0-14.0) mmol/L BUN 8 (7-18) mg/dL Creatinine 0.9 (0.6-1.0) mg/dL Est Cr Clr Drug Dosing 85.65 mL/min Estimated GFR (MDRD) > 60 (>60) Glucose 92 (74-106) mg/dL Calcium 8.2 L (8.5-10.1) mg/dL Total Bilirubin 0.3 (0.2-1.0) mg/dL AST 74 H D (15-37) U/L ALT 159 H (12-78) U/L Alkaline Phosphatase 190 H (46-116) U/L C-Reactive Protein 0.13 (0.0-0.3) mg/dL Total Protein 7.2 (6.4-8.2) g/dL Albumin 3.4 (3.4-5.0) g/dL Globulin 3.8 H (2.3-3.5) g/dL Albumin/Globulin Ratio 0.9 L (1.2-2.2) Urine Color Urine Appearance Urine pH (4.5-8.0) Ur Specific [place] (1.008-1.030) Urine Protein (NEGATIVE) mg/dL Urine Glucose (UA) (NEGATIVE) mg/dL Urine Ketones (NEGATIVE) mg/dL Urine Occult Blood (NEGATIVE) Urine Nitrite (NEGATIVE) Urine Bilirubin (NEGATIVE) Urine Urobilinogen (NORMAL) mg/dL Ur Leukocyte Esterase (NEGATIVE) Urine RBC (0-5) Urine WBC (0-5) Ur Epithelial Cells Amorphous Sediment Urine Bacteria Urine Mucus 08/27/17 Range/Units 17:10 WBC (4.5-11.0) K/uL RBC (3.30-5.50) M/uL Hgb (12.0-15.0) g/dL Hct (36.0-48.0) % MCV (80-98) fL MCH (27-31) pg MCHC (32-36) % Plt Count (150-400) K/uL Neut % (Auto) (36-66) % Lymph % (Auto) (24-44) % [place] % (Auto) (2-6) % Eos % (Auto) (2-4) % Baso % (Auto) (0-1) % Sodium (140-148) mmol/L Potassium (3.6-5.2) mmol/L Chloride (100-108) mmol/L Carbon Dioxide (21-32) mmol/L Anion Gap (5.0-14.0) mmol/L BUN (7-18) mg/dL Creatinine (0.6-1.0) mg/dL Est Cr Clr Drug Dosing mL/min Estimated GFR (MDRD) (>60) Glucose (74-106) mg/dL Calcium (8.5-10.1) mg/dL Total Bilirubin (0.2-1.0) mg/dL AST (15-37) U/L ALT (12-78) U/L Alkaline Phosphatase (46-116) U/L C-Reactive Protein (0.0-0.3) mg/dL Total Protein (6.4-8.2) g/dL Albumin (3.4-5.0) g/dL Globulin (2.3-3.5) g/dL Albumin/Globulin Ratio (1.2-2.2) Urine Color Yellow Urine Appearance Slightly cloudy Urine pH 5.0 (4.5-8.0) Ur Specific [place] 1.020 (1.008-1.030) Urine Protein Negative (NEGATIVE) mg/dL Urine Glucose (UA) Normal (NEGATIVE) mg/dL Urine Ketones Negative (NEGATIVE) mg/dL Urine Occult Blood Negative (NEGATIVE) Urine Nitrite Negative (NEGATIVE) Urine Bilirubin Small (NEGATIVE) Urine Urobilinogen Normal (NORMAL) mg/dL Ur Leukocyte Esterase Negative (NEGATIVE) Urine RBC 0-5 (0-5) Urine WBC 0-5 (0-5) Ur Epithelial Cells Rare Amorphous Sediment Rare Urine Bacteria Not seen Urine Mucus Rare Meds: Medications Generic Name Dose Route Start Last Admin Trade Name Freq PRN Reason Stop Dose Admin Sodium Chloride 1,000 mls @ 999 mls/hr 08/27/17 16:00 08/27/17 16:12 Normal Saline IV 999 mls/hr ASDIRECTED [facility] Administration Sodium Chloride 100 mls @ 3 mls/sec 08/27/17 16:45 08/27/17 16:59 Normal Saline IV 3 mls/sec ASDIRECTED [facility] Administration Iopamidol 100 ml 08/27/17 16:45 08/27/17 17:00 Isovue-300 (61%) IV 100 ml . DIRECTED [facility] Administration Discontinued Medications Generic Name Dose Route Start Last Admin Trade Name Freq PRN Reason Stop Dose Admin Hydromorphone HCl 0.5 mg 08/27/17 16:00 08/27/17 16:12 Dilaudid IVPUSH 08/27/17 16:01 0.5 mg ONETIME ONE Administration Ondansetron HCl 4 mg 08/27/17 15:59 08/27/17 16:12 Zofran IVPUSH 08/27/17 16:00 4 mg ONETIME ONE Administration - Re-Assessments/Exams Free Text/Narrative Re-Assessment/Exam: 08/27/17 17:58 urine was clear, wbc is not elevated, cat scan of the abdoman does not show acute findings. Dr Donato was consulted and he will see her on mon and review the situation Departure - Departure Time of Disposition: 17:52 Disposition: Home, Self-Care 01 Condition: Fair Clinical Impression: Abdominal pain, History of rectal surgery - Discharge Information Referrals: Jennifer Dunham CNM [Primary Care Provider] - Forms: ED Department Discharge Care Plan Goals: appt with Dr Donato on mon, norco 5/325 q8h prn for pain#10rtc if increased problems. - My Orders Last 24 Hours: My Active Orders 08/27/17 16:00 Sodium Chloride 0.9% [Normal Saline] 1,000 ml IV ASDIRECTED 08/27/17 16:37 Abdomen Pelvis w Cont [CT] Stat 08/27/17 16:45 Iopamidol [Isovue-300 (61%)] 100 ml IV . DIRECTED Sodium Chloride 0.9% [Normal Saline] 100 ml IV ASDIRECTED 08/27/17 17:10 UA W/MICROSCOPIC [URIN] Urgent - Assessment/Plan Last 24 Hours: My Active Orders 08/27/17 16:00 Sodium Chloride 0.9% [Normal Saline] 1,000 ml IV ASDIRECTED 08/27/17 16:37 Abdomen Pelvis w Cont [CT] Stat 08/27/17 16:45 Iopamidol [Isovue-300 (61%)] 100 ml IV . DIRECTED Sodium Chloride 0.9% [Normal Saline] 100 ml IV ASDIRECTED 08/27/17 17:10 UA W/MICROSCOPIC [URIN] Urgent
[2017-08-27] MEDS ORDERED: Ondansetron 4 MG/2 ML SDV IVPUSH ONE (15:59)
[2017-08-27] MEDS ORDERED: HYDROmorphone 0.5 MG/0.5 ML Syringe IVPUSH ONE (16:00)
[2017-08-27] MEDS ORDERED: Sodium Chloride 0.9% 1,000 ML IV SCH (16:00)
[2017-08-27] MEDS ORDERED: Sodium Chloride 0.9% 100 ML IV SCH (16:45)
[2017-08-27] MEDS ORDERED: Iopamidol 612 MG/ML 100 ML Bottle IV SCH (16:45)
[2017-08-27 17:35] VITALS: BP 128/76
== END 2017-08-27 18:20 | disposition home or self-care (01) ==
LOC: JP.ED 15:26
DX: R10.32 Left lower quadrant pain (principal); F17.210 Nicotine dependence, cigarettes, uncomplicated; Z91.048 Other nonmedicinal substance allergy status; Z79.899 Other long term (current) drug therapy; Z98.890 Other specified postprocedural states
CPT/HCPCS: 36415; 74177; 80053; 81001; 85025; 86140; 96361; 96374; 96375; 99284; J1170; J2405; J7030; J7040; Q9967

== ENCOUNTER 2017-09-04 07:32 | Inpatient (IN) | payer MEDICAID ==
[2017-09-04] MEDS ORDERED: Celecoxib 200 MG Cap PO ONE (07:45)
[2017-09-04] MEDS ORDERED: Acetaminophen 500 MG Tab PO ONE (07:45)
[2017-09-04] MEDS ORDERED: Scopolamine 1.5 MG Transdermal Patch TOP SCH (07:45)
[2017-09-04] MEDS ORDERED: Bupivacaine 0.5%/EPINEPHrine 1:200,000 50 ML MDV ONE (07:47)
[2017-09-04] MEDS ORDERED: Meropenem 500 MG SDV ONE (07:48)
[2017-09-04] MEDS ORDERED: Naloxone 0.4 MG/ML SDV IVPUSH PRN (08:00)
[2017-09-04] MEDS ORDERED: Albuterol/Ipratropium 3.0-0.5 MG/3 ML Neb Soln NEB ONE (08:22)
[2017-09-04] MEDS ORDERED: Dextrose 5%-Lactated Ringers 1,000 ML IV SCH (08:30)
[2017-09-04] MEDS ORDERED: Ropivacaine 34 ML, Dexamethasone 8 MG, EPINEPHrine 0.4 MG, Sodium Chloride 0.9% 43.6 ML NERVRT SCH ×4 (09:15)
[2017-09-04] MEDS ORDERED: Ketamine 500 MG/5 ML MDV IV SCH (09:15)
[2017-09-04] MEDS: HYDROmorphone/Normal Saline 15 MG/30 ML PCA IV PRN (09:35)
[2017-09-04] MEDS: cefOXitin 2 GM in Sodium Chloride 0.9% 50 ML IV ONE ×2 (10:15→14:04)
[2017-09-04] MEDS ORDERED: fentaNYL 250 MCG/5 ML SDV ONE ×2 (10:48→12:21)
[2017-09-04] MEDS ORDERED: Rocuronium 50 MG/5 ML Vial ONE (11:25)
[2017-09-04] MEDS ORDERED: Linezolid 200 MG/100 ML Bag IRR ONE (12:45)
[2017-09-04] MEDS: Dextrose 5%-Lactated Ringers 1,000 ML IV SCH ×2 (14:10→22:10)
[2017-09-04] MEDS ORDERED: LORazepam 0.5 MG Tab PO PRN (14:19)
[2017-09-04] MEDS ORDERED: LORazepam 2 MG/ML SDV IV PRN (14:19)
[2017-09-04] MEDS ORDERED: hydrOXYzine HCl 100 MG/2 ML SDV IM PRN (14:20)
[2017-09-04] MEDS ORDERED: Ondansetron 4 MG/2 ML SDV IVPUSH PRN (15:00)
[2017-09-04] MEDS: cefOXitin 2 GM in Sodium Chloride 0.9% 50 ML IV SCH ×2 (15:53→22:09)
[2017-09-04] MEDS: VERIFY SCOP PATCH TOP SCH (15:55)
[2017-09-04] MEDS ORDERED: Pantoprazole 40 MG Vial IVPUSH SCH (16:00)
[2017-09-04] MEDS: PARoxetine 20 MG Tab PO SCH (22:09)
[2017-09-05] MEDS: HYDROmorphone/Normal Saline 15 MG/30 ML PCA IV PRN ×2 (01:24→19:35)
[2017-09-05] MEDS: cefOXitin 2 GM in Sodium Chloride 0.9% 50 ML IV SCH ×4 (04:40→21:48)
--- NOTE | 2017-09-05 07:26 | PCM.SURGPN ---
- General Info Date of Service: 09/05/17 Date of Surgery/Procedure: 09/04/17 POD#: 1 Post-Op Diagnosis: incisional hernia; biliary dyskinesia Functional Status: Reports: Pain Controlled, Tolerating Diet, Ambulating, Urinating - Review of Systems General: Reports: No Symptoms HEENT: Reports: No Symptoms Pulmonary: Reports: No Symptoms Cardiovascular: Reports: No Symptoms Gastrointestinal: Reports: No Symptoms Genitourinary: Reports: No Symptoms Musculoskeletal: Reports: No Symptoms Skin: Reports: No Symptoms Neurological: Reports: No Symptoms Psychiatric: Reports: No Symptoms Systems Review Comment:: Patient reports that she feels well today. She states that pain is controlled with BASS VIOL REPAIRER. She states that she is tolerating her diet and has been up ambulating. Denies flatus or feeling distended. - Patient Data Vitals - Most Recent: Last Vital Signs Temp 36.5 C 09/05/17 03:00 Pulse 87 09/05/17 03:00 Resp 12 09/05/17 03:00 BP 139/69 09/05/17 03:00 Pulse Ox 96 09/05/17 07:18 Weight - Most Recent: 70.08 kg I&O - Last 24 Hours: Intake & Output 09/04/17 09/05/17 09/05/17 22:59 06:59 14:59 Intake Total 1103 2039 Output Total 1275 1765 Balance -172 274 Lab Results Last 24 Hrs: Laboratory Results - last 24 hr 09/04/17 09/05/17 09/05/17 Range/Units 07:45 04:30 04:45 WBC 13.7 H (4.5-11.0) K/uL RBC 3.80 (3.30-5.50) M/uL Hgb 10.5 L (12.0-15.0) g/dL Hct 32.7 L (36.0-48.0) % MCV 86 (80-98) fL MCH 28 (27-31) pg MCHC 32 (32-36) % Plt Count 287 (150-400) K/uL Total Bilirubin 0.2 (0.2-1.0) mg/dL Alkaline Phosphatase 149 H (46-116) U/L Urine HCG, Qual Negative Med Orders - Current: Current Medications Celecoxib (Celebrex) 200 mg PO DAILY [facility] Hydromorphone HCl (Dilaudid Ward Clerk 15 Mg In Ns 30 Ml) 0 mg IV ASDIRECTED PRN; Protocol PRN Reason: Pain Last Admin: 09/05/17 01:24 Dose: 15 mg Hydroxyzine HCl (Vistaril) 100 mg IM Q4H PRN PRN Reason: PAIN Dextrose/Lactated Ringer's (Dextrose 5%-Lactated Ringers) 1,000 mls @ 125 mls/ hr IV ASDIRECTED [facility] Last Admin: 09/04/17 22:10 Dose: 125 mls/hr Cefoxitin Sodium 2 gm/ Sodium (Chloride) 50 mls @ 100 mls/hr IV Q6H [facility] Last Admin: 09/05/17 04:40 Dose: 100 mls/hr Levothyroxine Sodium 100 mcg/ (Levothyroxine Sodium 25 mcg) 125 mcg PO ACBREAKFAST [facility] Lisinopril (Prinivil) 10 mg PO DAILY [facility] Lorazepam (Ativan) 0.5 mg PO Q4H PRN PRN Reason: ANXIETY Lorazepam (Ativan) 0.5 mg IV Q4H PRN PRN Reason: ANXIETY Naloxone HCl (Narcan) 0.1 mg IVPUSH Q5M PRN PRN Reason: Respiratory Distress Verify Scop Patch 0 each TOP DAILY [facility] Last Admin: 09/04/17 15:55 Dose: Not Given Ondansetron HCl (Zofran) 4 mg IVPUSH Q4H PRN PRN Reason: Nausea/Vomiting Pantoprazole Sodium (Protonix Iv) 40 mg IVPUSH Q24H [facility] Last Admin: 09/04/17 15:56 Dose: 40 mg Paroxetine HCl (Paxil) 20 mg PO DAILY [facility] Last Admin: 09/04/17 22:09 Dose: 20 mg Scopolamine (Transderm-Scop) 1.5 mg TOP Q72H [facility] Stop: 09/06/17 09:00 Last Admin: 09/04/17 08:01 Dose: 1.5 mg Discontinued Medications Acetaminophen (Tylenol Extra Strength) 1,000 mg PO ONETIME ONE Stop: 09/04/17 07:46 Last Admin: 09/04/17 07:59 Dose: 1,000 mg Albuterol/Ipratropium (Duoneb 3.0-0.5 Mg/3 Ml) 3 ml NEB ONETIME ONE Stop: 09/04/17 08:23 Last Admin: 09/04/17 09:51 Dose: 3 ml Bupivacaine HCl/Epinephrine Bitart (Marcaine 0.5%/Epinephrine 1:200,000) Confirm Administered Dose 50 ml .ROUTE .STK-MED ONE Stop: 09/04/17 07:48 Celecoxib (Celebrex) 200 mg PO ONETIME ONE Stop: 09/04/17 07:46 Last Admin: 09/04/17 08:00 Dose: 200 mg Ropivacaine 34 ml/Dexamethasone 8 mg/Epinephrine HCl 0.4 mg/ Sodium Chloride 43.6 ml 0 ml NERVRT ASDIRECTED [facility] Last Admin: 09/04/17 10:45 Dose: 2 syringe Dexamethasone (Dexamethasone) Confirm Administered Dose 4 mg .ROUTE .ST-MED ONE Stop: 09/04/17 07:12 Fentanyl (Sublimaze) Confirm Administered Dose 250 mcg .ROUTE .STK-MED ONE Stop: 09/04/17 07:12 Fentanyl (Sublimaze) Confirm Administered Dose 250 mcg .ROUTE .STK-MED ONE Stop: 09/04/17 10:49 Fentanyl (Sublimaze) Confirm Administered Dose 250 mcg .ROUTE .STK-MED ONE Stop: 09/04/17 12:22 Glycopyrrolate (Robinul) Confirm Administered Dose 1 mg .ROUTE .STK-MED ONE Stop: 09/04/17 07:12 Dextrose/Lactated Ringer's (Dextrose 5%-Lactated Ringers) 1,000 mls @ 100 mls/ hr IV ASDIRECTED [facility] Last Admin: 09/04/17 08:38 Dose: 100 mls/hr Cefoxitin Sodium 2 gm/ Sodium (Chloride) 50 mls @ 100 mls/hr IV ONETIME ONE Stop: 09/04/17 09:29 Last Admin: 09/04/17 14:04 Dose: Not Given Linezolid (Zyvox) Confirm Administered Dose 300 mls @ as directed .ROUTE .[facility]- MED ONE Stop: 09/04/17 11:07 Ketamine HCl (Ketalar) 30 mg IV ASDIRECTED [facility] Linezolid (Zyvox) 600 mg IRR .STK-MED ONE Stop: 09/04/17 12:46 Last Admin: 09/04/17 12:45 Dose: 600 mg Meropenem (Merrem) Confirm Administered Dose 500 mg .ROUTE .STK-MED ONE Stop: 09/04/17 07:49 Last Admin: 09/04/17 12:45 Dose: 500 mg Neostigmine Methylsulfate (Neostigmine) Confirm Administered Dose 5 mg .ROUTE .STK-MED ONE Stop: 09/04/17 07:12 Ondansetron HCl (Zofran) Confirm Administered Dose 4 mg .ROUTE .STK-MED ONE Stop: 09/04/17 07:12 Propofol (Diprivan 20 Ml) Confirm Administered Dose 200 mg .ROUTE .STK-MED ONE Stop: 09/04/17 07:12 Rocuronium [place] (Zemuron) Confirm Administered Dose 50 mg .ROUTE .STK-MED ONE Stop: 09/04/17 07:12 Rocuronium [place] (Zemuron) Confirm Administered Dose 50 mg .ROUTE .STK-MED ONE Stop: 09/04/17 11:26 Succinylcholine Chloride (Quelicin) Confirm Administered Dose 200 mg .ROUTE .STK -MED ONE Stop: 09/04/17 07:12 - Exam Wound/Incisions: Dressing Dry and Intact General: Alert, Oriented, Cooperative, No Acute Distress HEENT: Pupils Equal, Pupils Reactive Neck: Supple, Trachea Midline Lungs: Clear to Auscultation, Normal Respiratory Effort Cardiovascular: Regular Rate, Regular Rhythm GI/Abdominal Exam: Soft, Tender, Abnormal Bowel Sounds (hypoactive) Extremities: Normal Inspection Skin: Warm, Dry, Intact Neurological: No New Focal Deficit Psy/Mental Status: Alert, Normal Affect, Normal Mood - Problem List & Annotations (1) Status post hernia repair SNOMED Code(s): 57229916575863, 81321014014882 Code(s): Z98.890 - OTHER SPECIFIED POSTPROCEDURAL STATES; Z87.19 - PERSONAL HISTORY OF OTHER DISEASES OF THE DIGESTIVE SYSTEM Status: Acute Current Visit: Yes (2) Status post cholecystectomy SNOMED Code(s): 985354099, 60090233, [id number] Code(s): Z90.49 - ACQUIRED ABSENCE OF OTHER SPECIFIED PARTS OF DIGESTIVE TRACT Status: Acute Current Visit: Yes - Problem List Review Problem List Initiated/Reviewed/Updated: Yes - My Orders Last 24 Hours: Active Orders 24 hr Category Date Time Status Admission Status [Patient Status] [ADT] Routine ADT 09/04/17 13:15 Active Ambulate [RC] QID Care 09/04/17 14:04 Active Communication Order [RC] STAT Care 09/04/17 08:00 Active Drain Management [RC] Q12H Care 09/04/17 14:06 Active Intake and Output [RC] QSHIFT Care 09/04/17 14:06 Active May Shower [RC] ASDIRECTED Care 09/05/17 06:47 Active Notify Provider [RC] PRN Care 09/04/17 08:00 Active BASS VIOL REPAIRER Record [RC] PER UNIT ROUTINE Care 09/04/17 08:00 Active Pulse Oximetry [RC] CONTINUOUS Care 09/04/17 08:00 Active RT Incentive Spirometry [RC] Q1HWA Care 09/04/17 14:05 Active Turn, Cough, Deep Breathe [RC] Q1HWA Care 09/04/17 14:04 Active Up to Chair [RC] QID Care 09/04/17 14:04 Active Vital Signs [RC] Q4H Care 09/04/17 14:04 Active Consult to Dietary [Consult to Dimension Specification Inspector] [CONS] Cons 09/05/17 06:47 Active Routine Advance Diet Instructions [DIET] Diet 09/04/17 Dinner Active Bariatric Diet [DIET] Diet 09/05/17 Breakfast Active HCG QUALITATIVE,URINE [URCHEM] Routine Lab 09/04/17 07:45 Ordered Celecoxib [CeleBREX] Med 09/05/17 09:00 Active 200 mg PO DAILY Dextrose 5%-Lactated Ringers 1,000 ml Med 09/04/17 14:15 Active IV ASDIRECTED HYDROmorphone/Normal Saline [Dilaudid BASS VIOL REPAIRER 15 MG in NS Med 09/04/17 08:00 Active 30 ML] See Protocol IV ASDIRECTED PRN LORazepam [Ativan] Med 09/04/17 14:19 Active 0.5 mg IV Q4H PRN LORazepam [Ativan] Med 09/04/17 14:19 Active 0.5 mg PO Q4H PRN Levothyroxine [Synthroid] Med 09/05/17 07:30 Active 125 mcg PO ACBREAKFAST Lisinopril [Prinivil] Med 09/05/17 09:00 Active 10 mg PO DAILY Naloxone [Narcan] Med 09/04/17 08:00 Active 0.1 mg IVPUSH Q5M PRN Non-Formulary Medication [NF Drug] Med 09/04/17 16:00 Active 0 each TOP DAILY Ondansetron [Zofran] Med 09/04/17 15:00 Active 4 mg IVPUSH Q4H PRN PARoxetine [Paxil] Med 09/05/17 09:00 Active 20 mg PO DAILY Pantoprazole [ProTONIX IV] Med 09/04/17 16:00 Active 40 mg IVPUSH Q24H Scopolamine [Transderm-Scop] Med 09/04/17 07:45 Active 1.5 mg TOP Q72H cefOXitin [Mefoxin] 2 gm Med 09/04/17 16:00 Active Sodium Chloride 0.9% [Normal Saline] 50 ml IV Q6H hydrOXYzine HCl [Vistaril] Med 09/04/17 14:20 Active 100 mg IM Q4H PRN Drain Removal [OM.PC] Routine Oth 09/05/17 06:47 Ordered Medication Discontinuation Instructions [OM.PC] Stat Oth 09/04/17 08:00 Ordered SCD [Sequential Compression Device] [OM.PC] Routine Oth 09/04/17 08:00 Ordered Medication Orders Celecoxib (Celebrex) 200 mg PO DAILY [facility] Hydromorphone HCl (Dilaudid Ward Clerk 15 Mg In Ns 30 Ml) 0 mg IV ASDIRECTED PRN; Protocol PRN Reason: Pain Last Admin: 09/05/17 01:24 Dose: 15 mg Admin: 09/04/17 09:35 Dose: 0.3 mg Hydroxyzine HCl (Vistaril) 100 mg IM Q4H PRN PRN Reason: PAIN Dextrose/Lactated Ringer's (Dextrose 5%-Lactated Ringers) 1,000 mls @ 125 mls/ hr IV ASDIRECTED [facility] Last Admin: 09/04/17 22:10 Dose: 125 mls/hr Infusion: 09/04/17 22:10 Dose: 125 mls/hr Admin: 09/04/17 14:10 Dose: 125 mls/hr Cefoxitin Sodium 2 gm/ Sodium (Chloride) 50 mls @ 100 mls/hr IV Q6H [facility] Last Admin: 09/05/17 04:40 Dose: 100 mls/hr Admin: 09/04/17 22:09 Dose: 100 mls/hr Admin: 09/04/17 15:53 Dose: 100 mls/hr Levothyroxine Sodium 100 mcg/ (Levothyroxine Sodium 25 mcg) 125 mcg PO ACBREAKFAST [facility] Lisinopril (Prinivil) 10 mg PO DAILY [facility] Lorazepam (Ativan) 0.5 mg PO Q4H PRN PRN Reason: ANXIETY Lorazepam (Ativan) 0.5 mg IV Q4H PRN PRN Reason: ANXIETY Naloxone HCl (Narcan) 0.1 mg IVPUSH Q5M PRN PRN Reason: Respiratory Distress Verify Scop Patch 0 each TOP DAILY [facility] Last Admin: 09/04/17 15:55 Dose: Ondansetron HCl (Zofran) 4 mg IVPUSH Q4H PRN PRN Reason: Nausea/Vomiting Pantoprazole Sodium (Protonix Iv) 40 mg IVPUSH Q24H [facility] Last Admin: 09/04/17 15:56 Dose: 40 mg Paroxetine HCl (Paxil) 20 mg PO DAILY [facility] Last Admin: 09/04/17 22:09 Dose: 20 mg Scopolamine (Transderm-Scop) 1.5 mg TOP Q72H [facility] Stop: 09/06/17 09:00 Last Admin: 09/04/17 08:01 Dose: 1.5 mg - Assessment Assessment (Free Text/Narrative):: S/p open incisional hernia repair with mesh and laparoscopic cholecystectomy - Plan Plan (Free Text/Narrative):: -Continue BASS VIOL REPAIRER for pain control. -Step 4 diet. -Remove LUCIANO drain. -May shower today. 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 -Decrease IV fluids to 75 mL/hr. -Pantoprazole 40 mg PO q 24 hours. -Paroxetine 20 mg PO daily. -Lisinopril 10 mg PO daily. -Levothyroxine 125 mcg PO daily.
[2017-09-05] MEDS: Dextrose 5%-Lactated Ringers 1,000 ML IV SCH (07:36)
[2017-09-05] MEDS ORDERED: Dextrose 5%-Lactated Ringers 1,000 ML IV SCH (08:30)
[2017-09-05] MEDS: Levothyroxine 100 MCG, Levothyroxine 25 MCG PO SCH ×2 (08:32)
[2017-09-05] MEDS: Celecoxib 200 MG Cap PO SCH (09:35)
[2017-09-05] MEDS: Lisinopril 10 MG Tab PO SCH (09:35)
[2017-09-05] MEDS: VERIFY SCOP PATCH TOP SCH (09:35)
--- NOTE | 2017-09-05 09:37 | PN ---
DATE OF SERVICE: 09/05/2017 The patient has been afebrile with stable vital signs. Oral intake was fairly minimal, backed down on the IV rate. LUCIANO drain is putting out quite a bit of , not abnormal color, i.e., no bile. We will go to a step-4 diet. Continue the TOWER DRAGLINE OPERATOR for pain control, and maximize activity with pulmonary toilet. Neftaly Donato MD /[phone]
[2017-09-05] MEDS: PARoxetine 20 MG Tab PO SCH ×2 (11:03→21:49)
[2017-09-05] MEDS: Pantoprazole 40 MG Tab.CR PO SCH (16:13)
[2017-09-05] MEDS ORDERED: Nicotine Polacrilex 2 MG Gum CHEW PRN (21:29)
[2017-09-06] MEDS ORDERED: Calcium Carbonate 500 MG Tab.Chew PO ONE (02:04)
[2017-09-06] MEDS: cefOXitin 2 GM in Sodium Chloride 0.9% 50 ML IV SCH ×4 (05:04→22:32)
[2017-09-06] MEDS: Levothyroxine 100 MCG, Levothyroxine 25 MCG PO SCH ×2 (07:31)
[2017-09-06] MEDS ORDERED: Magnesium Citrate Solution 296 ML Bottle PO ONE (09:00)
--- NOTE | 2017-09-06 09:00 | PCM.SURGPN ---
- General Info Date of Service: 09/06/17 Date of Surgery/Procedure: 09/04/17 POD#: 2 Post-Op Diagnosis: incisional hernia, biliary dyskinesia Functional Status: Reports: Pain Controlled, Tolerating Diet, Ambulating, Urinating, Incentive Spirometry - Review of Systems General: Reports: No Symptoms HEENT: Reports: No Symptoms Pulmonary: Reports: No Symptoms Cardiovascular: Reports: No Symptoms Gastrointestinal: Reports: Other (discomfort due to bloating) Genitourinary: Reports: No Symptoms Musculoskeletal: Reports: No Symptoms Skin: Reports: No Symptoms Neurological: Reports: No Symptoms Psychiatric: Reports: No Symptoms Systems Review Comment:: Patient reports that she feels somewhat bloated today and uncomfortable. She states that her last BM was 09/04/2017. She denies any other concerns and states that she is otherwise doing well. - Patient Data Vitals - Most Recent: Last Vital Signs Temp 36.5 C 09/06/17 07:00 Pulse 72 09/06/17 07:00 Resp 16 09/06/17 07:00 BP 141/90 H 09/06/17 07:00 Pulse Ox 98 09/06/17 07:42 Weight - Most Recent: 70.08 kg I&O - Last 24 Hours: Intake & Output 09/05/17 09/06/17 09/06/17 22:59 06:59 14:59 Intake Total 600 2011 Output Total 1050 Balance -450 2012 Med Orders - Current: Current Medications Bisacodyl (Dulcolax) 10 mg PO BID [facility] Celecoxib (Celebrex) 200 mg PO DAILY [facility] Last Admin: 09/05/17 09:35 Dose: 200 mg Docusate Sodium (Colace) 100 mg PO BID [facility] Hydroxyzine HCl (Vistaril) 100 mg IM Q4H PRN PRN Reason: PAIN Cefoxitin Sodium 2 gm/ Sodium (Chloride) 50 mls @ 100 mls/hr IV Q6H [facility] Last Admin: 09/06/17 05:04 Dose: 100 mls/hr Levothyroxine Sodium 100 mcg/ (Levothyroxine Sodium 25 mcg) 125 mcg PO ACBREAKFAST [facility] Last Admin: 09/06/17 07:31 Dose: 125 mcg Lisinopril (Prinivil) 10 mg PO DAILY [facility] Last Admin: 09/05/17 09:35 Dose: 10 mg Lorazepam (Ativan) 0.5 mg PO Q4H PRN PRN Reason: ANXIETY Lorazepam (Ativan) 0.5 mg IV Q4H PRN PRN Reason: ANXIETY Magnesium Citrate (Citrate Of Magnesia) 296 ml PO ONETIME ONE Stop: 09/06/17 09:01 Naloxone HCl (Narcan) 0.1 mg IVPUSH Q5M PRN PRN Reason: Respiratory Distress Nicotine Polacrilex (Nicorelief) 2 mg CHEW Q2H PRN PRN Reason: Other Last Admin: 09/05/17 21:50 Dose: 2 mg Verify Scop Patch 0 each TOP DAILY [facility] Last Admin: 09/05/17 09:35 Dose: Not Given Ondansetron HCl (Zofran) 4 mg IVPUSH Q4H PRN PRN Reason: Nausea/Vomiting Oxycodone/Acetaminophen (Percocet 325-5 Mg) 1 - 2 tab PO Q4H PRN PRN Reason: Pain Pantoprazole Sodium (Protonix) 40 mg PO Q24H [facility] Last Admin: 09/05/17 16:13 Dose: 40 mg Paroxetine HCl (Paxil) 20 mg PO BEDTIME [facility] Last Admin: 09/05/17 21:49 Dose: 20 mg Scopolamine (Transderm-Scop) 1.5 mg TOP Q72H [facility] Stop: 09/06/17 09:00 Last Admin: 09/04/17 08:01 Dose: 1.5 mg Discontinued Medications Acetaminophen (Tylenol Extra Strength) 1,000 mg PO ONETIME ONE Stop: 09/04/17 07:46 Last Admin: 09/04/17 07:59 Dose: 1,000 mg Albuterol/Ipratropium (Duoneb 3.0-0.5 Mg/3 Ml) 3 ml NEB ONETIME ONE Stop: 09/04/17 08:23 Last Admin: 09/04/17 09:51 Dose: 3 ml Bupivacaine HCl/Epinephrine Bitart (Marcaine 0.5%/Epinephrine 1:200,000) Confirm Administered Dose 50 ml .ROUTE .[facility]-MED ONE Stop: 09/04/17 07:48 Calcium Carbonate/Glycine (Tums) 1,000 mg PO ONETIME ONE Stop: 09/06/17 02:05 Last Admin: 09/06/17 02:21 Dose: 1,000 mg Celecoxib (Celebrex) 200 mg PO ONETIME ONE Stop: 09/04/17 07:46 Last Admin: 09/04/17 08:00 Dose: 200 mg Ropivacaine 34 ml/Dexamethasone 8 mg/Epinephrine HCl 0.4 mg/ Sodium Chloride 43.6 ml 0 ml NERVRT ASDIRECTED [facility] Last Admin: 09/04/17 10:45 Dose: 2 syringe Dexamethasone (Dexamethasone) Confirm Administered Dose 4 mg .ROUTE .[facility] ONE Stop: 09/04/17 07:12 Fentanyl (Sublimaze) Confirm Administered Dose 250 mcg .ROUTE .[facility] ONE Stop: 09/04/17 07:12 Fentanyl (Sublimaze) Confirm Administered Dose 250 mcg .ROUTE .[facility] ONE Stop: 09/04/17 10:49 Fentanyl (Sublimaze) Confirm Administered Dose 250 mcg .ROUTE .[facility] ONE Stop: 09/04/17 12:22 Glycopyrrolate (Robinul) Confirm Administered Dose 1 mg .ROUTE .[facility] ONE Stop: 09/04/17 07:12 Hydromorphone HCl (Dilaudid Bag Maker 15 Mg In Ns 30 Ml) 0 mg IV ASDIRECTED PRN; Protocol PRN Reason: Pain Last Admin: 09/05/17 19:35 Dose: 15 mg Dextrose/Lactated Ringer's (Dextrose 5%-Lactated Ringers) 1,000 mls @ 100 mls/ hr IV ASDIRECTED [facility] Last Admin: 09/04/17 08:38 Dose: 100 mls/hr Cefoxitin Sodium 2 gm/ Sodium (Chloride) 50 mls @ 100 mls/hr IV ONETIME ONE Stop: 09/04/17 09:29 Last Admin: 09/04/17 14:04 Dose: Not Given Linezolid (Zyvox) Confirm Administered Dose 300 mls @ as directed .ROUTE .[facility] ONE Stop: 09/04/17 11:07 Dextrose/Lactated Ringer's (Dextrose 5%-Lactated Ringers) 1,000 mls @ 125 mls/ hr IV ASDIRECTED [facility] Last Infusion: 09/05/17 08:40 Dose: 75 mls/hr Dextrose/Lactated Ringer's (Dextrose 5%-Lactated Ringers) 1,000 mls @ 75 mls/ hr IV ASDIRECTED [facility] Last Admin: 09/05/17 21:54 Dose: 75 mls/hr Ketamine HCl (Ketalar) 30 mg IV ASDIRECTED [facility] Linezolid (Zyvox) 600 mg IRR .STK-MED ONE Stop: 09/04/17 12:46 Last Admin: 09/04/17 12:45 Dose: 600 mg Meropenem (Merrem) Confirm Administered Dose 500 mg .ROUTE .[facility]-MED ONE Stop: 09/04/17 07:49 Last Admin: 09/04/17 12:45 Dose: 500 mg Neostigmine Methylsulfate (Neostigmine) Confirm Administered Dose 5 mg .ROUTE .STK-MED ONE Stop: 09/04/17 07:12 Ondansetron HCl (Zofran) Confirm Administered Dose 4 mg .ROUTE .STK-MED ONE Stop: 09/04/17 07:12 Pantoprazole Sodium (Protonix Iv) 40 mg IVPUSH Q24H [facility] Last Admin: 09/04/17 15:56 Dose: 40 mg Paroxetine HCl (Paxil) 20 mg PO DAILY [facility] Last Admin: 09/05/17 11:03 Dose: Not Given Propofol (Diprivan 20 Ml) Confirm Administered Dose 200 mg .ROUTE .[facility]-MED ONE Stop: 09/04/17 07:12 Rocuronium [place] (Zemuron) Confirm Administered Dose 50 mg .ROUTE .[facility]-MED ONE Stop: 09/04/17 07:12 Rocuronium [place] (Zemuron) Confirm Administered Dose 50 mg .ROUTE .STK-MED ONE Stop: 09/04/17 11:26 Succinylcholine Chloride (Quelicin) Confirm Administered Dose 200 mg .ROUTE .STK -MED ONE Stop: 09/04/17 07:12 - Exam Wound/Incisions: Other (aquacell with moderate serosangineous drainage) General: Alert, Oriented, Cooperative, No Acute Distress HEENT: Pupils Equal, Pupils Reactive Neck: Supple, Trachea Midline Lungs: Clear to Auscultation, Normal Respiratory Effort Cardiovascular: Regular Rate, Regular Rhythm GI/Abdominal Exam: Normal Bowel Sounds, Soft, Distended (minimally) Extremities: Non-Tender, Pedal Edema (trace bilateral LE) Skin: Warm, Dry, Intact Neurological: No New Focal Deficit Psy/Mental Status: Alert, Normal Affect, Normal Mood - Problem List & Annotations (1) Status post hernia repair SNOMED Code(s): 09047475055133, 27959282974163 Code(s): Z98.890 - OTHER SPECIFIED POSTPROCEDURAL STATES; Z87.19 - PERSONAL HISTORY OF OTHER DISEASES OF THE DIGESTIVE SYSTEM Status: Acute Current Visit: Yes (2) Status post cholecystectomy SNOMED Code(s): 418973373, 25410511, 719240298 Code(s): Z90.49 - ACQUIRED ABSENCE OF OTHER SPECIFIED PARTS OF DIGESTIVE TRACT Status: Acute Current Visit: Yes - Problem List Review Problem List Initiated/Reviewed/Updated: Yes - My Orders Last 24 Hours: Active Orders 24 hr Category Date Time Status May Shower [RC] ASDIRECTED Care 09/06/17 08:22 Active Bariatric Diet [DIET] Diet 09/05/17 Breakfast Active Acetaminophen/oxyCODONE [Percocet 325-5 MG] Med 09/06/17 08:16 Active 1 - 2 tab PO Q4H PRN Bisacodyl [Dulcolax] Med 09/06/17 09:00 Active 10 mg PO BID Celecoxib [CeleBREX] Med 09/05/17 09:00 Active 200 mg PO DAILY Docusate Sodium [Colace] Med 09/06/17 09:00 Active 100 mg PO BID Lisinopril [Prinivil] Med 09/05/17 09:00 Active 10 mg PO DAILY Magnesium Citrate [Citrate of Magnesia] Med 09/06/17 09:00 Once 296 ml PO ONETIME ONE Nicotine Polacrilex [Nicorelief] Med 09/05/17 21:29 Active 2 mg CHEW Q2H PRN PARoxetine [Paxil] Med 09/05/17 21:00 Active 20 mg PO BEDTIME Pantoprazole [ProTONIX] Med 09/05/17 16:00 Active 40 mg PO Q24H Convert IV to Saline Lock [OM.PC] Routine Oth 09/06/17 08:20 Ordered Medication Orders Bisacodyl (Dulcolax) 10 mg PO BID [facility] Celecoxib (Celebrex) 200 mg PO DAILY [facility] Last Admin: 09/05/17 09:35 Dose: 200 mg Docusate Sodium (Colace) 100 mg PO BID [facility] Hydroxyzine HCl (Vistaril) 100 mg IM Q4H PRN PRN Reason: PAIN Cefoxitin Sodium 2 gm/ Sodium (Chloride) 50 mls @ 100 mls/hr IV Q6H [facility] Last Admin: 09/06/17 05:04 Dose: 100 mls/hr Admin: 09/05/17 21:48 Dose: 100 mls/hr Admin: 09/05/17 16:13 Dose: 100 mls/hr Admin: 09/05/17 10:56 Dose: 100 mls/hr Admin: 09/05/17 04:40 Dose: 100 mls/hr Admin: 09/04/17 22:09 Dose: 100 mls/hr Admin: 09/04/17 15:53 Dose: 100 mls/hr Levothyroxine Sodium 100 mcg/ (Levothyroxine Sodium 25 mcg) 125 mcg PO ACBREAKFAST [facility] Last Admin: 09/06/17 07:31 Dose: 125 mcg Admin: 09/05/17 08:32 Dose: 125 mcg Lisinopril (Prinivil) 10 mg PO DAILY [facility] Last Admin: 09/05/17 09:35 Dose: 10 mg Lorazepam (Ativan) 0.5 mg PO Q4H PRN PRN Reason: ANXIETY Lorazepam (Ativan) 0.5 mg IV Q4H PRN PRN Reason: ANXIETY Magnesium Citrate (Citrate Of Magnesia) 296 ml PO ONETIME ONE Stop: 09/06/17 09:01 Naloxone HCl (Narcan) 0.1 mg IVPUSH Q5M PRN PRN Reason: Respiratory Distress Nicotine Polacrilex (Nicorelief) 2 mg CHEW Q2H PRN PRN Reason: Other Last Admin: 09/05/17 21:50 Dose: 2 mg Verify Scop Patch 0 each TOP DAILY [facility] Last Admin: 09/05/17 09:35 Dose: Admin: 09/04/17 15:55 Dose: Ondansetron HCl (Zofran) 4 mg IVPUSH Q4H PRN PRN Reason: Nausea/Vomiting Oxycodone/Acetaminophen (Percocet 325-5 Mg) 1 - 2 tab PO Q4H PRN PRN Reason: Pain Pantoprazole Sodium (Protonix) 40 mg PO Q24H [facility] Last Admin: 09/05/17 16:13 Dose: 40 mg Paroxetine HCl (Paxil) 20 mg PO BEDTIME [facility] Last Admin: 09/05/17 21:49 Dose: 20 mg Scopolamine (Transderm-Scop) 1.5 mg TOP Q72H [facility] Stop: 09/06/17 09:00 Last Admin: 09/04/17 08:01 Dose: 1.5 mg - Assessment Assessment (Free Text/Narrative):: S/p incisional hernia repair with mesh and laparoscopic cholecystectomy - Plan Plan (Free Text/Narrative):: -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 -Percocet 325-5 mg 1-2 tabs PO q 4 hours prn for pain. -Dulcolax 10 mg PO BID. -Colace 100 mg PO BID. -Mag citrate 296 mL PO once. -Calcium carbonate (Tums) 1000 mg PO once. -May shower today. -Saline lock IV. -Encouraged ambulation and IS use.
[2017-09-06] MEDS: Lisinopril 10 MG Tab PO SCH (09:10)
[2017-09-06] MEDS: Celecoxib 200 MG Cap PO SCH (09:10)
[2017-09-06] MEDS: VERIFY SCOP PATCH TOP SCH (09:10)
[2017-09-06] MEDS: Bisacodyl 5 MG Tab PO SCH ×2 (10:06→20:31)
[2017-09-06] MEDS: Acetaminophen/oxyCODONE 325-5 MG Tab PO PRN ×4 (10:07→23:47)
[2017-09-06] MEDS: Docusate Sodium 100 MG Cap PO SCH ×2 (10:07→20:31)
[2017-09-06] MEDS ORDERED: Calcium Carbonate 500 MG Tab.Chew PO PRN (10:13)
[2017-09-06] MEDS: Pantoprazole 40 MG Tab.CR PO SCH (16:41)
[2017-09-06] MEDS: PARoxetine 20 MG Tab PO SCH (20:31)
[2017-09-07] MEDS: Acetaminophen/oxyCODONE 325-5 MG Tab PO PRN ×3 (04:00→11:53)
[2017-09-07] MEDS: cefOXitin 2 GM in Sodium Chloride 0.9% 50 ML IV SCH ×2 (04:01→11:42)
--- NOTE | 2017-09-07 07:03 | PCM.SURGPN ---
- General Info Date of Service: 09/07/17 Date of Surgery/Procedure: 09/04/17 POD#: 3 Post-Op Diagnosis: incisional hernia; biliary dyskinesia Functional Status: Reports: Tolerating Diet, Ambulating, Urinating, Incentive Spirometry - Review of Systems General: Reports: No Symptoms HEENT: Reports: No Symptoms Pulmonary: Reports: No Symptoms Cardiovascular: Reports: No Symptoms Gastrointestinal: Reports: Abdominal Pain, Other (bloating) Genitourinary: Reports: No Symptoms Musculoskeletal: Reports: No Symptoms Skin: Reports: No Symptoms Neurological: Reports: No Symptoms Psychiatric: Reports: No Symptoms - Patient Data Vitals - Most Recent: Last Vital Signs Temp 36.8 C 09/07/17 04:00 Pulse 69 09/07/17 04:00 Resp 18 09/07/17 04:00 BP 137/88 09/07/17 04:00 Pulse Ox 100 09/07/17 04:00 Weight - Most Recent: 70.08 kg I&O - Last 24 Hours: Intake & Output 09/06/17 09/06/17 09/07/17 14:59 22:59 06:59 Intake Total 0869 768 9968 Balance 6522 433 7461 Med Orders - Current: Current Medications Bisacodyl (Dulcolax) 10 mg PO BID [facility] Last Admin: 09/06/17 20:31 Dose: 10 mg Calcium Carbonate/Glycine (Tums) 1,000 mg PO Q2H PRN PRN Reason: Indigestion Last Admin: 09/06/17 10:47 Dose: 1,000 mg Celecoxib (Celebrex) 200 mg PO DAILY [facility] Last Admin: 09/06/17 09:10 Dose: 200 mg Docusate Sodium (Colace) 100 mg PO BID [facility] Last Admin: 09/06/17 20:31 Dose: 100 mg Hydroxyzine HCl (Vistaril) 100 mg IM Q4H PRN PRN Reason: PAIN Cefoxitin Sodium 2 gm/ Sodium (Chloride) 50 mls @ 100 mls/hr IV Q6H [facility] Last Admin: 09/07/17 04:01 Dose: 100 mls/hr Levothyroxine Sodium 100 mcg/ (Levothyroxine Sodium 25 mcg) 125 mcg PO ACBREAKFAST [facility] Last Admin: 09/06/17 07:31 Dose: 125 mcg Lisinopril (Prinivil) 10 mg PO DAILY [facility] Last Admin: 09/06/17 09:10 Dose: 10 mg Lorazepam (Ativan) 0.5 mg PO Q4H PRN PRN Reason: ANXIETY Lorazepam (Ativan) 0.5 mg IV Q4H PRN PRN Reason: ANXIETY Naloxone HCl (Narcan) 0.1 mg IVPUSH Q5M PRN PRN Reason: Respiratory Distress Nicotine Polacrilex (Nicorelief) 2 mg CHEW Q2H PRN PRN Reason: Other Last Admin: 09/05/17 21:50 Dose: 2 mg Verify Scop Patch 0 each TOP DAILY [facility] Last Admin: 09/06/17 09:10 Dose: Not Given Ondansetron HCl (Zofran) 4 mg IVPUSH Q4H PRN PRN Reason: Nausea/Vomiting Oxycodone/Acetaminophen (Percocet 325-5 Mg) 1 - 2 tab PO Q4H PRN PRN Reason: Pain Last Admin: 09/07/17 04:00 Dose: 2 tab Pantoprazole Sodium (Protonix) 40 mg PO Q24H [facility] Last Admin: 09/06/17 16:41 Dose: 40 mg Paroxetine HCl (Paxil) 20 mg PO BEDTIME [facility] Last Admin: 09/06/17 20:31 Dose: 20 mg Discontinued Medications Acetaminophen (Tylenol Extra Strength) 1,000 mg PO ONETIME ONE Stop: 09/04/17 07:46 Last Admin: 09/04/17 07:59 Dose: 1,000 mg Albuterol/Ipratropium (Duoneb 3.0-0.5 Mg/3 Ml) 3 ml NEB ONETIME ONE Stop: 09/04/17 08:23 Last Admin: 09/04/17 09:51 Dose: 3 ml Bupivacaine HCl/Epinephrine Bitart (Marcaine 0.5%/Epinephrine 1:200,000) Confirm Administered Dose 50 ml .ROUTE .STK-MED ONE Stop: 09/04/17 07:48 Calcium Carbonate/Glycine (Tums) 1,000 mg PO ONETIME ONE Stop: 09/06/17 02:05 Last Admin: 09/06/17 02:21 Dose: 1,000 mg Celecoxib (Celebrex) 200 mg PO ONETIME ONE Stop: 09/04/17 07:46 Last Admin: 09/04/17 08:00 Dose: 200 mg Ropivacaine 34 ml/Dexamethasone 8 mg/Epinephrine HCl 0.4 mg/ Sodium Chloride 43.6 ml 0 ml NERVRT ASDIRECTED [facility] Last Admin: 09/04/17 10:45 Dose: 2 syringe Dexamethasone (Dexamethasone) Confirm Administered Dose 4 mg .ROUTE .STK-MED ONE Stop: 09/04/17 07:12 Fentanyl (Sublimaze) Confirm Administered Dose 250 mcg .ROUTE .STK-MED ONE Stop: 09/04/17 07:12 Fentanyl (Sublimaze) Confirm Administered Dose 250 mcg .ROUTE .STK-MED ONE Stop: 09/04/17 10:49 Fentanyl (Sublimaze) Confirm Administered Dose 250 mcg .ROUTE .STK-MED ONE Stop: 09/04/17 12:22 Glycopyrrolate (Robinul) Confirm Administered Dose 1 mg .ROUTE .STK-MED ONE Stop: 09/04/17 07:12 Hydromorphone HCl (Dilaudid Chlorine Operator 15 Mg In Ns 30 Ml) 0 mg IV ASDIRECTED PRN; Protocol PRN Reason: Pain Last Admin: 09/05/17 19:35 Dose: 15 mg Dextrose/Lactated Ringer's (Dextrose 5%-Lactated Ringers) 1,000 mls @ 100 mls/ hr IV ASDIRECTED [facility] Last Admin: 09/04/17 08:38 Dose: 100 mls/hr Cefoxitin Sodium 2 gm/ Sodium (Chloride) 50 mls @ 100 mls/hr IV ONETIME ONE Stop: 09/04/17 09:29 Last Admin: 09/04/17 14:04 Dose: Not Given Linezolid (Zyvox) Confirm Administered Dose 300 mls @ as directed .ROUTE .STK- MED ONE Stop: 09/04/17 11:07 Dextrose/Lactated Ringer's (Dextrose 5%-Lactated Ringers) 1,000 mls @ 125 mls/ hr IV ASDIRECTED [facility] Last Infusion: 09/05/17 08:40 Dose: 75 mls/hr Dextrose/Lactated Ringer's (Dextrose 5%-Lactated Ringers) 1,000 mls @ 75 mls/ hr IV ASDIRECTED [facility] Last Admin: 09/05/17 21:54 Dose: 75 mls/hr Ketamine HCl (Ketalar) 30 mg IV ASDIRECTED [facility] Linezolid (Zyvox) 600 mg IRR .STK-MED ONE Stop: 09/04/17 12:46 Last Admin: 09/04/17 12:45 Dose: 600 mg Magnesium Citrate (Citrate Of Magnesia) 296 ml PO ONETIME ONE Stop: 09/06/17 09:01 Last Admin: 09/06/17 10:06 Dose: 296 ml Meropenem (Merrem) Confirm Administered Dose 500 mg .ROUTE .STK-MED ONE Stop: 09/04/17 07:49 Last Admin: 09/04/17 12:45 Dose: 500 mg Neostigmine Methylsulfate (Neostigmine) Confirm Administered Dose 5 mg .ROUTE .STK-MED ONE Stop: 09/04/17 07:12 Ondansetron HCl (Zofran) Confirm Administered Dose 4 mg .ROUTE .STK-MED ONE Stop: 09/04/17 07:12 Pantoprazole Sodium (Protonix Iv) 40 mg IVPUSH Q24H [facility] Last Admin: 09/04/17 15:56 Dose: 40 mg Paroxetine HCl (Paxil) 20 mg PO DAILY [facility] Last Admin: 09/05/17 11:03 Dose: Not Given Propofol (Diprivan 20 Ml) Confirm Administered Dose 200 mg .ROUTE .STK-MED ONE Stop: 09/04/17 07:12 Rocuronium [place] (Zemuron) Confirm Administered Dose 50 mg .ROUTE .STK-MED ONE Stop: 09/04/17 07:12 Rocuronium [place] (Zemuron) Confirm Administered Dose 50 mg .ROUTE .STK-MED ONE Stop: 09/04/17 11:26 Scopolamine (Transderm-Scop) 1.5 mg TOP Q72H [facility] Stop: 09/06/17 09:00 Last Admin: 09/04/17 08:01 Dose: 1.5 mg Succinylcholine Chloride (Quelicin) Confirm Administered Dose 200 mg .ROUTE .STK -MED ONE Stop: 09/04/17 07:12 - Exam Wound/Incisions: Dressing Dry and Intact (minimal sanguineous drainage to aquacell) General: Alert, Oriented, Cooperative, No Acute Distress HEENT: Pupils Equal, Pupils Reactive Neck: Supple, Trachea Midline Lungs: Clear to Auscultation, Normal Respiratory Effort Cardiovascular: Regular Rate, Regular Rhythm GI/Abdominal Exam: Normal Bowel Sounds, Distended, Tender (lower quadrants ) Extremities: Normal Inspection, Non-Tender Skin: Warm, Dry, Intact Neurological: No New Focal Deficit Psy/Mental Status: Alert, Normal Affect, Normal Mood - Problem List & Annotations (1) Status post hernia repair SNOMED Code(s): 69839052841352, 28021249979255 Code(s): Z98.890 - OTHER SPECIFIED POSTPROCEDURAL STATES; Z87.19 - PERSONAL HISTORY OF OTHER DISEASES OF THE DIGESTIVE SYSTEM Status: Acute Current Visit: Yes (2) Status post cholecystectomy SNOMED Code(s): 712626833, 01510467, 621480676 Code(s): Z90.49 - ACQUIRED ABSENCE OF OTHER SPECIFIED PARTS OF DIGESTIVE TRACT Status: Acute Current Visit: Yes - Problem List Review Problem List Initiated/Reviewed/Updated: Yes - My Orders Last 24 Hours: Active Orders 24 hr Category Date Time Status May Shower [RC] ASDIRECTED Care 09/06/17 08:22 Active Acetaminophen/oxyCODONE [Percocet 325-5 MG] Med 09/06/17 08:16 Active 1 - 2 tab PO Q4H PRN Bisacodyl [Dulcolax] Med 09/06/17 09:00 Active 10 mg PO BID Calcium Carbonate [Tums] Med 09/06/17 10:13 Active 1,000 mg PO Q2H PRN Docusate Sodium [Colace] Med 09/06/17 09:00 Active 100 mg PO BID Convert IV to Saline Lock [OM.PC] Routine Oth 09/06/17 08:20 Ordered Medication Orders Bisacodyl (Dulcolax) 10 mg PO BID [facility] Last Admin: 09/06/17 20:31 Dose: 10 mg Admin: 09/06/17 10:06 Dose: 10 mg Calcium Carbonate/Glycine (Tums) 1,000 mg PO Q2H PRN PRN Reason: Indigestion Last Admin: 09/06/17 10:47 Dose: 1,000 mg Celecoxib (Celebrex) 200 mg PO DAILY [facility] Last Admin: 09/06/17 09:10 Dose: 200 mg Admin: 09/05/17 09:35 Dose: 200 mg Docusate Sodium (Colace) 100 mg PO BID [facility] Last Admin: 09/06/17 20:31 Dose: 100 mg Admin: 09/06/17 10:07 Dose: 100 mg Hydroxyzine HCl (Vistaril) 100 mg IM Q4H PRN PRN Reason: PAIN Cefoxitin Sodium 2 gm/ Sodium (Chloride) 50 mls @ 100 mls/hr IV Q6H [facility] Last Admin: 09/07/17 04:01 Dose: 100 mls/hr Admin: 09/06/17 22:32 Dose: 100 mls/hr Admin: 09/06/17 16:40 Dose: 100 mls/hr Admin: 09/06/17 09:19 Dose: 100 mls/hr Admin: 09/06/17 05:04 Dose: 100 mls/hr Admin: 09/05/17 21:48 Dose: 100 mls/hr Admin: 09/05/17 16:13 Dose: 100 mls/hr Admin: 09/05/17 10:56 Dose: 100 mls/hr Admin: 09/05/17 04:40 Dose: 100 mls/hr Admin: 09/04/17 22:09 Dose: 100 mls/hr Admin: 09/04/17 15:53 Dose: 100 mls/hr Levothyroxine Sodium 100 mcg/ (Levothyroxine Sodium 25 mcg) 125 mcg PO ACBREAKFAST [facility] Last Admin: 09/06/17 07:31 Dose: 125 mcg Admin: 09/05/17 08:32 Dose: 125 mcg Lisinopril (Prinivil) 10 mg PO DAILY [facility] Last Admin: 09/06/17 09:10 Dose: 10 mg Admin: 09/05/17 09:35 Dose: 10 mg Lorazepam (Ativan) 0.5 mg PO Q4H PRN PRN Reason: ANXIETY Lorazepam (Ativan) 0.5 mg IV Q4H PRN PRN Reason: ANXIETY Naloxone HCl (Narcan) 0.1 mg IVPUSH Q5M PRN PRN Reason: Respiratory Distress Nicotine Polacrilex (Nicorelief) 2 mg CHEW Q2H PRN PRN Reason: Other Last Admin: 09/05/17 21:50 Dose: 2 mg Verify Scop Patch 0 each TOP DAILY [facility] Last Admin: 09/06/17 09:10 Dose: Admin: 09/05/17 09:35 Dose: Admin: 09/04/17 15:55 Dose: Ondansetron HCl (Zofran) 4 mg IVPUSH Q4H PRN PRN Reason: Nausea/Vomiting Oxycodone/Acetaminophen (Percocet 325-5 Mg) 1 - 2 tab PO Q4H PRN PRN Reason: Pain Last Admin: 09/07/17 04:00 Dose: 2 tab Admin: 09/06/17 23:47 Dose: 2 tab Admin: 09/06/17 19:19 Dose: 2 tab Admin: 09/06/17 15:05 Dose: 2 tab Admin: 09/06/17 10:07 Dose: 2 tab Pantoprazole Sodium (Protonix) 40 mg PO Q24H [facility] Last Admin: 09/06/17 16:41 Dose: 40 mg Admin: 09/05/17 16:13 Dose: 40 mg Paroxetine HCl (Paxil) 20 mg PO BEDTIME [facility] Last Admin: 09/06/17 20:31 Dose: 20 mg Admin: 09/05/17 21:49 Dose: 20 mg - Assessment Assessment (Free Text/Narrative):: S/p incisional hernia repair with mesh and laparoscopic cholecystectomy - Plan Plan (Free Text/Narrative):: -Magnesium citrate 296 mL PO once. -
[2017-09-07] MEDS: Levothyroxine 100 MCG, Levothyroxine 25 MCG PO SCH ×2 (07:42)
--- NOTE | 2017-09-07 07:54 | PCM.DCSUM1 ---
Discharge Summary - Hospital Course Free Text/Narrative:: Patient admitted 09/04/2017 for incisional hernia repair and cholecystectomy Brief History: Patient underwent incisional hernia repair with mesh and laparoscopic cholecystectomy on 09/04/2017. She tolerated the procedure well. Throughout her admission she had been up ambulating and tolerating her diet well. POD 3 she felt more distended and pain with minimal flatus and no BM. Dulcolax and Colace were prescribed. She had a large BM on POD 3, felt well afterwards and wanted to be discharged to home. She had minimal pain at incision sites (lower abdomen and RUQ) otherwise had no complaints on day of discharge. - Discharge Data Discharge Date: 09/07/17 Discharge Disposition: Home, Self-Care 01 Condition: Good - Discharge Diagnosis/Problem(s) (1) Status post hernia repair SNOMED Code(s): 34970190280869, [id number] ICD Code: Z98.890 - OTHER SPECIFIED POSTPROCEDURAL STATES; Z87.19 - PERSONAL HISTORY OF OTHER DISEASES OF THE DIGESTIVE SYSTEM Status: Acute Current Visit: Yes (2) Status post cholecystectomy SNOMED Code(s): 976925720, [id number], [id number] ICD Code: Z90.49 - ACQUIRED ABSENCE OF OTHER SPECIFIED PARTS OF DIGESTIVE TRACT Status: Acute Current Visit: Yes - Patient Summary/Data Consults: Consultations 09/05/17 06:47 Consult to Dietary [Consult to Field Service Specialist] [CONS] Routine Comment: Physician Instructions: Quantity: 1 Reason for Consult: follow up to duodenal switch - Patient Instructions Diet: Usual Diet as Tolerated, Drink 8-10+ Glasses/Day Activity: As Tolerated, No Lifting Over 10 Pounds (for 6 weeks ) Driving: Do Not Drive (while on pain medication) Showering/Bathing: May Shower Wound/Incision Care: Keep Operative Site/Wound Site Clean and Dry Notify Provider of: Fever, Increased Pain, Nausea and/or Vomiting Other/Special Instructions: 1. Use incentive inspirometer 10 times every hour while awake for 1 week. 2. Strip, Empty, Measure and Record LUCIANO drain 4 times a day and when half full. - Discharge Plan Prescriptions/Med Rec: Acetaminophen/oxyCODONE [Percocet 325-5 MG] 1 - 2 tab PO Q4H PRN #40 tablet PRN Reason: Pain Docusate Sodium [Colace] 100 mg PO BID #100 cap Ondansetron [Zofran ODT] 4 mg PO Q6H PRN #30 tab.dis PRN Reason: Nausea Home Medications: Home Meds Cyanocobalamin (Vitamin B-12) [Vitamin B-12] 1,000 mcg SL DAILY #100 tab.subl [Rx] Calcium Citrate/Vitamin D3 [Calcium Citrate + D] 400 - 500 mg PO BID 11/24/15 [ History] LORazepam 0.5 mg PO BID PRN 11/24/15 [History] Omeprazole 40 mg PO DAILY 11/24/15 [History] Thiamine [Vitamin B-1] 100 mg PO DAILY 03/17/16 [History] Iron,Carbonyl/Ascorbic Acid [Vitron-C Tablet] 1 each PO DAILY #30 tablet.dr [Rx] Folic Acid 2 tab PO DAILY 04/24/17 [History] Multivitamin [Kid's Vitamins Complete] 1 each PO DAILY 04/24/17 [History] Zinc 1 tab PO DAILY 04/24/17 [History] Levothyroxine Sodium [Synthroid] 1 tab PO DAILY 05/20/17 [History] Etonogestrel [Nexplanon] 68 mg SQ ASDIRECTED 07/27/17 [History] Lisinopril 10 mg PO DAILY 07/27/17 [History] PARoxetine [Paxil] 20 mg PO DAILY 07/27/17 [History] Acetaminophen/oxyCODONE [Percocet 325-5 MG] 1 - 2 tab PO Q4H PRN #40 tablet 07/23 [Rx] Docusate Sodium [Colace] 100 mg PO BID #100 cap 09/07/17 [Rx] Ondansetron [Zofran ODT] 4 mg PO Q6H PRN #30 tab.dis 09/07/17 [Rx] Referrals: Salud Pop PA-C [Physician Piece Presser] - 09/15/17 10:00 am - General Info Date of Service: 09/07/17 Subjective Update: Patient reports that after having a BM this morning she is feeling better. Pain is improved and feels less distended. She reports that she would like to go home and feels ready to. Functional Status: Reports: Pain Controlled, Tolerating Diet, Ambulating, Urinating, Incentive Spirometry - Review of Systems General: Reports: No Symptoms HEENT: Reports: No Symptoms Pulmonary: Reports: No Symptoms Cardiovascular: Reports: No Symptoms Gastrointestinal: Reports: Abdominal Pain (mild at incisional), Flatus Genitourinary: Reports: No Symptoms Musculoskeletal: Reports: No Symptoms Skin: Reports: No Symptoms Neurological: Reports: No Symptoms Psychiatric: Reports: No Symptoms - Patient Data Vitals - Most Recent: Last Vital Signs Temp 36.6 C 09/07/17 07:36 Pulse 72 09/07/17 07:36 Resp 18 09/07/17 07:36 BP 130/82 09/07/17 07:36 Pulse Ox 100 09/07/17 07:36 Weight - Most Recent: 70.08 kg I&O - Last 24 hours: Intake & Output 09/06/17 09/07/17 09/07/17 22:59 06:59 14:59 Intake Total 170 1050 Balance 170 1050 Med Orders - Current: Current Medications Bisacodyl (Dulcolax) 10 mg PO BID [facility] Last Admin: 09/06/17 20:31 Dose: 10 mg Bisacodyl (Dulcolax) 20 mg PO ONETIME ONE Stop: 09/07/17 10:01 Bisacodyl (Dulcolax) 10 mg RECTAL BID [facility] Calcium Carbonate/Glycine (Tums) 1,000 mg PO Q2H PRN PRN Reason: Indigestion Last Admin: 09/06/17 10:47 Dose: 1,000 mg Celecoxib (Celebrex) 200 mg PO DAILY [facility] Last Admin: 09/06/17 09:10 Dose: 200 mg Docusate Sodium (Colace) 100 mg PO BID [facility] Last Admin: 09/06/17 20:31 Dose: 100 mg Hydroxyzine HCl (Vistaril) 100 mg IM Q4H PRN PRN Reason: PAIN Cefoxitin Sodium 2 gm/ Sodium (Chloride) 50 mls @ 100 mls/hr IV Q6H [facility] Last Admin: 09/07/17 04:01 Dose: 100 mls/hr Levothyroxine Sodium 100 mcg/ (Levothyroxine Sodium 25 mcg) 125 mcg PO ACBREAKFAST [facility] Last Admin: 09/06/17 07:31 Dose: 125 mcg Lisinopril (Prinivil) 10 mg PO DAILY [facility] Last Admin: 09/06/17 09:10 Dose: 10 mg Lorazepam (Ativan) 0.5 mg PO Q4H PRN PRN Reason: ANXIETY Lorazepam (Ativan) 0.5 mg IV Q4H PRN PRN Reason: ANXIETY Magnesium Hydroxide (Milk Of Magnesia) 30 ml PO ONETIME ONE Stop: 09/07/17 09:01 Naloxone HCl (Narcan) 0.1 mg IVPUSH Q5M PRN PRN Reason: Respiratory Distress Nicotine Polacrilex (Nicorelief) 2 mg CHEW Q2H PRN PRN Reason: Other Last Admin: 09/05/17 21:50 Dose: 2 mg Verify Scop Patch 0 each TOP DAILY [facility] Last Admin: 09/06/17 09:10 Dose: Not Given Ondansetron HCl (Zofran) 4 mg IVPUSH Q4H PRN PRN Reason: Nausea/Vomiting Oxycodone/Acetaminophen (Percocet 325-5 Mg) 1 - 2 tab PO Q4H PRN PRN Reason: Pain Last Admin: 09/07/17 04:00 Dose: 2 tab Pantoprazole Sodium (Protonix) 40 mg PO Q24H [facility] Last Admin: 09/06/17 16:41 Dose: 40 mg Paroxetine HCl (Paxil) 20 mg PO BEDTIME [facility] Last Admin: 09/06/17 20:31 Dose: 20 mg Discontinued Medications Acetaminophen (Tylenol Extra Strength) 1,000 mg PO ONETIME ONE Stop: 09/04/17 07:46 Last Admin: 09/04/17 07:59 Dose: 1,000 mg Albuterol/Ipratropium (Duoneb 3.0-0.5 Mg/3 Ml) 3 ml NEB ONETIME ONE Stop: 09/04/17 08:23 Last Admin: 09/04/17 09:51 Dose: 3 ml Bupivacaine HCl/Epinephrine Bitart (Marcaine 0.5%/Epinephrine 1:200,000) Confirm Administered Dose 50 ml .ROUTE .STK-MED ONE Stop: 09/04/17 07:48 Calcium Carbonate/Glycine (Tums) 1,000 mg PO ONETIME ONE Stop: 09/06/17 02:05 Last Admin: 09/06/17 02:21 Dose: 1,000 mg Celecoxib (Celebrex) 200 mg PO ONETIME ONE Stop: 09/04/17 07:46 Last Admin: 09/04/17 08:00 Dose: 200 mg Ropivacaine 34 ml/Dexamethasone 8 mg/Epinephrine HCl 0.4 mg/ Sodium Chloride 43.6 ml 0 ml NERVRT ASDIRECTED [facility] Last Admin: 09/04/17 10:45 Dose: 2 syringe Dexamethasone (Dexamethasone) Confirm Administered Dose 4 mg .ROUTE .STK-MED ONE Stop: 09/04/17 07:12 Fentanyl (Sublimaze) Confirm Administered Dose 250 mcg .ROUTE .STK-MED ONE Stop: 09/04/17 07:12 Fentanyl (Sublimaze) Confirm Administered Dose 250 mcg .ROUTE .STK-MED ONE Stop: 09/04/17 10:49 Fentanyl (Sublimaze) Confirm Administered Dose 250 mcg .ROUTE .STK-MED ONE Stop: 09/04/17 12:22 Glycopyrrolate (Robinul) Confirm Administered Dose 1 mg .ROUTE .STK-MED ONE Stop: 09/04/17 07:12 Hydromorphone HCl (Dilaudid Tool Design Drafter 15 Mg In Ns 30 Ml) 0 mg IV ASDIRECTED PRN; Protocol PRN Reason: Pain Last Admin: 09/05/17 19:35 Dose: 15 mg Dextrose/Lactated Ringer's (Dextrose 5%-Lactated Ringers) 1,000 mls @ 100 mls/ hr IV ASDIRECTED [facility] Last Admin: 09/04/17 08:38 Dose: 100 mls/hr Cefoxitin Sodium 2 gm/ Sodium (Chloride) 50 mls @ 100 mls/hr IV ONETIME ONE Stop: 09/04/17 09:29 Last Admin: 09/04/17 14:04 Dose: Not Given Linezolid (Zyvox) Confirm Administered Dose 300 mls @ as directed .ROUTE .STK- MED ONE Stop: 09/04/17 11:07 Dextrose/Lactated Ringer's (Dextrose 5%-Lactated Ringers) 1,000 mls @ 125 mls/ hr IV ASDIRECTED [facility] Last Infusion: 09/05/17 08:40 Dose: 75 mls/hr Dextrose/Lactated Ringer's (Dextrose 5%-Lactated Ringers) 1,000 mls @ 75 mls/ hr IV ASDIRECTED [facility] Last Admin: 09/05/17 21:54 Dose: 75 mls/hr Ketamine HCl (Ketalar) 30 mg IV ASDIRECTED [facility] Linezolid (Zyvox) 600 mg IRR .STK-MED ONE Stop: 09/04/17 12:46 Last Admin: 09/04/17 12:45 Dose: 600 mg Magnesium Citrate (Citrate Of Magnesia) 296 ml PO ONETIME ONE Stop: 09/06/17 09:01 Last Admin: 09/06/17 10:06 Dose: 296 ml Meropenem (Merrem) Confirm Administered Dose 500 mg .ROUTE .[facility]-MED ONE Stop: 09/04/17 07:49 Last Admin: 09/04/17 12:45 Dose: 500 mg Neostigmine Methylsulfate (Neostigmine) Confirm Administered Dose 5 mg .ROUTE .[facility] ONE Stop: 09/04/17 07:12 Ondansetron HCl (Zofran) Confirm Administered Dose 4 mg .ROUTE .[facility] ONE Stop: 09/04/17 07:12 Pantoprazole Sodium (Protonix Iv) 40 mg IVPUSH Q24H [facility] Last Admin: 09/04/17 15:56 Dose: 40 mg Paroxetine HCl (Paxil) 20 mg PO DAILY [facility] Last Admin: 09/05/17 11:03 Dose: Not Given Propofol (Diprivan 20 Ml) Confirm Administered Dose 200 mg .ROUTE .[facility] ONE Stop: 09/04/17 07:12 Rocuronium [place] (Zemuron) Confirm Administered Dose 50 mg .ROUTE .[facility] ONE Stop: 09/04/17 07:12 Rocuronium [place] (Zemuron) Confirm Administered Dose 50 mg .ROUTE .[facility] ONE Stop: 09/04/17 11:26 Scopolamine (Transderm-Scop) 1.5 mg TOP Q72H [facility] Stop: 09/06/17 09:00 Last Admin: 09/04/17 08:01 Dose: 1.5 mg Succinylcholine Chloride (Quelicin) Confirm Administered Dose 200 mg .ROUTE .[facility] ONE Stop: 09/04/17 07:12 - Exam General: Reports: Alert, Oriented, Cooperative, No Acute Distress HEENT: Reports: Pupils Equal, Pupils Reactive Neck: Reports: Supple, Trachea Midline Lungs: Reports: Clear to Auscultation, Normal Respiratory Effort Cardiovascular: Reports: Regular Rate, Regular Rhythm GI/Abdominal Exam: Normal Bowel Sounds, Soft, Tender (lower abdominal area and RUQ; near incisions), Other (distention improved) (Female) Exam: Deferred Rectal (Female) Exam: Deferred Back Exam: Reports: Normal Inspection, Full Range of Motion Extremities: Normal Inspection, No Pedal Edema Skin: Reports: Warm, Dry, Intact Wound/Incisions: Reports: Healing Well, No Drainage, Other (aquacell removed prior to discharge) Neurological: Reports: No New Focal Deficit Psy/Mental Status: Reports: Alert, Normal Affect, Normal Mood Discharge Operative/Procedures - Procedures Performed Operations: 09/04/2017 incisional hernia repair with mesh and laparoscopic norma
[2017-09-07] MEDS ORDERED: Bisacodyl 10 MG Supp RECTAL SCH (09:00)
[2017-09-07] MEDS ORDERED: Magnesium Hydroxide 400 MG/5 ML Susp 30 ML Cup PO ONE (09:00)
[2017-09-07] MEDS: Celecoxib 200 MG Cap PO SCH (09:03)
[2017-09-07] MEDS: Docusate Sodium 100 MG Cap PO SCH (09:05)
[2017-09-07] MEDS: Lisinopril 10 MG Tab PO SCH (09:05)
[2017-09-07] MEDS: VERIFY SCOP PATCH TOP SCH (09:06)
[2017-09-07] MEDS: Bisacodyl 5 MG Tab PO SCH ×2 (09:07→09:08)
[2017-09-07] MEDS ORDERED: Bisacodyl 5 MG Tab PO ONE (10:00)
[2017-09-07 11:43] VITALS: BP 118/65
--- NOTE | 2017-09-13 17:25 | OR ---
DATE OF PROCEDURE: 09/04/2017 PREOPERATIVE DIAGNOSES: 1. Recurrent incarcerated incisional hernia. 2. Painful contracted scar, mid abdomen involving the umbilicus and lower abdomen. 3. Chronic cholecystitis and cholelithiasis. POSTOPERATIVE DIAGNOSES: 1. Recurrent incarcerated incisional hernia. 2. Painful contracted scar, mid abdomen involving the umbilicus and lower abdomen. 3. Chronic cholecystitis and cholelithiasis. 4. Extensive intra-abdominal adhesions. OPERATIVE PROCEDURE: 1. Open laparotomy with. a. Revision of a painful contracted mid and lower abdominal scar including umbilectomy (77386, [id number], 97893). b. Repair of recurrent incarcerated incisional hernia with mesh (06852, 53323). c. Placement of Interceed mesh to displace pelvic and abdominal wall from underlying viscera to limit recurrent adhesion formation (99002). 2. Diagnostic laparoscopy with laparoscopic cholecystectomy (73937). ANESTHESIA: General. ASSISTANTS: Salud Pop PA-C and LIANA Maldonado. INDICATIONS FOR THE PROCEDURE: This is a 32-year-old presenting with a recurrent incisional hernia along with chronic cholecystitis and cholelithiasis with recurrent biliary colic. The patient has a previous periumbilical incision which has resulted in thinned-out contracted scar around the umbilicus. The plan is to proceed with excision of that scar to allow a more adequate closure and then repair of the recurrent incisional hernia which was located more or less just to the left of the umbilicus. The patient also has chronic cholecystitis and cholelithiasis. If it is feasible, we will proceed with a cholecystectomy through the lower and mid abdominal incision. If that requires extensive excision of this, we would likely close that and then separately perform a laparoscopy for the cholecystectomy phase as well as to avoid an extensive abdominal incision. The potential risks of the procedure including bleeding, infection, injury to underlying viscera, problems with the stones migrating into the common bile duct requiring additional procedures, also the mesh becoming infected, recurrence of hernia once again, as well as possibility of cardiopulmonary, septic, or hemorrhagic complications leading to were discussed, and the patient wishes to proceed. DETAILS OF PROCEDURE: The patient was taken to the operating room. After general endotracheal anesthesia was induced, bilateral transverse abdominis plane blocks were placed affecting the mid abdomen. This was done with continuous ultrasound guidance and injection with standard solution. At this point, a transversely-oriented incision centered around the umbilicus was made and carried down through the skin and subcutaneous tissue. The underlying scar was then excised down to the level of fascia. As one approached the umbilicus, this was excised as this was intimately involved with the scar as well, and at that point, the peritoneal cavity was entered as the hernia presented more or less just to the left of the umbilicus, and the incision was taken across the midline on the left side, removing some of the overlying skin fat in that area as well. The specimen from the umbilicus and contracted scar was then delivered from the field. At that point, there were quite extensive adhesions between the small bowel, abdomen, and pelvic wall. These were taken down with a combination of blunt and sharp dissection. At that point, the area of the herniation was well delineated and an oval Ventrio ST hernia patch was selected, measuring 11 cm x 14 cm at roughly 4-5 cm intervals along its circumference; 2-0 Vicryl sutures were placed on the polypropylene side of the mesh and then a small stab wound was made in the abdominal wall where the suture will be pulled up. This would be thus fixing this mesh with the long axis in transverse orientation. Once the mesh was fixed with the sutures, it was soaked in antibiotic- containing saline solution, and the left side of the mesh was then placed in intraperitoneal location where the sutures were then pulled up to limit recurrent adhesion formation. Interceed mesh was then placed at that point from the pelvic wall posterior to the bladder along the pelvic sidewalls and up against the abdominal wall and underneath the area of the mesh formation to limit additional adhesion formation. The remainder of the sutures were then pulled up, thus fixing the mesh in position and the underlying shelf of the mesh was then affixed with titanium tacking screws as well. The fascia was then approximated over this with a #2 Vicryl stitch. Subcutaneous tissue approximated with 2 layers of 3-0 Vicryl stitch and the skin with tia. At the time of the open abdominal exploration, it was evident that to safely perform a cholecystectomy, a quite substantial upper extension of the open incision would be required. It was felt the best to remove the gallbladder via laparoscopic approach. The skin had been marked out such that the camera port could be brought and just superior to the upper edge of the mesh. A transverse incision was made at that area and the port then placed under direct vision with an Optiview trocar. The peritoneal cavity was inflated to 15 mmHg pressure of CO2. One additional 12-mm epigastric port and then a 5-mm right abdominal trocar were then placed and the upper abdomen examined. The gallbladder was noted to be quite edematous and friable. It was retracted anteriorly and laterally. Some omental adhesions to gallbladder were taken down with Harmonic scalpel and dissection continued down to the gallbladder neck onto the gallbladder neck-cystic duct junction. Once that area was well delineated, as was the adjacent cystic artery, both structures were clipped 3 times proximally, once distally, and divided. The gallbladder was then dissected off the gallbladder bed using Harmonic scalpel, delivered through the epigastric trocar site. The gallbladder did not appear to be grossly infected and contained numerous small stones. The area of dissection was inspected. The Tao-Davis drain was taken out through the right lateral trocar site and positioned into the area of the gallbladder fossa with no further problems noted. Trocars were removed. The fascia at the 12-mm sites was closed with 0 Vicryl stitch, and the skin was closed with skin tia as per the area of the incisional hernia repair. The drains were affixed with a 3-0 Vicryl stitch. The patient was taken to the recovery room in satisfactory condition. Physician information services assistant, Salud Pop, played an essential role in assisting in this case, helping to position the patient, retract structures as needed, as well as suturing and cutting sutures when indicated. Her presence improved patient safety and decreased operative time. Neftaly Donato MD /[id number]
== END 2017-09-07 14:00 | disposition home or self-care (01) | DRG 336 ==
LOC: JP.SDS 07:32 → JP.SDSSCHI 07:32 → EDSTATUS 12:45 → JP.2SS 13:15
PROVIDERS: ADMIT Surgery; ATTEND Surgery
PROC: 0DNW0ZZ Release Peritoneum, Open Approach (ICD-10-PCS; principal; 2017-09-04)
PROC: 0WUF0JZ Supplement Abdominal Wall with Synthetic Substitute, Open Approach (ICD-10-PCS; 2017-09-04)
PROC: 0FT44ZZ Resection of Gallbladder, Percutaneous Endoscopic Approach (ICD-10-PCS; 2017-09-04)
PROC: 0DN80ZZ Release Small Intestine, Open Approach (ICD-10-PCS; 2017-09-04)
PROC: 0DNU0ZZ Release Omentum, Open Approach (ICD-10-PCS; 2017-09-04)
PROC: 0WJG0ZZ Inspection of Peritoneal Cavity, Open Approach (ICD-10-PCS; 2017-09-04)
PROC: 0WBF0ZX Excision of Abdominal Wall, Open Approach, Diagnostic (ICD-10-PCS; 2017-09-04)
PROC: 3E0T3BZ Introduction of Anesthetic Agent into Peripheral Nerves and Plexi, Percutaneous Approach (ICD-10-PCS; 2017-09-04)
PROC: 0HB7XZZ Excision of Abdomen Skin, External Approach (ICD-10-PCS; 2017-09-04)
DX: K43.0 Incisional hernia with obstruction, without gangrene (principal); K80.10 Calculus of gallbladder with chronic cholecystitis without obstruction; L90.5 Scar conditions and fibrosis of skin; K66.0 Peritoneal adhesions (postprocedural) (postinfection); I10 Essential (primary) hypertension; F17.210 Nicotine dependence, cigarettes, uncomplicated; Z98.84 Bariatric surgery status; K21.9 Gastro-esophageal reflux disease without esophagitis; F32.9 Major depressive disorder, single episode, unspecified; F41.9 Anxiety disorder, unspecified; F43.10 Post-traumatic stress disorder, unspecified; E53.8 Deficiency of other specified B group vitamins; H54.7 Unspecified visual loss; Z86.32 Personal history of gestational diabetes; Z91.048 Other nonmedicinal substance allergy status; Z91.09 Other allergy status, other than to drugs and biological substances
CPT/HCPCS: 36415; 81025; 82247; 84075; 85027; 88302; 88304; 94762; A9270-GY; C1781; C9113; J0171; J0330; J0694; J1100; J1170; J2020; J2185; J2405; J2704; J2710; J2795; J3010; J7042; J7050; J7620

== ENCOUNTER 2017-09-10 14:08 | Inpatient (IN) | payer MEDICAID ==
--- NOTE | 2017-09-10 14:45 | EDM.PDOC ---
ED HPI GENERAL MEDICAL PROBLEM - General Chief Complaint: Gastrointestinal Problem Stated Complaint: VOMITTING Time Seen by Provider: 09/10/17 14:45 Source of Information: Reports: Patient History Limitations: Reports: No Limitations - History of Present Illness INITIAL COMMENTS - FREE TEXT/NARRATIVE: Pt had her gb removed on on Monday. She had a belly flap done. She is not doing well in that she has had 2 days of vomiting. She is also having a fair amount of pain in the rt upper quadrant. Sh is usint 2 percocet every 4 hours. Onset: Gradual, Other ( She was discharged on . ) Duration: Day(s): Location: Reports: Abdomen Associated Symptoms: Reports: Nausea/Vomiting, Weakness Abdominal Pain Score (Numeric/FACES): 7 - Related Data Allergies Allergy/AdvReac Type Severity Reaction Status Date / Time iron [From Venofer] Allergy Hives Verified 07/10/17 12:39 seasonal Allergy Cannot Uncoded 07/10/17 12:39 Remember Home Meds: Home Meds Cyanocobalamin (Vitamin B-12) [Vitamin B-12] 1,000 mcg SL DAILY #100 tab.subl [Rx] Calcium Citrate/Vitamin D3 [Calcium Citrate + D] 400 - 500 mg PO BID 11/24/15 [ History] LORazepam 0.5 mg PO BID PRN 11/24/15 [History] Omeprazole 40 mg PO DAILY 11/24/15 [History] Thiamine [Vitamin B-1] 100 mg PO DAILY 03/17/16 [History] Iron,Carbonyl/Ascorbic Acid [Vitron-C Tablet] 1 each PO DAILY #30 tablet.dr [Rx] Folic Acid 2 tab PO DAILY 04/24/17 [History] Multivitamin [Kid's Vitamins Complete] 1 each PO DAILY 04/24/17 [History] Zinc 1 tab PO DAILY 04/24/17 [History] Levothyroxine Sodium [Synthroid] 1 tab PO DAILY 05/20/17 [History] Etonogestrel [Nexplanon] 68 mg SQ ASDIRECTED 07/27/17 [History] Lisinopril 10 mg PO DAILY 07/27/17 [History] PARoxetine [Paxil] 20 mg PO DAILY 07/27/17 [History] Acetaminophen/oxyCODONE [Percocet 325-5 MG] 1 - 2 tab PO Q4H PRN #40 tablet 07/23 [Rx] Docusate Sodium [Colace] 100 mg PO BID #100 cap 09/07/17 [Rx] Ondansetron [Zofran ODT] 4 mg PO Q6H PRN #30 tab.dis 09/07/17 [Rx] Past Medical History HEENT History: Reports: Allergic Rhinitis, Impaired Vision Cardiovascular History: Reports: Hypertension Respiratory History: Reports: None Gastrointestinal History: Reports: GERD Genitourinary History: Reports: None REGIONAL LIAISON History: Reports: , Spontaneous Musculoskeletal History: Reports: Fracture Neurological History: Reports: Concussion, Head Trauma Psychiatric History: Reports: Anxiety, Depression, PTSD Endocrine/Metabolic History: Reports: Diabetes, Gestational Hematologic History: Reports: B12 Deficiency, Iron Deficiency Immunologic History: Reports: None Oncologic (Cancer) History: Reports: None Dermatologic History: Reports: Other (See Below) Other Dermatologic History: panniculectomy - Infectious Disease History Infectious Disease History: Reports: Chicken Pox - Past Surgical History HEENT Surgical History: Reports: None Cardiovascular Surgical History: Reports: None Respiratory Surgical History: Reports: None GI Surgical History: Reports: Bariatric Procedure, Cholecystectomy, Hernia, Abdominal, Hernia Repair/Other Female Surgical History: Reports: Section, D&C Musculoskeletal Surgical History: Reports: None Social & Family History - Family History Family Medical History: Noncontributory HEENT: Reports: Hearing Impairment, Impaired Vision, Otitis Media, Sinusitis Cardiac: Reports: Bypass, CAD, [place] Respiratory: Reports: None GI: Reports: None : Reports: None OBGYN: Reports: None Musculoskeletal: Reports: None Neurological: Reports: Alzheimers Disease, Dementia Psychiatric: Reports: Depression Endocrine/Metabolic: Reports: Diabetes, type II Hematologic: Reports: None Immunologic: Reports: None Dermatologic: Reports: None Oncologic: Reports: None - Tobacco Use Smoking Status *Q: Light Tobacco Smoker Years of Tobacco use: 5 Packs/Tins Daily: 0.2 Used Tobacco, but Quit: No Month/Year Tobacco Last Used: MARCH Second Hand Smoke Exposure: No - Caffeine Use Caffeine Use: Reports: Coffee - Alcohol Use Days Per Week of Alcohol Use: 0 Number of Drinks Per Day: 5 Total Drinks Per Week: 0 - Recreational Drug Use Recreational Drug Use: No ED ROS GENERAL - Review of Systems Review Of Systems: See Below Constitutional: Reports: No Symptoms HEENT: Reports: No Symptoms Respiratory: Reports: No Symptoms Cardiovascular: Reports: No Symptoms Endocrine: Reports: No Symptoms GI/Abdominal: Reports: Abdominal Pain, Nausea, Vomiting : Reports: No Symptoms Musculoskeletal: Reports: No Symptoms Skin: Reports: No Symptoms ED EXAM, GI/ABD - Physical Exam Exam: See Below Text/Narrative:: pt arrived with pain in the rt upper quadrant. She has has some vomiting. She is using alot of percocet. Exam Limited By: No Limitations General Appearance: Alert, Anxious, Moderate Distress Ears: Normal External Exam Nose: Normal Inspection Throat/Mouth: Normal Inspection Head: Atraumatic Neck: Normal Inspection Respiratory/Chest: No Respiratory Distress Cardiovascular: Regular Rate, Rhythm GI/Abdominal Exam: Other ( wounds look good. She has tendernss and pain in the rt upper quadrant. ) (Female) Exam: Deferred Rectal (Female) Exam: Deferred Back Exam: Normal Inspection Extremities: Normal Inspection Neurological: Alert, Oriented, Normal Cognition Course - Vital Signs Last Recorded V/S: Last Vital Signs Temp 37.2 C 09/10/17 14:22 Pulse 85 09/10/17 14:22 Resp 16 09/10/17 14:22 BP 138/86 09/10/17 14:22 Pulse Ox 99 09/10/17 14:22 - Orders/Labs/Meds Orders: Active Orders 24 hr Category Date Time Status Abdomen Ltd [US] Stat Exams 09/10/17 14:45 Taken UA W/MICROSCOPIC [URIN] Urgent Lab 09/10/17 17:08 Ordered HYDROmorphone [Dilaudid] Med 09/10/17 17:16 Once 0.5 mg IVPUSH ONETIME ONE Medication Orders Hydromorphone HCl (Dilaudid) 0.5 mg IVPUSH ONETIME ONE Stop: 09/10/17 17:17 Labs: Laboratory Tests 09/10/17 09/10/17 09/10/17 Range/Units 14:55 14:55 14:55 WBC 5.8 (4.5-11.0) K/uL RBC 3.77 (3.30-5.50) M/uL Hgb 10.6 L (12.0-15.0) g/dL Hct 32.9 L (36.0-48.0) % MCV 87 (80-98) fL MCH 28 (27-31) pg MCHC 32 (32-36) % Plt Count 284 (150-400) K/uL Neut % (Auto) 66 (36-66) % Lymph % (Auto) 25 (24-44) % [place] % (Auto) 7 H (2-6) % Eos % (Auto) 2 (2-4) % Baso % (Auto) 0 (0-1) % Sodium 140 (140-148) mmol/L Potassium 4.0 (3.6-5.2) mmol/L Chloride 105 (100-108) mmol/L Carbon Dioxide 30 (21-32) mmol/L Anion Gap 5.1 (5.0-14.0) mmol/L BUN 8 (7-18) mg/dL Creatinine 0.8 (0.6-1.0) mg/dL Est Cr Clr Drug Dosing 96.36 mL/min Estimated GFR (MDRD) > 60 (>60) Glucose 90 (74-106) mg/dL Calcium 8.2 L (8.5-10.1) mg/dL Total Bilirubin 0.3 (0.2-1.0) mg/dL AST 51 H (15-37) U/L ALT 95 H (12-78) U/L Alkaline Phosphatase 280 H D (46-116) U/L Total Protein 6.5 (6.4-8.2) g/dL Albumin 2.7 L (3.4-5.0) g/dL Globulin 3.8 H (2.3-3.5) g/dL Albumin/Globulin Ratio 0.7 L (1.2-2.2) Lipase 61 L (73-393) U/L Urine Color Urine Appearance Urine pH (4.5-8.0) Ur Specific [place] (1.008-1.030) Urine Protein (NEGATIVE) mg/dL Urine Glucose (UA) (NEGATIVE) mg/dL Urine Ketones (NEGATIVE) mg/dL Urine Occult Blood (NEGATIVE) Urine Nitrite (NEGATIVE) Urine Bilirubin (NEGATIVE) Urine Urobilinogen (NORMAL) mg/dL Ur Leukocyte Esterase (NEGATIVE) Urine RBC (0-5) Urine WBC (0-5) Ur Epithelial Cells Amorphous Sediment Urine Bacteria Urine Mucus 09/10/17 Range/Units 17:08 WBC (4.5-11.0) K/uL RBC (3.30-5.50) M/uL Hgb (12.0-15.0) g/dL Hct (36.0-48.0) % MCV (80-98) fL MCH (27-31) pg MCHC (32-36) % Plt Count (150-400) K/uL Neut % (Auto) (36-66) % Lymph % (Auto) (24-44) % [place] % (Auto) (2-6) % Eos % (Auto) (2-4) % Baso % (Auto) (0-1) % Sodium (140-148) mmol/L Potassium (3.6-5.2) mmol/L Chloride (100-108) mmol/L Carbon Dioxide (21-32) mmol/L Anion Gap (5.0-14.0) mmol/L BUN (7-18) mg/dL Creatinine (0.6-1.0) mg/dL Est Cr Clr Drug Dosing mL/min Estimated GFR (MDRD) (>60) Glucose (74-106) mg/dL Calcium (8.5-10.1) mg/dL Total Bilirubin (0.2-1.0) mg/dL AST (15-37) U/L ALT (12-78) U/L Alkaline Phosphatase (46-116) U/L Total Protein (6.4-8.2) g/dL Albumin (3.4-5.0) g/dL Globulin (2.3-3.5) g/dL Albumin/Globulin Ratio (1.2-2.2) Lipase (73-393) U/L Urine Color Yellow Urine Appearance Clear Urine pH 8.0 (4.5-8.0) Ur Specific [place] 1.010 (1.008-1.030) Urine Protein Negative (NEGATIVE) mg/dL Urine Glucose (UA) Normal (NEGATIVE) mg/dL Urine Ketones Negative (NEGATIVE) mg/dL Urine Occult Blood Negative (NEGATIVE) Urine Nitrite Negative (NEGATIVE) Urine Bilirubin Negative (NEGATIVE) Urine Urobilinogen Normal (NORMAL) mg/dL Ur Leukocyte Esterase Negative (NEGATIVE) Urine RBC 0-5 (0-5) Urine WBC 0-5 (0-5) Ur Epithelial Cells Few Amorphous Sediment Not seen Urine Bacteria Not seen Urine Mucus Not seen Meds: Medications Generic Name Dose Route Start Last Admin Trade Name Freq PRN Reason Stop Dose Admin Hydromorphone HCl 0.5 mg 09/10/17 17:16 Dilaudid IVPUSH 09/10/17 17:17 ONETIME ONE Discontinued Medications Generic Name Dose Route Start Last Admin Trade Name Tri PRN Reason Stop Dose Admin Hydromorphone HCl 0.5 mg 09/10/17 15:37 09/10/17 15:46 Dilaudid IVPUSH 09/10/17 15:38 0.5 mg ONETIME ONE Administration - Re-Assessments/Exams Free Text/Narrative Re-Assessment/Exam: 09/10/17 17:17 pt had an US of he upper abdoman which shows a big pool of fluid in the gb bed and further down around the rt kidney. The common duct is wide at .9. 09/10/17 17:18 pt has mild elevation of the liver enzymes. Her alk phos is 280. 09/10/17 17:29 dr Donato was consulted and he wanted pt admitted with these findings. Departure - Departure Time of Disposition: 17:29 Disposition: Admitted As Inpatient 64 Condition: Fair Clinical Impression: History of cholecystectomy, Fluid collection at surgical site - Discharge Information Referrals: Jennifer Dunham CNM [Primary Care Provider] - Forms: ED Department Discharge Care Plan Goals: admit to Dr Donato. - My Orders Last 24 Hours: My Active Orders 09/10/17 14:45 Abdomen Ltd [US] Stat 09/10/17 17:08 UA W/MICROSCOPIC [URIN] Urgent 09/10/17 17:16 HYDROmorphone [Dilaudid] 0.5 mg IVPUSH ONETIME ONE - Assessment/Plan Last 24 Hours: My Active Orders 09/10/17 14:45 Abdomen Ltd [US] Stat 09/10/17 17:08 UA W/MICROSCOPIC [URIN] Urgent 09/10/17 17:16 HYDROmorphone [Dilaudid] 0.5 mg IVPUSH ONETIME ONE
[2017-09-10] MEDS ORDERED: HYDROmorphone 0.5 MG/0.5 ML Syringe IVPUSH ONE ×2 (15:37→17:16)
[2017-09-10] MEDS ORDERED: HYDROmorphone/Normal Saline 15 MG/30 ML PCA IV SCH (17:25)
[2017-09-10] MEDS ORDERED: Naloxone 0.4 MG/ML SDV IV PRN (19:01)
[2017-09-10] MEDS ORDERED: Ondansetron 4 MG/2 ML SDV IV PRN (19:02)
[2017-09-11] MEDS: Dextrose 5%-Lactated Ringers 1,000 ML IV SCH ×2 (02:55→10:22)
[2017-09-11] MEDS ORDERED: Rocuronium 50 MG/5 ML Vial ONE (09:14)
[2017-09-11] MEDS ORDERED: Succinylcholine 200 MG/10 ML MDV ONE (09:14)
[2017-09-11] MEDS ORDERED: Neostigmine Methylsulfate 1 MG/ML 5 ML Syringe ONE (09:14)
[2017-09-11] MEDS ORDERED: Dexamethasone 4 MG/ML SDV ONE (09:14)
[2017-09-11] MEDS ORDERED: Glycopyrrolate 0.2 MG/ML 5 ML MDV ONE (09:14)
[2017-09-11] MEDS ORDERED: Ondansetron 4 MG/2 ML SDV ONE (09:14)
[2017-09-11] MEDS ORDERED: Propofol 200 MG/20 ML SDV ONE ×2 (09:14→11:48)
[2017-09-11] MEDS ORDERED: fentaNYL 250 MCG/5 ML SDV ONE (09:14)
[2017-09-11] MEDS ORDERED: Bupivacaine 0.5%/EPINEPHrine 1:200,000 50 ML MDV ONE (10:06)
[2017-09-11] MEDS ORDERED: Meropenem 500 MG SDV ONE (10:06)
[2017-09-11] MEDS: HYDROmorphone/Normal Saline 15 MG/30 ML PCA IV PRN ×2 (10:21→23:00)
[2017-09-11] MEDS ORDERED: fentaNYL 100 MCG/2 ML SDV ONE (11:27)
[2017-09-11] MEDS ORDERED: Ropivacaine 34 ML, Dexamethasone 8 MG, EPINEPHrine 0.4 MG, Sodium Chloride 0.9% 43.6 ML NERVRT SCH ×4 (12:00)
[2017-09-11] MEDS ORDERED: Ketamine 500 MG/5 ML MDV IV SCH (12:00)
[2017-09-11] MEDS ORDERED: Ampicillin/Sulbactam Na 3 GM in Sodium Chloride 0.9% 100 ML IV ONE (12:00)
[2017-09-11] MEDS ORDERED: Dextrose 5%-Lactated Ringers 1,000 ML IV SCH (13:30)
[2017-09-11] MEDS ORDERED: Acetaminophen/HYDROcodone 325-5 MG Tab PO PRN (14:00)
[2017-09-11] MEDS ORDERED: Ondansetron 4 MG/2 ML SDV IVPUSH PRN (14:00)
[2017-09-11] MEDS: Ampicillin/Sulbactam Na 3 GM in Sodium Chloride 0.9% 100 ML IV SCH ×2 (17:00→23:00)
[2017-09-11] MEDS: Pantoprazole 40 MG Vial IVPUSH SCH (17:36)
[2017-09-11] MEDS: Docusate Sodium 100 MG Cap PO SCH (21:00)
[2017-09-12] MEDS: Ampicillin/Sulbactam Na 3 GM in Sodium Chloride 0.9% 100 ML IV SCH ×5 (04:20→22:04)
[2017-09-12] MEDS: Pantoprazole 40 MG Vial IVPUSH SCH (04:20)
[2017-09-12] MEDS: Docusate Sodium 100 MG Cap PO SCH ×3 (04:20→22:00)
[2017-09-12] MEDS: Levothyroxine 100 MCG, Levothyroxine 25 MCG PO SCH ×2 (07:40)
[2017-09-12] MEDS: HYDROmorphone/Normal Saline 15 MG/30 ML PCA IV PRN ×2 (09:25→18:56)
[2017-09-12] MEDS: PARoxetine 20 MG Tab PO SCH (09:34)
[2017-09-12] MEDS: Lisinopril 10 MG Tab PO SCH (09:35)
--- NOTE | 2017-09-12 09:56 | PN ---
DATE OF SERVICE: 09/12/2017 SUBJECTIVE: Yane is postop day #1. She states her pain is controlled. Vital signs have been stable. Oral intake 1500. LUCIANO drain #1 put out 215 mL of light bilious substance and LUCIANO drain #2 put out 285 of bile-colored drainage. She has been ambulating. REVIEW OF SYSTEMS: Remainder of review of systems negative for any pertinent positives and negatives. OBJECTIVE: GENERAL: Yane Cabral is a 32-year-old female, alert and orientated, lying in bed. VITAL SIGNS: TPR is 97.9, 70, 18, blood pressure 121/65. HEENT: Negative. NECK: Supple. HEART: Regular rate and rhythm. LUNGS: Clear. ABDOMEN: Abdominal binder is on. Sutures intact. Dressing was changed around the LUCIANO drains twice. It is dry now. LUCIANO drains as above. EXTREMITIES: SCDs are on and there is no peripheral edema. ASSESSMENT: Diagnostic laparotomy with drainage of bile, peritonitis, and closure of bile leak for postop bile leak cystic duct stump. Date of surgery 09/11/2017. Surgeon is Neftaly Donato MD. PLAN: 1. Decrease IV to 60 mL per hour. 2. Continue to empty LUCIANO drains q.i.d. but change in order would be to empty the LUCIANO drains when one-third full. 3. Incentive spirometer. The patient does not have one as ordered postoperatively on 09/11/2017. She is to get an incentive spirometer and she use this 10 times every hour while awake per Dr. Neftaly Donato's order. 4. Dressing off, may shower. 5. Discontinue straws as the patient is status post duodenal switch bariatric surgery. 6. Continue DANCING MASTER. 7. Good pulmonary toilet and ambulation. The patient is a cigarette smoker. 8. We will evaluate p.r.n. or in a.m. Salud Pop PA-C /[id number]
[2017-09-12] MEDS: Dextrose 5%-Lactated Ringers 1,000 ML IV SCH (10:36)
--- NOTE | 2017-09-12 11:13 | PN ---
DATE OF SERVICE: 09/11/2017 The patient was admitted yesterday afternoon with increasing discomfort in the right upper quadrant. She had an ultrasound and was noted to have some fluid in that area. There was some suspicion that there might be a bile leak with the recent cholecystectomy. It is notable, however, that her bilirubin both yesterday and this morning is 0.3, which would make the bile leak relatively unlikely, but should be some inflammatory fluid in that area. Plan will be to proceed with diagnostic laparoscopy and drainage of fluid and other procedures as indicated. We will do this with a general anesthetic plus a tap block and intraoperative ketamine. Potential risks of the procedure were reviewed with the patient, and she wishes to proceed. Surgery will be undertaken later this morning. Neftaly Donato MD /[id number]
[2017-09-12] MEDS ORDERED: Pantoprazole 40 MG Tab.CR PO SCH (16:00)
[2017-09-13] MEDS: Ampicillin/Sulbactam Na 3 GM in Sodium Chloride 0.9% 100 ML IV SCH ×2 (04:59→12:26)
[2017-09-13] MEDS: Dextrose 5%-Lactated Ringers 1,000 ML IV SCH (04:59)
[2017-09-13] MEDS ORDERED: Ondansetron 4 MG Tab.DIS PO PRN (07:16)
[2017-09-13] MEDS: Levothyroxine 100 MCG, Levothyroxine 25 MCG PO SCH ×2 (07:39)
[2017-09-13] MEDS: PARoxetine 20 MG Tab PO SCH (09:17)
[2017-09-13] MEDS: Docusate Sodium 100 MG Cap PO SCH (09:17)
[2017-09-13] MEDS: Acetaminophen/oxyCODONE 325-5 MG Tab PO PRN ×2 (09:18→13:30)
[2017-09-13] MEDS: Lisinopril 10 MG Tab PO SCH (09:18)
--- NOTE | 2017-09-13 10:58 | DISCH ---
ADMISSION DIAGNOSES: Bile leak, status post cholecystectomy, status post duodenal switch, unspecified surgical malabsorption, B12 deficiency, nausea, vomiting, anxiety, depression, posttraumatic stress disorder, and iron deficiency anemia. DISCHARGE DIAGNOSES: Diagnostic laparotomy, drainage of bile peritonitis, and closure of bile leak for postop bile leak cystic duct stump. Date of surgery, 09/11/2017. Surgeon, Neftaly Donato MD. HISTORY: Yane Cabral is a 32-year-old female, status post cholecystectomy, presented to the emergency room on 09/10/2017 with severe abdominal pain, nausea, and vomiting. After preoperative evaluation and discussion of possible risks and possible complications, she wished to proceed with surgical procedure. HOSPITAL COURSE: Yane had her surgery on 09/11/2017. She had no operative complications. On postop day #1, she continued with MILK VENDOR. She tolerated her diet well and was started on incentive spirometer. On postop day #2, her pain was well managed. She was changed to oral pain medication. Her vital signs were stable. Her LUCIANO drain lightened up to a light dinero clear drainage. Activity good, tolerated diet well, had 2 bowel movements, and was able to be discharged to home. PHYSICAL EXAMINATION: GENERAL: Yane Cabral is a 32-year-old female. VITAL SIGNS: Height is 5 feet 6.9 inches. Weight is 151 pounds. TPR is 97.8, 73, 18, and blood pressure 135/83. HEENT: Negative. NECK: Supple. HEART: Regular rate and rhythm. LUNGS: Clear. ABDOMEN: Incisions look good, healing well, and tia intact. Two LUCIANO drains intact with one LUCIANO draining 15 and LUCIANO #2 drained 220. Abdominal binder has been on. EXTREMITIES: Without peripheral edema. DISPOSITION: Discharged to home. CONDITION: Stable and improving. FOLLOWUP APPOINTMENT: With Salud Pop PA-C, on 09/15/2017, for already scheduled appointment DISCHARGE MEDICATIONS: New prescriptions, percocet 5/325 mg 1 to 2 every 4 hours p.r.n. pain, #40. She is to resume her home medications of; 1. Calcium supplement b.i.d. 2. Vitamin B12 1000 mcg sublingual daily. 3. Colace 100 mg twice daily. 4. Nexplanon. 5. Folic acid 2 tabs daily. 6. Vitron-C 1 oral daily. 7. Lorazepam 0.5 mg oral twice daily. 8. Synthroid 1 tablet oral daily. 9. Lisinopril 10 mg oral daily. 10.Multivitamin chewable b.i.d. 11.Omeprazole 40 mg daily. 12.Zofran ODT 4 mg every 6 hours p.r.n. nausea. 13.Paxil 20 mg oral daily. 14.Thiamine 100 mg daily. 15.Zinc one tablet oral daily. DIET: Usual diet as tolerated. Drink 8 to 10 glasses of water a day. ACTIVITY: No lifting greater than 10 pounds for 6 weeks[address] Driving, do not drive while on pain medication. Shower/bathing, may shower. DISCHARGE INSTRUCTIONS: Notify provider of fever, increased pain, nausea, or vomiting. Keep site clean and dry. Special instructions; strip, empty, measure, and record LUCIANO drain 4 times a day and when half full. Bring record of LUCIANO drainage to clinic appointment. Use incentive spirometer 10 times every hour while awake for 1 week.
[2017-09-13 11:13] VITALS: BP 129/71
--- NOTE | 2017-09-18 10:41 | OR ---
DATE OF PROCEDURE: 09/11/2017 PREOPERATIVE DIAGNOSIS: Right upper quadrant pain, status post recent cholecystectomy. POSTOPERATIVE DIAGNOSIS: Bile leak associated with right upper quadrant focal bile peritonitis. PROCEDURES: Diagnostic laparoscopy with drainage of right upper quadrant bile peritonitis (31754) and closure of postoperative cystic duct bile leak (13069). ANESTHESIA: General. INDICATION FOR PROCEDURE: The patient is status post, otherwise, uncomplicated drained elective laparoscopic cholecystectomy last week, presented to emergency room last night with increasing right upper quadrant pain, ultrasound showing some fluid collection in the right upper quadrant. Plan is to proceed with diagnostic laparoscopy with procedures as indicated, which might include drainage of a focal bile leak or other areas of peritonitis. The potential risks including bleeding, infection, injury to underlying viscera, possible injury to the common bile duct during the course of closure of the bile leak if present were gone over and the patient wishes to proceed. DETAILS OF PROCEDURE: The patient was taken to the operating room and placed in a supine position. After general endotracheal anesthesia was induced, the abdomen was prepped and draped. The previous camera port site was then reopened at skin level and the fascia level and a 12 mm trocar placed in that area. This was in the mid abdomen just superior to where the umbilicus had been as well as slightly to the right of the midline. I entered the peritoneal cavity the abdomen was then insufflated with 15 mmHg pressure of CO2. The patient was noted to have some bile present in the right upper quadrant. This appeared to be largely confined to the area below the transverse colon at that level and to the gallbladder fossa along the right lobe of the liver both posteriorly and laterally to it, and at this point, 2 additional trocars were placed across, one at the mid epigastrium, one at the right abdomen using the same trocar sites previously used. The inflammatory bilious fluid was then evacuated. Cultures were obtained. Gram stains on this were negative for any infection. At this point, the area was closely observed. There appeared to be a slow evidence of some bile from the cystic stump site. This area was carefully sutured with a [id number] stitch of 3-0 Vicryl stitch and then covered with fibrin sealant. There is still a . The patient may have some bile leak postoperatively, and given this, 2 Tao- Davis drains were placed. One additional trocar site was placed in the right lateral abdomen and one drain placed along the right subphrenic space overlying the liver and the other into the gallbladder fossa. The trocars were removed. Fascia at the 12 mm sites were closed with 0 Vicryl stitch and the skin with 4-0 Vicryl skin stitch. Drains were affixed with 4-0 Vicryl stitch. The patient was taken to the recovery room in satisfactory condition. Neftaly Donato MD /[id number]
== END 2017-09-13 14:15 | disposition home or self-care (01) | DRG 357 ==
LOC: JP.ED 14:08 → JP.MS 17:20
PROVIDERS: ADMIT Surgery; ATTEND Surgery
PROC: 0W9G4ZX Drainage of Peritoneal Cavity, Percutaneous Endoscopic Approach, Diagnostic (ICD-10-PCS; principal; 2017-09-11)
PROC: 0FL84ZZ Occlusion of Cystic Duct, Percutaneous Endoscopic Approach (ICD-10-PCS; 2017-09-11)
DX: K65.3 Choleperitonitis (principal); K91.2 Postsurgical malabsorption, not elsewhere classified; E53.8 Deficiency of other specified B group vitamins; D50.9 Iron deficiency anemia, unspecified; F43.10 Post-traumatic stress disorder, unspecified; F17.210 Nicotine dependence, cigarettes, uncomplicated; Z98.84 Bariatric surgery status; F32.9 Major depressive disorder, single episode, unspecified; F41.9 Anxiety disorder, unspecified; K21.9 Gastro-esophageal reflux disease without esophagitis; H54.7 Unspecified visual loss; Z86.32 Personal history of gestational diabetes; Z91.048 Other nonmedicinal substance allergy status; Z91.09 Other allergy status, other than to drugs and biological substances
CPT/HCPCS: 36415; 76705; 80048; 80053; 81001; 82247; 83690; 83735; 84075; 84100; 85025; 85027; 87070; 87075; 87205; 94762; 96374; 99285-25; A9270-GY; C9113; J0171; J0295; J0330; J1100; J1170; J2185; J2405; J2704; J2710; J2795; J3010; J7030; J7042; J7050

== ENCOUNTER 2017-09-24 12:12 | Emergency (ER) | payer MEDICAID ==
[2017-09-24 12:44] VITALS: BP 135/84
[2017-09-24] MEDS ORDERED: Lidocaine 1% with EPINEPHrine 1:100,000 50 ML MDV INFILT STA (13:03)
--- NOTE | 2017-09-24 13:23 | EDM.PDOC ---
ED HPI GENERAL MEDICAL PROBLEM - General Chief Complaint: Abdominal Pain Stated Complaint: PAIN IN DRAIN SITE AND LOWER RT ABDOMEN Time Seen by Provider: 09/24/17 12:48 Source of Information: Reports: Patient History Limitations: Reports: No Limitations - History of Present Illness INITIAL COMMENTS - FREE TEXT/NARRATIVE: Patient presents with complaints of pain to RLQ and LUCIANO drain site since Monday. She also reports fever and chills off and on this weekend. She has taken acetaminophen for her pain with minimal relief. She is status post panniculectomy. Right Lower Abdominal Pain Score (Numeric/FACES): 8 - Related Data Allergies Allergy/AdvReac Type Severity Reaction Status Date / Time iron [From Venofer] Allergy Hives Verified 09/24/17 12:44 seasonal Allergy Cannot Uncoded 07/10/17 12:39 Remember Home Meds: Home Meds Cyanocobalamin (Vitamin B-12) [Vitamin B-12] 1,000 mcg SL DAILY #100 tab.subl [Rx] Calcium Citrate/Vitamin D3 [Calcium Citrate + D] 400 - 500 mg PO BID 11/24/15 [ History] LORazepam 0.5 mg PO BID PRN 11/24/15 [History] Omeprazole 40 mg PO DAILY 11/24/15 [History] Thiamine [Vitamin B-1] 100 mg PO DAILY 03/17/16 [History] Iron,Carbonyl/Ascorbic Acid [Vitron-C Tablet] 1 each PO DAILY #30 tablet.dr [Rx] Folic Acid 2 tab PO DAILY 04/24/17 [History] Multivitamin [Kid's Vitamins Complete] 1 each PO DAILY 04/24/17 [History] Zinc 1 tab PO DAILY 04/24/17 [History] Levothyroxine Sodium [Synthroid] 1 tab PO DAILY 05/20/17 [History] Etonogestrel [Nexplanon] 68 mg SQ ASDIRECTED 07/27/17 [History] Lisinopril 10 mg PO DAILY 07/27/17 [History] PARoxetine [Paxil] 20 mg PO DAILY 07/27/17 [History] Docusate Sodium [Colace] 100 mg PO BID #100 cap 09/07/17 [Rx] Ondansetron [Zofran ODT] 4 mg PO Q6H PRN #30 tab.dis 09/07/17 [Rx] Past Medical History HEENT History: Reports: Allergic Rhinitis, Impaired Vision Cardiovascular History: Reports: Hypertension Respiratory History: Reports: None Gastrointestinal History: Reports: GERD, Hemorrhoids Genitourinary History: Reports: None LATEX DIPPER History: Reports: , Spontaneous Musculoskeletal History: Reports: Fracture Neurological History: Reports: Concussion, Head Trauma Psychiatric History: Reports: Anxiety, Depression, PTSD Endocrine/Metabolic History: Reports: Diabetes, Gestational Hematologic History: Reports: B12 Deficiency, Iron Deficiency Immunologic History: Reports: None Oncologic (Cancer) History: Reports: None Dermatologic History: Reports: Other (See Below) Other Dermatologic History: panniculectomy - Infectious Disease History Infectious Disease History: Reports: Chicken Pox - Past Surgical History GI Surgical History: Reports: Bariatric Procedure, Cholecystectomy, Hernia, Abdominal, Hernia Repair/Other, Other (See Below) Other GI Surgeries/Procedures: hemorrhoidectomy Female Surgical History: Reports: Section, D&C Endocrine Surgical History: Reports: Thyroidectomy Social & Family History - Family History Family Medical History: Noncontributory HEENT: Reports: Hearing Impairment, Impaired Vision, Otitis Media, Sinusitis Cardiac: Reports: Bypass, CAD, GA Respiratory: Reports: None GI: Reports: None : Reports: None OBGYN: Reports: None Musculoskeletal: Reports: None Neurological: Reports: Alzheimers Disease, Dementia Psychiatric: Reports: Depression Endocrine/Metabolic: Reports: Diabetes, type II Hematologic: Reports: None Immunologic: Reports: None Dermatologic: Reports: None Oncologic: Reports: None - Tobacco Use Smoking Status *Q: Light Tobacco Smoker Years of Tobacco use: 5 Packs/Tins Daily: 0.4 - Caffeine Use Caffeine Use: Reports: Coffee - Recreational Drug Use Recreational Drug Use: No ED ROS GENERAL - Review of Systems Review Of Systems: See Below Constitutional: Reports: Fever, Chills. Denies: Malaise, Weakness HEENT: Reports: No Symptoms Respiratory: Denies: Shortness of Breath, Wheezing, Cough, Sputum Cardiovascular: Denies: Chest Pain, Dyspnea on Exertion, Edema, Lightheadedness , Palpitations, Syncope Endocrine: Reports: No Symptoms GI/Abdominal: Reports: Abdominal Pain, Other (Pain to RLQ at incision site and pain to LUCIANO drain site. ). Denies: Black Stool, Bloody Stool, Constipation, Diarrhea, Distension, Hematemesis, Hematochezia, Nausea, Vomiting : Reports: No Symptoms Musculoskeletal: Reports: No Symptoms Skin: Reports: Other (she reports swelling and hard lump to right side of incision. ) Neurological: Reports: No Symptoms Psychiatric: Reports: No Symptoms Hematologic/Lymphatic: Reports: No Symptoms Immunologic: Reports: No Symptoms ED EXAM, GI/ABD - Physical Exam Exam: See Below Text/Narrative:: Yane presents to the ER today status post panniculectomy with bile leak, LUCIANO drain insertion. Exam Limited By: No Limitations General Appearance: Alert, WD/WN, No Apparent Distress Eyes: Bilateral: EOMI Ears: Normal External Exam, Normal Canal, Hearing Grossly Normal, Normal TMs Nose: Normal Inspection, Normal Mucosa, No Blood Throat/Mouth: Normal Inspection, Normal Lips, Normal Teeth, Normal Gums, Normal Oropharynx, Normal Voice, No Airway Compromise Head: Atraumatic, Normocephalic Neck: Normal Inspection, Supple, Non-Tender, Full Range of Motion Respiratory/Chest: No Respiratory Distress, Lungs Clear, Normal Breath Sounds, No Accessory Muscle Use, Chest Non-Tender Cardiovascular: Normal Peripheral Pulses, Regular Rate, Rhythm, No Edema, No Gallop, No Murmur, No Rub GI/Abdominal Exam: Normal Bowel Sounds, Soft, No Organomegaly, No Distention, Other (tendernes to RLQ at incision site, small fluid filled collection noted. Dr. Porter notified. No erythema, fluctuance noted. LUCIANO drain site has no erythema or drainage noted. LUCIANO drain has clear green tinged fluid. ) Back Exam: Normal Inspection, Full Range of Motion. No: CVA Tenderness (R), CVA Tenderness (L) Extremities: Normal Inspection, Normal Range of Motion, Non-Tender, No Pedal Edema, Normal Capillary Refill Neurological: Alert, Oriented, CN II-XII Intact, Normal Cognition, Normal Gait, Normal Reflexes, No Motor/Sensory Deficits Psychiatric: Normal Affect, Normal Mood Skin Exam: Warm, Dry, Normal Color, No Rash, Other (fluid collection to RLQ as described vale. ). No: Ecchymosis, Erythema, Increased Warmth Lymphatic: No Adenopathy ED ABDOMINAL/GI PROCEDURES - Ultrasound Progress: Bedside ultrasound pr Dr. Porter to abdomen. Identified fluid collection to RLQ at incision site. - Additional/Other Procedure(s) Procedure(s) (Free Text): Drainage of abdominal wall fluid Per Dr. Porter Area prepped with chlorhexadine, use of lidocaine 1% with epi, 3 ml infiltrated into site, 2 ml sanguineous aspirated and sent for culture. Patient tolerated well. Sterile gauze and tape applied. Course - Vital Signs Last Recorded V/S: Last Vital Signs Temp 37.1 C 09/24/17 12:41 Pulse 88 09/24/17 12:41 Resp 14 09/24/17 12:41 BP 135/84 09/24/17 12:41 Pulse Ox 100 09/24/17 12:41 - Orders/Labs/Meds Orders: Active Orders 24 hr Category Date Time Status CULTURE ANAEROBIC [RM] Stat Lab 09/24/17 13:29 Received CULTURE BODY FLUID + SMEAR [RM] Stat Lab 09/24/17 13:29 Received Meds: Medications Discontinued Medications Generic Name Dose Route Start Last Admin Trade Name Tri PRN Reason Stop Dose Admin Lidocaine/Epinephrine 10 ml 09/24/17 13:03 Xylocaine 1% With Epinephrine 1:100,000 INFILT 09/24/17 13:04 NOW STA - Re-Assessments/Exams Free Text/Narrative Re-Assessment/Exam: 09/24/17 13:[address] Porter 09/24/17 13:17 Abdominal fluid collection accessed and fluid extracted Departure - Departure Time of Disposition: 13:23 Disposition: Home, Self-Care 01 Condition: Good Clinical Impression: Fluid collection at surgical site, Postoperative pain - Discharge Information Referrals: Jennifer Dunham CNM [Primary Care Provider] - Forms: ED Department Discharge Additional Instructions: You have been evaluated and treated for a fluid collection to the right side of your panniculectomy surgical site. The fluid was aspirated per Dr. Porter and sent for a culture. Follow up with Dr. Donato and Salud Pop as scheduled. Take oxycodone 5mg by mouth every four hours as needed for pain. You have been provided ten tablets to last until your appointment. Keep area clean and dry. Continue LUCIANO drain care as previously instructed. Return for worsening, issues or concerns. - My Orders Last 24 Hours: My Active Orders 09/24/17 13:29 CULTURE ANAEROBIC [RM] Stat CULTURE BODY FLUID + SMEAR [RM] Stat - Assessment/Plan Last 24 Hours: My Active Orders 09/24/17 13:29 CULTURE ANAEROBIC [RM] Stat CULTURE BODY FLUID + SMEAR [RM] Stat Assessment:: Postoperative pain Fluid collection at surgical site Bedside ultrasound per Dr. Porter Fluid collection aspiration at the bedside Culture Plan: Patient evaluated and treated for a fluid collection to the right side of panniculectomy surgical site. The fluid was aspirated per Dr. Porter and sent for a culture. Follow up with Dr. Donato and Salud Pop as scheduled. Take oxycodone 5mg by mouth every four hours as needed for pain. Patient provided ten tablets to last until her scheduled appointment on Monday. Keep area clean and dry. Continue LUCIANO drain care as previously instructed. Return for worsening, issues or concerns.
--- NOTE | 2017-09-24 14:56 | OR ---
DATE OF PROCEDURE: 09/24/2017 PROCEDURE: Drainage of fluid collection at the right side of the panniculectomy scar, subcutaneous. COMPLICATION: None. SOUVENIR AND NOVELTY MAKER: None. FINDINGS: Approximately 5 mL of blood-type fluid consistent with hematoma (sent for culture). ANESTHESIA: Local. RISKS: Risks, benefits, alternatives, and limitations including, but not limited to infection, bleeding, and injury to intraabdominal structures were explained to the patient who wished to proceed. PROCEDURE IN DETAIL: The patient was placed in supine position. Using 11 megahertz ultrasound probe, the area was interrogated and the fluid collection was identified in a depth of 1.5 cm approximately. The area was prepped and draped. A 25-gauge needle was used to anesthetize the track with lidocaine. This was then followed by an 18-gauge needle which was able to access the center of the pocket. Old blood type fluid was able to be removed. After aspiration, Bacitracin dressings were applied. The patient tolerated the procedure well. Lawrence Poretr MD /[id number]
== END 2017-09-24 13:40 | disposition home or self-care (01) ==
LOC: JP.ED 12:12
DX: G89.18 Other acute postprocedural pain (principal); F17.210 Nicotine dependence, cigarettes, uncomplicated; I10 Essential (primary) hypertension; K21.9 Gastro-esophageal reflux disease without esophagitis; F41.9 Anxiety disorder, unspecified; F32.9 Major depressive disorder, single episode, unspecified; Z79.899 Other long term (current) drug therapy; Z91.09 Other allergy status, other than to drugs and biological substances
CPT/HCPCS: 10160; 87070; 87075; 87205; 99284-25

== ENCOUNTER 2017-10-01 16:05 | Emergency (ER) | payer MEDICAID ==
--- NOTE | 2017-10-01 18:36 | EDM.PDOC ---
ED HPI GENERAL MEDICAL PROBLEM - General Chief Complaint: Abdominal Pain Stated Complaint: ABDOMINAL PAIN Time Seen by Provider: 10/01/17 17:28 Source of Information: Reports: Patient History Limitations: Reports: No Limitations - History of Present Illness INITIAL COMMENTS - FREE TEXT/NARRATIVE: 32 yo female presents with ongoing ABD pain. Pt has extensive hx of ABD pain and surgeries presents today with pain and yellow foul smelling diarrhea. drain was placed 3 weeks ago in RUQ clear drainage however pt states that yesterday drainage was bile colored. denies fever or chills. denies dysuria. Left Abdominal Pain Score (Numeric/FACES): 8 - Related Data Allergies Allergy/AdvReac Type Severity Reaction Status Date / Time iron [From Venofer] Allergy Hives Verified 10/01/17 17:28 seasonal Allergy Cannot Uncoded 10/01/17 17:28 Remember Home Meds: Home Meds Cyanocobalamin (Vitamin B-12) [Vitamin B-12] 1,000 mcg SL DAILY #100 tab.subl [Rx] Calcium Citrate/Vitamin D3 [Calcium Citrate + D] 400 - 500 mg PO BID 11/24/15 [ History] LORazepam 0.5 mg PO BID PRN 11/24/15 [History] Omeprazole 40 mg PO DAILY 11/24/15 [History] Thiamine [Vitamin B-1] 100 mg PO DAILY 03/17/16 [History] Iron,Carbonyl/Ascorbic Acid [Vitron-C Tablet] 1 each PO DAILY #30 tablet. [Rx] Folic Acid 2 tab PO DAILY 04/24/17 [History] Multivitamin [Kid's Vitamins Complete] 1 each PO DAILY 04/24/17 [History] Zinc 1 tab PO DAILY 04/24/17 [History] Levothyroxine Sodium [Synthroid] 1 tab PO DAILY 05/20/17 [History] Etonogestrel [Nexplanon] 68 mg SQ ASDIRECTED 07/27/17 [History] Lisinopril 10 mg PO DAILY 07/27/17 [History] PARoxetine [Paxil] 20 mg PO DAILY 07/27/17 [History] Docusate Sodium [Colace] 100 mg PO BID #100 cap 09/07/17 [Rx] Ondansetron [Zofran ODT] 4 mg PO Q6H PRN #30 tab.dis 09/07/17 [Rx] Celecoxib [CeleBREX] 200 mg PO DAILY 10/01/17 [History] Past Medical History HEENT History: Reports: Allergic Rhinitis, Impaired Vision Cardiovascular History: Reports: Hypertension Respiratory History: Reports: None Gastrointestinal History: Reports: GERD, Hemorrhoids Genitourinary History: Reports: None 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: , 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 Musculoskeletal History: Reports: Fracture Neurological History: Reports: Concussion, Head Trauma Psychiatric History: Reports: Anxiety, Depression, PTSD Endocrine/Metabolic History: Reports: Diabetes, Gestational Hematologic History: Reports: B12 Deficiency, Iron Deficiency Immunologic History: Reports: None Oncologic (Cancer) History: Reports: None Dermatologic History: Reports: Other (See Below) Other Dermatologic History: panniculectomy - Infectious Disease History Infectious Disease History: Reports: Chicken Pox - Past Surgical History GI Surgical History: Reports: Bariatric Procedure, Cholecystectomy, Hernia, Abdominal, Hernia Repair/Other, Other (See Below) Other GI Surgeries/Procedures: hemorrhoidectomy Female Surgical History: Reports: Section, D&C Endocrine Surgical History: Reports: Thyroidectomy Social & Family History - Family History Family Medical History: Noncontributory HEENT: Reports: Hearing Impairment, Impaired Vision, Otitis Media, Sinusitis Cardiac: Reports: Bypass, CAD, [place] Respiratory: Reports: None GI: Reports: None : Reports: None OBGYN: Reports: None Musculoskeletal: Reports: None Neurological: Reports: Alzheimers Disease, Dementia Psychiatric: Reports: Depression Endocrine/Metabolic: Reports: Diabetes, type II Hematologic: Reports: None Immunologic: Reports: None Dermatologic: Reports: None Oncologic: Reports: None - Tobacco Use Smoking Status *Q: Current Every Day Smoker Years of Tobacco use: 5 Packs/Tins Daily: 0.2 Used Tobacco, but Quit: No Second Hand Smoke Exposure: Yes - Caffeine Use Caffeine Use: Reports: Coffee - Recreational Drug Use Recreational Drug Use: No ED ROS GENERAL - Review of Systems Review Of Systems: See Below Constitutional: Reports: Fatigue. Denies: Fever, Chills Respiratory: Denies: Shortness of Breath, Wheezing Cardiovascular: Denies: Chest Pain GI/Abdominal: Reports: Abdominal Pain, Anorexia, Diarrhea. Denies: Black Stool , Constipation : Denies: Dysuria, Flank Pain Skin: Denies: Rash ED EXAM, GI/ABD - Physical Exam Exam: See Below Exam Limited By: No Limitations General Appearance: Alert, WD/WN, No Apparent Distress Head: Atraumatic, Normocephalic Respiratory/Chest: No Respiratory Distress, Lungs Clear, Normal Breath Sounds. No: Crackles, Rhonchi, Wheezing Cardiovascular: Regular Rate, Rhythm, No Edema, No Murmur GI/Abdominal Exam: Normal Bowel Sounds, Soft, Tender (generalized tenderness, mild tenderness RUQ, extensive surgical scarring) Neurological: Alert, Oriented Skin Exam: Warm, Dry, Intact, Other (area surroudning drain no signs of infection). No: Increased Warmth, Rash Course - Vital Signs Last Recorded V/S: Last Vital Signs Temp 36.0 C 10/01/17 17:27 Pulse 62 10/01/17 19:18 Resp 16 10/01/17 19:18 BP 127/71 10/01/17 19:18 Pulse Ox 100 10/01/17 19:18 - Orders/Labs/Meds Orders: Active Orders 24 hr Category Date Time Status CLOSTRIDIUM DIFFICILE BY PCR [] Stat Lab 10/01/17 18:28 Ordered STOOL CULTURE Stat Lab 10/01/17 18:15 Ordered Labs: Laboratory Tests 10/01/17 Range/Units 18:16 WBC 6.8 (4.5-11.0) K/uL RBC 3.97 (3.30-5.50) M/uL Hgb 10.5 L (12.0-15.0) g/dL Hct 33.4 L (36.0-48.0) % MCV 84 (80-98) fL MCH 26 L (27-31) pg MCHC 31 L (32-36) % Plt Count 410 H (150-400) K/uL Neut % (Auto) 61 (36-66) % Lymph % (Auto) 31 (24-44) % [place] % (Auto) 7 H (2-6) % Eos % (Auto) 1 L (2-4) % Baso % (Auto) 0 (0-1) % Meds: Medications Discontinued Medications Generic Name Dose Route Start Last Admin Trade Name Freq PRN Reason Stop Dose Admin Oxycodone HCl 10 mg 10/01/17 19:24 10/01/17 19:35 Oxycodone PO 10/01/17 19:25 10 mg ONETIME ONE Administration - Re-Assessments/Exams Free Text/Narrative Re-Assessment/Exam: 10/01/17 19:57 positive c. diff will start flagyl tonight. follow-up in clinic later this week if needed Departure - Departure Time of Disposition: 19:58 Disposition: Home, Self-Care 01 Condition: Good Clinical Impression: C. difficile diarrhea, Gastroenteritis - Discharge Information Instructions: Clostridium Difficile Infection, [id number] Referrals: Jennifer Dunham CNM [Primary Care Provider] - Forms: ED Department Discharge Additional Instructions: flagyl 500 mg three times per day for 10 days if after completion of antibiotics diarrhea returns you will need stool sample retested - My Orders Last 24 Hours: My Active Orders 10/01/17 18:15 STOOL CULTURE Stat 10/01/17 18:28 CLOSTRIDIUM DIFFICILE BY PCR [RM] Stat - Assessment/Plan Last 24 Hours: My Active Orders 10/01/17 18:15 STOOL CULTURE Stat 10/01/17 18:28 CLOSTRIDIUM DIFFICILE BY PCR [RM] Stat
[2017-10-01 19:19] VITALS: BP 127/71
[2017-10-01] MEDS ORDERED: oxyCODONE 5 MG Tab PO ONE (19:24)
== END 2017-10-01 20:07 | disposition home or self-care (01) ==
LOC: JP.ED 16:05
DX: A04.72 Enterocolitis due to Clostridium difficile, not specified as recurrent (principal); K52.9 Noninfective gastroenteritis and colitis, unspecified; F17.210 Nicotine dependence, cigarettes, uncomplicated; F41.9 Anxiety disorder, unspecified; F32.9 Major depressive disorder, single episode, unspecified; I10 Essential (primary) hypertension; Z79.899 Other long term (current) drug therapy; Z91.09 Other allergy status, other than to drugs and biological substances; Z88.8 Allergy status to other drugs, medicaments and biological substances
CPT/HCPCS: 36415; 85025; 87493; 99284; A9270

== ENCOUNTER 2017-11-19 18:37 | Emergency (ER) | payer MEDICAID ==
--- NOTE | 2017-11-19 19:39 | EDM.PDOC ---
ED HPI GENERAL MEDICAL PROBLEM - General Chief Complaint: Abdominal Pain Stated Complaint: LEFT ABD PAIN Time Seen by Provider: 11/19/17 19:10 Source of Information: Reports: Patient History Limitations: Reports: No Limitations - History of Present Illness INITIAL COMMENTS - FREE TEXT/NARRATIVE: 32-year-old female complaining of abdominal pain ongoing all over the last 48 hours it's been worse. She is having intermittent cramping especially across the upper abdomen with nausea but no vomiting. No fevers or chills, she denies diarrhea. The pain occasionally radiates to the back. She has a follow-up appointment on Monday with surgery. Onset: Unknown/Unsure Location: Reports: Abdomen Severity: Moderate Associated Symptoms: Reports: Loss of Appetite. Denies: Fever/Chills, Shortness of Breath epigastric Pain Score (Numeric/FACES): 8 - Related Data Allergies Allergy/AdvReac Type Severity Reaction Status Date / Time iron [From Venofer] Allergy Hives Verified 11/19/17 19:10 seasonal Allergy Cannot Uncoded 11/19/17 19:10 Remember Home Meds: Home Meds Cyanocobalamin (Vitamin B-12) [Vitamin B-12] 1,000 mcg SL DAILY #100 tab.subl [Rx] Calcium Citrate/Vitamin D3 [Calcium Citrate + D] 400 - 500 mg PO BID 11/24/15 [ History] LORazepam 0.5 mg PO BID PRN 11/24/15 [History] Omeprazole 40 mg PO DAILY 11/24/15 [History] Thiamine [Vitamin B-1] 100 mg PO DAILY 03/17/16 [History] Folic Acid 2 mg PO DAILY 04/24/17 [History] Multivitamin [Kid's Vitamins Complete] 1 each PO DAILY 04/24/17 [History] Zinc 50 mg PO DAILY 04/24/17 [History] Levothyroxine Sodium [Synthroid] 125 mcg PO DAILY 05/20/17 [History] Etonogestrel [Nexplanon] 68 mg SQ ASDIRECTED 07/27/17 [History] Lisinopril 10 mg PO DAILY 07/27/17 [History] PARoxetine [Paxil] 20 mg PO DAILY 07/27/17 [History] Ondansetron [Zofran ODT] 4 mg PO Q6H PRN #30 tab.dis 09/07/17 [Rx] Celecoxib [CeleBREX] 200 mg PO DAILY 10/01/17 [History] Docusate Sodium [Colace] 100 mg PO BID PRN 11/19/17 [History] Past Medical History HEENT History: Reports: Allergic Rhinitis, Impaired Vision Cardiovascular History: Reports: Hypertension Respiratory History: Reports: None Gastrointestinal History: Reports: GERD, Hemorrhoids Genitourinary History: Reports: None 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: , 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 Musculoskeletal History: Reports: Fracture Neurological History: Reports: Concussion, Head Trauma Psychiatric History: Reports: Anxiety, Depression, PTSD Endocrine/Metabolic History: Reports: Diabetes, Gestational, Hypothyroidism Hematologic History: Reports: B12 Deficiency, Iron Deficiency Immunologic History: Reports: None Oncologic (Cancer) History: Reports: None Dermatologic History: Reports: Other (See Below) Other Dermatologic History: panniculectomy - Infectious Disease History Infectious Disease History: Reports: C-Difficile - Past Surgical History GI Surgical History: Reports: Bariatric Procedure, Cholecystectomy, Hernia, Abdominal, Hernia Repair/Other, Other (See Below) Other GI Surgeries/Procedures: hemorrhoidectomy. panniculectomy Female Surgical History: Reports: Section, D&C Endocrine Surgical History: Reports: Thyroidectomy Social & Family History - Family History Family Medical History: Noncontributory HEENT: Reports: Hearing Impairment, Impaired Vision, Otitis Media, Sinusitis Cardiac: Reports: Bypass, CAD, [place] Respiratory: Reports: None GI: Reports: None : Reports: None OBGYN: Reports: None Musculoskeletal: Reports: None Neurological: Reports: Alzheimers Disease, Dementia Psychiatric: Reports: Depression Endocrine/Metabolic: Reports: Diabetes, type II Hematologic: Reports: None Immunologic: Reports: None Dermatologic: Reports: None Oncologic: Reports: None - Tobacco Use Smoking Status *Q: Current Every Day Smoker Years of Tobacco use: 5 Packs/Tins Daily: 0.4 - Caffeine Use Caffeine Use: Reports: None - Recreational Drug Use Recreational Drug Use: No ED ROS GENERAL - Review of Systems Review Of Systems: See Below Constitutional: Reports: Malaise. Denies: Fever, Chills Respiratory: Denies: Shortness of Breath Cardiovascular: Denies: Chest Pain GI/Abdominal: Reports: Abdominal Pain. Denies: Diarrhea, Vomiting Skin: Reports: No Symptoms Neurological: Denies: Headache ED EXAM, GI/ABD - Physical Exam Exam: See Below Exam Limited By: No Limitations General Appearance: Alert, No Apparent Distress (Patient doesn't look distressed but she is upset, tearful) Eyes: Bilateral: Normal Appearance (No jaundice) Respiratory/Chest: No Respiratory Distress GI/Abdominal Exam: Normal Bowel Sounds, Soft, Other (No significant distention, she does react with tenderness to palpation diffusely through the abdomen. More so in the upper abdomen and epigastric area) Course - Vital Signs Last Recorded V/S: Last Vital Signs Temp 98.4 F 11/19/17 21:29 Pulse 64 11/19/17 21:29 Resp 14 11/19/17 21:29 BP 137/83 11/19/17 21:29 Pulse Ox 99 11/19/17 21:29 - Orders/Labs/Meds Orders: Active Orders 24 hr Category Date Time Status Abdomen Pelvis w Cont [CT] Stat Exams 11/19/17 20:14 Taken Labs: Laboratory Tests 11/19/17 11/19/17 Range/Units 19:46 19:46 WBC 5.2 (4.5-11.0) K/uL RBC 3.92 (3.30-5.50) M/uL Hgb 9.6 L (12.0-15.0) g/dL Hct 31.3 L (36.0-48.0) % MCV 80 (80-98) fL MCH 25 L (27-31) pg MCHC 31 L (32-36) % Plt Count 297 (150-400) K/uL Neut % (Auto) 56 (36-66) % Lymph % (Auto) 35 (24-44) % [place] % (Auto) 8 H (2-6) % Eos % (Auto) 1 L (2-4) % Baso % (Auto) 1 (0-1) % Sodium 141 (140-148) mmol/L Potassium 3.7 (3.6-5.2) mmol/L Chloride 106 (100-108) mmol/L Carbon Dioxide 28 (21-32) mmol/L Anion Gap 7.0 (5.0-14.0) mmol/L BUN 7 (7-18) mg/dL Creatinine 0.8 (0.6-1.0) mg/dL Est Cr Clr Drug Dosing 96.36 mL/min Estimated GFR (MDRD) > 60 (>60) Glucose 84 (74-106) mg/dL Calcium 7.9 L (8.5-10.1) mg/dL Total Bilirubin 0.2 (0.2-1.0) mg/dL AST 146 H D (15-37) U/L ALT 281 H (12-78) U/L Alkaline Phosphatase 219 H (46-116) U/L Total Protein 6.5 (6.4-8.2) g/dL Albumin 2.9 L (3.4-5.0) g/dL Globulin 3.6 H (2.3-3.5) g/dL Albumin/Globulin Ratio 0.8 L (1.2-2.2) Amylase 64 (25-115) U/L Lipase 125 (73-393) U/L Meds: Medications Discontinued Medications Generic Name Dose Route Start Last Admin Trade Name Freq PRN Reason Stop Dose Admin Hydromorphone HCl 0.5 mg 11/19/17 21:08 11/19/17 21:14 Dilaudid IVPUSH 11/19/17 21:09 0.5 mg ONETIME ONE Administration Sodium Chloride 100 mls @ 3 mls/sec 11/19/17 20:30 11/19/17 20:46 Normal Saline IV 3 mls/sec ASDIRECTED SUMMER Administration Iopamidol 100 ml 11/19/17 20:30 11/19/17 20:46 Isovue-300 (61%) IV 100 ml . 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 She received a 5 day supply of hydrocodone 4 days ago. CBC, CMP, amylase and lipase were obtained, and we will likely need to CT her abdomen with IV contrast if renal function allows. 11/19/17 21:09 Patient has diffuse elevation of LFTs, bilirubin is normal. White count is normal. Kidney function is normal, CT scan does show diffuse ascites or free fluid in the abdomen. 11/19/17 21:50 Radiology confirmation is of the small amount of ascites but no other findings. Discussed with Dr. Donato, he recommended a steroid bolus and Medrol dosepak and follow-up in the clinic in 2-4 days. Departure - Departure Time of Disposition: 22:15 Disposition: Home, Self-Care 01 Condition: Fair Clinical Impression: Abdominal pain Qualifiers: Abdominal location: upper abdomen, unspecified Qualified Code(s): R10.10 - Upper abdominal pain, unspecified - Discharge Information *PRESCRIPTION DRUG MONITORING PROGRAM REVIEWED*: Yes *COPY OF PRESCRIPTION DRUG MONITORING REPORT IN PATIENT AV: No Instructions: Abdominal Pain, Adult, [id number] Referrals: Jennifer Dunham CNM [Primary Care Provider] - Forms: ED Department Discharge Care Plan Goals: Continue current medications, and add Medrol Dosepak starting tomorrow morning as prescribed. Recheck on Monday as scheduled or call the surgical department sooner if worsening despite treatment. - My Orders Last 24 Hours: My Active Orders 11/19/17 20:14 Abdomen Pelvis w Cont [CT] Stat - Assessment/Plan Last 24 Hours: My Active Orders 11/19/17 20:14 Abdomen Pelvis w Cont [CT] Stat
[2017-11-19] MEDS ORDERED: Sodium Chloride 0.9% 100 ML IV SCH (20:30)
[2017-11-19] MEDS ORDERED: Iopamidol 612 MG/ML 100 ML Bottle IV SCH (20:30)
[2017-11-19] MEDS ORDERED: HYDROmorphone 0.5 MG/0.5 ML Syringe IVPUSH ONE (21:08)
[2017-11-19 21:29] VITALS: BP 137/83
[2017-11-19] MEDS ORDERED: methylPREDNISolone Sodium Succinate 125 MG/2 ML SDV IVPUSH ONE (21:44)
== END 2017-11-19 22:15 | disposition home or self-care (01) ==
LOC: JP.ED 18:37
DX: R10.10 Upper abdominal pain, unspecified (principal); I10 Essential (primary) hypertension; K21.9 Gastro-esophageal reflux disease without esophagitis; E03.9 Hypothyroidism, unspecified; F17.210 Nicotine dependence, cigarettes, uncomplicated; Z91.048 Other nonmedicinal substance allergy status; Z79.899 Other long term (current) drug therapy
CPT/HCPCS: 36415; 74177; 80053; 82150; 83690; 85025; 96374; 96375; 99284; J1170; J2930; J7030; Q9967

== ENCOUNTER 2017-11-20 14:53 | Emergency (ER) | payer MEDICAID ==
[2017-11-20] MEDS ORDERED: Dicyclomine 10 MG Cap PO ONE (15:36)
--- NOTE | 2017-11-20 15:42 | EDM.PDOC ---
ED HPI GENERAL MEDICAL PROBLEM - General Chief Complaint: Abdominal Pain Stated Complaint: ABDOMINAL PAIN, SHORTNESS OF BREATH Time Seen by Provider: 11/20/17 15:25 Source of Information: Reports: Patient, Old Records History Limitations: Reports: No Limitations - History of Present Illness INITIAL COMMENTS - FREE TEXT/NARRATIVE: 32 yo female here for the 2nd day in a row with abdominal pain. Was seen here yesterday for this and elevated LFT's and ascitic fluid on CT were the only abnormalities. She has a follow up appt with Dr. Donato on Monday of this week. She was instructed that if she got worse in the interim to call Dr. Donato' s office. When she called today they just told her to go to the ER which frustrated her somewhat. She has not had any nausea or vomiting. No change in her eating. No bleeding or black stools. No urinary sx's. Is taking the prescribed Medrol Dose pack and does not like the way it makes her feel. She has had a hernia repair and a cholecystectomy per Dr. Donato. The gallbladder removal surgery had a complication of leakage of bile post op. Onset: Gradual Duration: Day(s): Location: Reports: Abdomen, Generalized Quality: Reports: Sharp Severity: Moderate Improves with: Reports: None Worsens with: Reports: Other (? time) Context: Reports: Other (See HPI) Associated Symptoms: Reports: Other (mildly light-headed with standing.). 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 ) abdominal Pain Score (Numeric/FACES): 8 - Related Data Allergies Allergy/AdvReac Type Severity Reaction Status Date / Time iron [From Venofer] Allergy Hives Verified 11/20/17 15:15 seasonal Allergy Cannot Uncoded 11/20/17 15:15 Remember Home Meds: Home Meds Cyanocobalamin (Vitamin B-12) [Vitamin B-12] 1,000 mcg SL DAILY #100 tab.subl [Rx] Calcium Citrate/Vitamin D3 [Calcium Citrate + D] 400 - 500 mg PO BID 11/24/15 [ History] LORazepam 0.5 mg PO BID PRN 11/24/15 [History] Omeprazole 40 mg PO DAILY 11/24/15 [History] Thiamine [Vitamin B-1] 100 mg PO DAILY 03/17/16 [History] Folic Acid 2 mg PO DAILY 04/24/17 [History] Multivitamin [Kid's Vitamins Complete] 1 each PO DAILY 04/24/17 [History] Zinc 50 mg PO DAILY 04/24/17 [History] Levothyroxine Sodium [Synthroid] 125 mcg PO DAILY 05/20/17 [History] Etonogestrel [Nexplanon] 68 mg SQ ASDIRECTED 07/27/17 [History] Lisinopril 10 mg PO DAILY 07/27/17 [History] PARoxetine [Paxil] 20 mg PO DAILY 07/27/17 [History] Ondansetron [Zofran ODT] 4 mg PO Q6H PRN #30 tab.dis 09/07/17 [Rx] Celecoxib [CeleBREX] 200 mg PO DAILY 10/01/17 [History] Docusate Sodium [Colace] 100 mg PO BID PRN 11/19/17 [History] Acetaminophen/HYDROcodone [[place] 325-5 MG] 1 - 2 tab PO Q6H PRN #20 tab [Rx] methylPREDNISolone [Medrol] 1 tab PO ASDIRECTED 11/20/17 [History] Past Medical History HEENT History: Reports: Allergic Rhinitis, Impaired Vision Cardiovascular History: Reports: Hypertension Respiratory History: Reports: None Gastrointestinal History: Reports: GERD, Hemorrhoids Genitourinary History: Reports: None [employer] OR TRAP History: Reports: , Spontaneous Musculoskeletal History: Reports: Fracture Neurological History: Reports: Concussion, Head Trauma Psychiatric History: Reports: Anxiety, Depression, PTSD Endocrine/Metabolic History: Reports: Diabetes, Gestational, Hypothyroidism Hematologic History: Reports: B12 Deficiency, Iron Deficiency Immunologic History: Reports: None Oncologic (Cancer) History: Reports: None Dermatologic History: Reports: Other (See Below) Other Dermatologic History: panniculectomy - Infectious Disease History Infectious Disease History: Reports: C-Difficile - Past Surgical History GI Surgical History: Reports: Bariatric Procedure, Cholecystectomy, Hernia, Abdominal, Hernia Repair/Other, Other (See Below) Other GI Surgeries/Procedures: hemorrhoidectomy. panniculectomy Female Surgical History: Reports: Section, D&C Endocrine Surgical History: Reports: Thyroidectomy Social & Family History - Family History Family Medical History: Noncontributory HEENT: Reports: Hearing Impairment, Impaired Vision, Otitis Media, Sinusitis Cardiac: Reports: Bypass, CAD, [place] Respiratory: Reports: None GI: Reports: None : Reports: None OBGYN: Reports: None Musculoskeletal: Reports: None Neurological: Reports: Alzheimers Disease, Dementia Psychiatric: Reports: Depression Endocrine/Metabolic: Reports: Diabetes, type II Hematologic: Reports: None Immunologic: Reports: None Dermatologic: Reports: None Oncologic: Reports: None - Tobacco Use Smoking Status *Q: Current Every Day Smoker Years of Tobacco use: 5 Packs/Tins Daily: 0.5 - Caffeine Use Caffeine Use: Reports: None - Recreational Drug Use Recreational Drug Use: No ED ROS GENERAL - Review of Systems Review Of Systems: See Below Constitutional: Reports: Malaise. Denies: Fever, Chills HEENT: Reports: No Symptoms Respiratory: Reports: No Symptoms Cardiovascular: Reports: Lightheadedness Endocrine: Reports: No Symptoms GI/Abdominal: Reports: Abdominal Pain. Denies: Black Stool, Bloody Stool, Constipation, Diarrhea, Hematemesis, Hematochezia, Melena, Nausea, Vomiting : Reports: No Symptoms Musculoskeletal: Reports: No Symptoms Skin: Reports: No Symptoms Neurological: Reports: No Symptoms ED EXAM, GI/ABD - Physical Exam Exam: See Below Exam Limited By: No Limitations General Appearance: Alert, WD/WN, Mild Distress Eyes: Bilateral: Normal Appearance, Proptosis Ears: Normal External Exam, Normal Canal, Hearing Grossly Normal Nose: Normal Inspection, Normal Mucosa, No Blood Throat/Mouth: Normal Inspection, Normal Lips, Normal Oropharynx, Normal Voice, No Airway Compromise Head: Atraumatic, Normocephalic Neck: Normal Inspection, Supple, Non-Tender Respiratory/Chest: No Respiratory Distress, Lungs Clear, Normal Breath Sounds, No Accessory Muscle Use Cardiovascular: Regular Rate, Rhythm, No Edema GI/Abdominal Exam: Soft, No Distention, Tender (diffuse and mild), Abnormal Bowel Sounds (increased). No: Non-Tender, Distended, Guarding, Rigid, Rebound, Hernia Back Exam: Normal Inspection. No: CVA Tenderness (R), CVA Tenderness (L) Extremities: Normal Inspection, Normal Range of Motion, Non-Tender, No Pedal Edema Neurological: Alert, Oriented, CN II-XII Intact, Normal Cognition, No Motor/ Sensory Deficits Psychiatric: Normal Affect, Normal Mood Skin Exam: Warm, Dry, Intact, Normal Color, No Rash Course - Vital Signs Text/Narrative:: No change with dicyclomine 20 mg po Last Recorded V/S: Last Vital Signs Temp 36.8 C 11/20/17 15:09 Pulse 82 11/20/17 16:17 Resp 12 11/20/17 16:17 BP 144/86 H 11/20/17 16:17 Pulse Ox 100 11/20/17 16:17 Orthostatic Blood Pressure [ 139/81 Standing] Orthostatic Blood Pressure [ 141/86 Sitting] Orthostatic Blood Pressure [ 144/86 Supine] - Orders/Labs/Meds Orders: Active Orders 24 hr Category Date Time Status Orthostatic Vital Signs [RC] ASDIRECTED Care 11/20/17 15:35 Active Labs: Laboratory Tests 11/20/17 11/20/17 Range/Units 15:47 15:47 WBC 9.3 (4.5-11.0) K/uL RBC 4.30 (3.30-5.50) M/uL Hgb 10.4 L (12.0-15.0) g/dL Hct 33.9 L (36.0-48.0) % MCV 79 L (80-98) fL MCH 24 L (27-31) pg MCHC 31 L (32-36) % Plt Count 379 (150-400) K/uL Sodium 138 L (140-148) mmol/L Potassium 3.5 L (3.6-5.2) mmol/L Chloride 103 (100-108) mmol/L Carbon Dioxide 26 (21-32) mmol/L Anion Gap 12.5 (5.0-14.0) mmol/L BUN 8 (7-18) mg/dL Creatinine 0.9 (0.6-1.0) mg/dL Est Cr Clr Drug Dosing 85.65 mL/min Estimated GFR (MDRD) > 60 (>60) Glucose 118 H (74-106) mg/dL Calcium 8.8 (8.5-10.1) mg/dL Total Bilirubin 0.3 (0.2-1.0) mg/dL AST 98 H (15-37) U/L ALT 260 H (12-78) U/L Alkaline Phosphatase 234 H (46-116) U/L C-Reactive Protein 0.19 (0.0-0.3) mg/dL Total Protein 7.2 (6.4-8.2) g/dL Albumin 3.1 L (3.4-5.0) g/dL Globulin 4.1 H (2.3-3.5) g/dL Albumin/Globulin Ratio 0.8 L (1.2-2.2) Meds: Medications Discontinued Medications Generic Name Dose Route Start Last Admin Trade Name Freq PRN Reason Stop Dose Admin Dicyclomine HCl 20 mg 11/20/17 15:36 11/20/17 16:14 Bentyl PO 11/20/17 15:37 20 mg ONETIME ONE Administration Departure - Departure Time of Disposition: 17:10 Disposition: Home, Self-Care 01 Condition: Fair Clinical Impression: Elevated LFTs Abdominal pain Qualifiers: Abdominal location: upper abdomen, unspecified Qualified Code(s): R10.10 - Upper abdominal pain, unspecified - Discharge Information Prescriptions: Acetaminophen/HYDROcodone [[place] 325-5 MG] 1 - 2 tab PO Q6H PRN #20 tab PRN Reason: Pain Referrals: Jennifer Dunham CNM [Primary Care Provider] - Forms: ED Department Discharge, ED Return to Work/School Form Additional Instructions: Continue your medrol dose pack if possible. Take [place] as needed for pain relief. Keep your appt with Dr. Donato for Monday. Return here if needed. Make sure you keep your daily acetaminophen below 4000 mg to protect your liver. Increase your anxiety med dose if needed to offset the side effects of the medrol. - My Orders Last 24 Hours: My Active Orders 11/20/17 15:35 Orthostatic Vital Signs [RC] ASDIRECTED - Assessment/Plan Last 24 Hours: My Active Orders 11/20/17 15:35 Orthostatic Vital Signs [RC] ASDIRECTED
[2017-11-20 16:17] VITALS: BP 144/86
== END 2017-11-20 17:19 | disposition home or self-care (01) ==
LOC: JP.ED 14:53
DX: R10.10 Upper abdominal pain, unspecified (principal)
CPT/HCPCS: 36415; 80053; 85027; 86140; 99284; A9270

== ENCOUNTER 2017-12-28 08:48 | Day surgery (SDC) | payer MEDICAID ==
[2017-12-28] MEDS ORDERED: Cyanocobalamin (Vitamin B12) 1,000 MCG/ML SDV IM ONE (09:15)
[2017-12-28] MEDS ORDERED: Lactated Ringers 1,000 ML IV ONE (09:15)
[2017-12-28] MEDS ORDERED: Glycopyrrolate 0.2 MG/ML 2 ML SDV IVPUSH ONE (09:45)
[2017-12-28] MEDS ORDERED: MVI, Adult with Vitamin K 10 ML, Thiamine 200 MG, Chromium/Copper/Mang/Selen/Zn 1 ML in... IV ONE ×4 (10:15)
[2017-12-28] MEDS ORDERED: Midazolam 1 MG/ML 2 ML SDV ONE (11:29)
[2017-12-28] MEDS ORDERED: fentaNYL 100 MCG/2 ML SDV ONE (11:29)
[2017-12-28] MEDS ORDERED: Propofol 200 MG/20 ML SDV ONE (11:29)
[2017-12-28 13:16] VITALS: BP 142/84
--- NOTE | 2018-01-08 13:22 | OR ---
DATE OF PROCEDURE: 12/28/2017 PREOPERATIVE DIAGNOSIS: Epigastric discomfort, worsened by oral intake. POSTOPERATIVE DIAGNOSIS: Moderate diffuse gastritis. OPERATIVE PROCEDURE: Upper GI endoscopy with biopsies of antrum for CLOtest. ANESTHESIA: IV sedation. INDICATIONS FOR PROCEDURE: A 32-year-old status post duodenal switch procedure, presenting with some ongoing epigastric discomfort. This is exacerbated by eating. She presently is on proton pump inhibitors. The plan is to proceed with an upper GI endoscopy with biopsies and/or dilation as indicated. Potential risks including bleeding and perforation were discussed, and the patient wishes to proceed. DETAILS OF PROCEDURE: The patient was taken to the operating room and placed in a left lateral decubitus position. IV sedation was administered, and the upper GI endoscope was passed orally through the length of the esophagus into the stomach, through the sleeve gastrectomy portion of the duodenal switch and through the duodenal ileostomy, and from there roughly 20 cm into the small bowel distally and a few centimeters proximally. The hypopharynx, larynx, upper esophageal sphincter, and esophageal body were unremarkable. The EG junction likewise was unremarkable. There was a small amount of bile present within the stomach. There was more or less diffuse gastritis that was being more prominent in the distal half of the stomach. There were no erosions or ulcers seen. The pyloric sphincter and duodenal ileostomy were widely opened and no pathology was evident within the small bowel exam. At this point, biopsies were obtained from the antrum and sent for CLOtest for H. pylori. Minimal bleeding from the biopsy sites was seen, and the procedure was then concluded. The plan will be to start the patient on Carafate 500 mg daily, liquid form will be preferred, and we will see the patient back in 1 week for recheck. Of note, her potassium is somewhat low at 3.2 on today's exam and we will start 20 mEq of KCl orally as well. Neftaly Donato MD /[id number]
== END 2017-12-28 13:22 | disposition home or self-care (01) ==
LOC: JP.SDS 08:48
PROVIDERS: ATTEND Surgery
DX: R10.13 Epigastric pain (principal); K29.70 Gastritis, unspecified, without bleeding; I10 Essential (primary) hypertension; F41.9 Anxiety disorder, unspecified; F17.200 Nicotine dependence, unspecified, uncomplicated; Z79.899 Other long term (current) drug therapy; Z91.048 Other nonmedicinal substance allergy status
CPT/HCPCS: 36415; 43239; 80053; 81025; 83735; 84100; 85027; 87081; J2250; J2704; J3010; J3411; J3420; J3490; J7120

== ENCOUNTER 2018-05-17 19:06 | Emergency (ER) | payer SELFPAY ==
[2018-05-17 19:46] VITALS: BP 165/73
[2018-05-17] MEDS ORDERED: Lidocaine 1% with EPINEPHrine 1:100,000 50 ML MDV INFILT ONE (19:54)
[2018-05-17] MEDS ORDERED: Bacitracin Oint 1 GM U/D Packet TOP ONE (19:56)
[2018-05-17] MEDS ORDERED: Diphtheria,Pertussis(Acell),Tetanus Vaccine 0.5 ML SDV IM ONE (20:13)
--- NOTE | 2018-05-17 20:17 | EDM.PDOC ---
ED HPI GENERAL MEDICAL PROBLEM - General Chief Complaint: Laceration Stated Complaint: CUT FINGER AT WORK Time Seen by Provider: 05/17/18 19:50 Source of Information: Reports: Patient History Limitations: Reports: No Limitations - History of Present Illness INITIAL COMMENTS - FREE TEXT/NARRATIVE: 33-year-old female with a laceration to her left middle finger. She cut the top of the MP joint with a sharp scissors while working. This happened 2 hours ago. She is not current for her tetanus vaccination. Distal CMS is intact but the wound keeps bleeding and is open. Onset: Sudden Duration: Hour(s): (2 hours ago) Location: Reports: Upper Extremity, Left Left Finger-Middle Pain Score (Numeric/FACES): 6 - Related Data Allergies Allergy/AdvReac Type Severity Reaction Status Date / Time iron [From Venofer] Allergy Hives Verified 05/17/18 20:06 seasonal Allergy Cannot Uncoded 05/17/18 20:06 Remember Home Meds: Home Meds Cyanocobalamin (Vitamin B-12) [Vitamin B-12] 1,000 mcg SL DAILY #100 tab.subl [Rx] Calcium Citrate/Vitamin D3 [Calcium Citrate + D] 400 - 500 mg PO BID 11/24/15 [ History] LORazepam 0.5 mg PO BID PRN 11/24/15 [History] Omeprazole 40 mg PO DAILY 11/24/15 [History] Thiamine [Vitamin B-1] 100 mg PO DAILY 03/17/16 [History] Folic Acid 2 mg PO DAILY 04/24/17 [History] Zinc 50 mg PO DAILY 04/24/17 [History] Levothyroxine Sodium [Synthroid] 150 mcg PO DAILY 05/20/17 [History] Etonogestrel [Nexplanon] 68 mg SQ ASDIRECTED 07/27/17 [History] Lisinopril 10 mg PO DAILY 07/27/17 [History] PARoxetine [Paxil] 20 mg PO DAILY 07/27/17 [History] Celecoxib [CeleBREX] 200 mg PO DAILY 10/01/17 [History] Acetaminophen/HYDROcodone [[employer] 325-5 MG] 1 - 2 tab PO Q4H PRN 12/27/17 [ History] Amylase/Lipase/Protease [Noe SPENCER 24,000 Unit] 1 cap PO TIDMEALS 12/27/17 [ History] Cholecalciferol (Vitamin D3) [Decara] 50,000 unit PO .MWF 12/27/17 [History] Cyclobenzaprine [Flexeril] 10 mg PO Q6H PRN 12/27/17 [History] Iron,Carbonyl/Ascorbic Acid [Vitron-C Tablet] 1 tab PO DAILY 12/27/17 [History] Mag Carb/Al Hydrox/Alginic Ac [Gaviscon Extra Strength Liquid] 2 tab PO QIDPCANDBED 12/27/17 [History] Vitamin A 10,000 unit PO DAILY 12/27/17 [History] Past Medical History HEENT History: Reports: Allergic Rhinitis, Impaired Vision Other HEENT History: wears glasses Cardiovascular History: Reports: Hypertension Respiratory History: Reports: None Gastrointestinal History: Reports: GERD, Hemorrhoids Genitourinary History: Reports: None 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: , 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 Musculoskeletal History: Reports: Fracture Neurological History: Reports: Concussion, Head Trauma Psychiatric History: Reports: Anxiety, Depression, PTSD Endocrine/Metabolic History: Reports: Diabetes, Gestational, Hypothyroidism, Vitamin D Deficiency Hematologic History: Reports: B12 Deficiency, Iron Deficiency Immunologic History: Reports: None Oncologic (Cancer) History: Reports: None Dermatologic History: Reports: Other (See Below) Other Dermatologic History: panniculectomy - Infectious Disease History Infectious Disease History: Reports: Chicken Pox - Past Surgical History HEENT Surgical History: Reports: None Cardiovascular Surgical History: Reports: None GI Surgical History: Reports: Bariatric Procedure, Cholecystectomy, EGD, Hernia , Abdominal, Hernia Repair/Other, Other (See Below) Other GI Surgeries/Procedures: hemorrhoidectomy. panniculectomy Female Surgical History: Reports: Section, D&C Endocrine Surgical History: Reports: Thyroidectomy Neurological Surgical History: Reports: None Musculoskeletal Surgical History: Reports: None Dermatological Surgical History: Reports: None Social & Family History - Family History Family Medical History: Noncontributory HEENT: Reports: Hearing Impairment, Impaired Vision, Otitis Media, Sinusitis Cardiac: Reports: Bypass, CAD, [place] Respiratory: Reports: None GI: Reports: None : Reports: None OBGYN: Reports: None Musculoskeletal: Reports: None Neurological: Reports: Alzheimers Disease, Dementia Psychiatric: Reports: Depression Endocrine/Metabolic: Reports: Diabetes, type II Hematologic: Reports: None Immunologic: Reports: None Dermatologic: Reports: None Oncologic: Reports: None - Tobacco Use Smoking Status *Q: Current Every Day Smoker Years of Tobacco use: 15 Packs/Tins Daily: 0.3 - Caffeine Use Caffeine Use: Reports: None ED ROS GENERAL - Review of Systems Review Of Systems: See Below Constitutional: Denies: Fever Respiratory: Reports: No Symptoms GI/Abdominal: Denies: Nausea, Vomiting Neurological: Reports: No Symptoms ED EXAM, SKIN/RASH Exam: See Below Exam Limited By: No Limitations General Appearance: Alert, No Apparent Distress Respiratory/Chest: No Respiratory Distress Extremities: Other (Exam is otherwise limited to the left hand. The patient has a 1.5 cm longitudinal laceration across the PIP joint of the left middle finger on the dorsal aspect.) Course - Vital Signs Last Recorded V/S: Last Vital Signs Temp 98.9 F 05/17/18 20:05 Pulse 88 05/17/18 20:05 Resp 16 05/17/18 20:05 BP 165/73 H 05/17/18 20:05 Pulse Ox 100 05/17/18 20:05 - Orders/Labs/Meds Orders: Active Orders 24 hr Category Date Time Status Vaccines to be Administered [RC] PER UNIT ROUTINE Care 05/17/18 20:13 Active Meds: Medications Discontinued Medications Generic Name Dose Route Start Last Admin Trade Name Jean Marieq PRN Reason Stop Dose Admin Bacitracin 1 dose 05/17/18 19:56 05/17/18 20:13 Bacitracin Oint 1 Gm TOP 05/17/18 19:57 1 dose ONETIME ONE Administration Diphtheria/Tetanus/Acell Pertussis 0.5 ml 05/17/18 20:13 05/17/18 20:18 Adacel IM 05/17/18 20:14 0.5 ml .ONCE ONE Administration Lidocaine/Epinephrine 30 ml 05/17/18 19:54 05/17/18 20:12 Xylocaine 1% With Epinephrine 1:100,000 INFILT 05/17/18 19:55 3 ml ONETIME ONE Administration - Re-Assessments/Exams Free Text/Narrative Re-Assessment/Exam: 05/17/18 20:15 The wound was anesthetized with 1% lidocaine with epinephrine, cleansed thoroughly with saline, and 4 6-0 Ethilon sutures were used to close the wound. Topical bacitracin was applied, she was given a DPT vaccine booster, and she can remove the stitches in 7 days. She will keep the wound covered and clean while healing. Departure - Departure Time of Disposition: 20:24 Disposition: Home, Self-Care 01 Condition: Good Clinical Impression: Laceration of left middle finger Qualifiers: Encounter type: initial encounter Damage to nail status: without damage Foreign body presence: without foreign body Qualified Code(s): S61.213A - Laceration without foreign body of left middle finger without damage to nail, initial encounter - Discharge Information Instructions: VIS, Diphtheria, Tetanus, and Pertussis (DTaP) - CDC (09/21/2006) , Laceration Care, Adult, [id number] Referrals: Jennifer Dunham CNM [Primary Care Provider] - Forms: ED Department Discharge Care Plan Goals: Keep wound covered and clean while healing, sutures can be removed in 7 days. Return sooner if concerns of infection or not healing satisfactorily. - My Orders Last 24 Hours: My Active Orders 05/17/18 20:13 Vaccines to be Administered [RC] PER UNIT ROUTINE - Assessment/Plan Last 24 Hours: My Active Orders 05/17/18 20:13 Vaccines to be Administered [RC] PER UNIT ROUTINE
== END 2018-05-17 20:24 | disposition home or self-care (01) ==
LOC: JP.ED 19:06
DX: S61.213A Laceration without foreign body of left middle finger without damage to nail, initial encounter (principal); I10 Essential (primary) hypertension; F41.9 Anxiety disorder, unspecified; F32.9 Major depressive disorder, single episode, unspecified; K21.9 Gastro-esophageal reflux disease without esophagitis; E03.9 Hypothyroidism, unspecified; F17.210 Nicotine dependence, cigarettes, uncomplicated; Z23 Encounter for immunization; Z91.09 Other allergy status, other than to drugs and biological substances; Z79.899 Other long term (current) drug therapy; W26.9XXA Contact with unspecified sharp object(s), initial encounter; Y99.0 Civilian activity done for income or pay
CPT/HCPCS: 12001; 90471; 90715; 99283-25

== ENCOUNTER 2018-09-03 16:15 | Emergency (ER) | payer MEDICAID ==
[2018-09-03 16:39] VITALS: BP 145/98
--- NOTE | 2018-09-03 16:47 | EDM.PDOC ---
<Koko Godoy - Last Filed: 09/03/18 17:32> ED HPI GENERAL MEDICAL PROBLEM - General Chief Complaint: Abdominal Pain Stated Complaint: ABD PAIN Time Seen by Provider: 09/03/18 16:47 Source of Information: Reports: Patient History Limitations: Reports: No Limitations - History of Present Illness INITIAL COMMENTS - FREE TEXT/NARRATIVE: 33-year-old female had a cold and cough and last week while coughing she felt a pull in her left anterior abdomen. Since that time she has had persistent left abdominal pain, which seems to be worsening. No fevers or chills, no urinary symptoms, no abdominal distention and bowels are regular. Today was so painful at work that they sent her in to be evaluated. Onset: Sudden Duration: Day(s): (7 days ago while coughing) Location: Reports: Abdomen Associated Symptoms: Reports: No Other Symptoms. Denies: Fever/Chills, Loss of Appetite, Malaise, Nausea/Vomiting, Shortness of Breath Abdomen Pain Score (Numeric/FACES): 8 - Related Data Allergies Allergy/AdvReac Type Severity Reaction Status Date / Time iron [From Venofer] Allergy Hives Verified 09/03/18 16:32 seasonal Allergy Cannot Uncoded 09/03/18 16:32 Remember Home Meds: Home Meds Cyanocobalamin (Vitamin B-12) [Vitamin B-12] 1,000 mcg SL DAILY #100 tab.subl [Rx] Calcium Citrate/Vitamin D3 [Calcium Citrate + D] 400 - 500 mg PO BID 11/24/15 [ History] LORazepam 0.5 mg PO BID PRN 11/24/15 [History] Thiamine [Vitamin B-1] 100 mg PO DAILY 03/17/16 [History] Folic Acid 2 mg PO DAILY 04/24/17 [History] Zinc 50 mg PO DAILY 04/24/17 [History] Levothyroxine Sodium [Synthroid] 150 mcg PO DAILY 05/20/17 [History] Etonogestrel [Nexplanon] 68 mg SQ ASDIRECTED 07/27/17 [History] Lisinopril 10 mg PO DAILY 07/27/17 [History] Acetaminophen/HYDROcodone [[place] 325-5 MG] 1 - 2 tab PO Q4H PRN 12/27/17 [ History] Amylase/Lipase/Protease [[place] DR 24,000 Unit] 1 cap PO TIDMEALS 12/27/17 [ History] Cholecalciferol (Vitamin D3) [Decara] 50,000 unit PO .MWF 12/27/17 [History] Cyclobenzaprine [Flexeril] 10 mg PO Q6H PRN 12/27/17 [History] Iron,Carbonyl/Ascorbic Acid [Vitron-C Tablet] 1 tab PO DAILY 12/27/17 [History] Mag Carb/Al Hydrox/Alginic Ac [Gaviscon Extra Strength Liquid] 2 tab PO QIDPCANDBED 12/27/17 [History] Vitamin A 10,000 unit PO DAILY 12/27/17 [History] Past Medical History HEENT History: Reports: Allergic Rhinitis, Impaired Vision Other HEENT History: wears glasses Cardiovascular History: Reports: Hypertension Respiratory History: Reports: None Gastrointestinal History: Reports: GERD, Hemorrhoids Genitourinary History: Reports: None 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: , 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 Musculoskeletal History: Reports: Fracture Neurological History: Reports: Concussion, Head Trauma Psychiatric History: Reports: Anxiety, Depression, PTSD Endocrine/Metabolic History: Reports: Diabetes, Gestational, Hypothyroidism, Vitamin D Deficiency Hematologic History: Reports: B12 Deficiency, Iron Deficiency Immunologic History: Reports: None Oncologic (Cancer) History: Reports: None Dermatologic History: Reports: Other (See Below) Other Dermatologic History: panniculectomy - Infectious Disease History Infectious Disease History: Reports: Chicken Pox - Past Surgical History HEENT Surgical History: Reports: None GI Surgical History: Reports: Bariatric Procedure, Cholecystectomy, EGD, Hernia , Abdominal, Hernia Repair/Other, Other (See Below) Other GI Surgeries/Procedures: hemorrhoidectomy. panniculectomy Female Surgical History: Reports: Section, D&C Endocrine Surgical History: Reports: Thyroidectomy Social & Family History - Family History Family Medical History: Noncontributory HEENT: Reports: Hearing Impairment, Impaired Vision, Otitis Media, Sinusitis Cardiac: Reports: Bypass, CAD, [place] Respiratory: Reports: None GI: Reports: None : Reports: None OBGYN: Reports: None Musculoskeletal: Reports: None Neurological: Reports: Alzheimers Disease, Dementia Psychiatric: Reports: Depression Endocrine/Metabolic: Reports: Diabetes, type II Hematologic: Reports: None Immunologic: Reports: None Dermatologic: Reports: None Oncologic: Reports: None - Tobacco Use Smoking Status *Q: Current Every Day Smoker Years of Tobacco use: 15 Packs/Tins Daily: 0.3 - Caffeine Use Caffeine Use: Reports: Coffee - Recreational Drug Use Recreational Drug Use: No ED ROS GENERAL - Review of Systems Review Of Systems: See Below Constitutional: Denies: Fever, Chills, Malaise HEENT: Reports: No Symptoms Respiratory: Denies: Shortness of Breath Cardiovascular: Denies: Chest Pain GI/Abdominal: Reports: Abdominal Pain. Denies: Diarrhea, Nausea, Vomiting : Reports: No Symptoms Musculoskeletal: Reports: Back Pain (Chronic recurring) Skin: Reports: No Symptoms Psychiatric: Reports: Other (Stable bipolar history) ED EXAM, GI/ABD - Physical Exam Exam: See Below Exam Limited By: No Limitations General Appearance: Alert, No Apparent Distress (Looks uncomfortable but not distressed) Eyes: Bilateral: Normal Appearance Respiratory/Chest: No Respiratory Distress (No jaundice), Lungs Clear Cardiovascular: Regular Rate, Rhythm GI/Abdominal Exam: Normal Bowel Sounds, Tender (Reacts with tenderness to palpation across the left abdomen, especially lateral to the umbilicus and left upper quadrant) Extremities: No: Pedal Edema Psychiatric: Depressed Mood Skin Exam: Warm, Dry Course - Vital Signs Last Recorded V/S: Last Vital Signs Temp 96.1 F 09/03/18 16:36 Pulse 92 09/03/18 16:36 Resp 14 09/03/18 16:36 BP 145/98 H 09/03/18 16:36 Pulse Ox 99 09/03/18 16:36 - Orders/Labs/Meds Orders: Active Orders 24 hr Category Date Time Status Iopamidol [Isovue-300 (61%)] Med 09/03/18 18:00 Active 100 ml IV . DIRECTED Sodium Chloride 0.9% [Normal Saline] 1,000 ml Med 09/03/18 17:00 Active IV ASDIRECTED Medication Orders Sodium Chloride (Normal Saline) 1,000 mls @ 250 mls/hr IV ASDIRECTED SUMMER Last Admin: 09/03/18 16:59 Dose: 250 mls/hr Iopamidol (Isovue-300 (61%)) 100 ml IV . DIRECTED SUMMER Last Admin: 09/03/18 18:07 Dose: 100 ml Labs: Laboratory Tests 09/03/18 09/03/18 09/03/18 Range/Units 17:01 17:01 17:01 WBC 7.3 (4.5-11.0) K/uL RBC 4.64 (3.30-5.50) M/uL Hgb 10.0 L (12.0-15.0) g/dL Hct 34.1 L (36.0-48.0) % MCV 74 L (80-98) fL MCH 22 L (27-31) pg MCHC 29 L (32-36) % Plt Count 275 (150-400) K/uL Neut % (Auto) 62 (36-66) % Lymph % (Auto) 30 (24-44) % [place] % (Auto) 6 (2-6) % Eos % (Auto) 2 (2-4) % Baso % (Auto) 0 (0-1) % Sodium 140 (140-148) mmol/L Potassium 3.7 (3.6-5.2) mmol/L Chloride 103 (100-108) mmol/L Carbon Dioxide 27 (21-32) mmol/L Anion Gap 10.4 (5.0-14.0) mmol/L BUN 10 D (7-18) mg/dL Creatinine 0.8 (0.6-1.0) mg/dL Est Cr Clr Drug Dosing 99.01 mL/min Estimated GFR (MDRD) > 60 (>60) Glucose 83 (74-106) mg/dL Lactic Acid 1.1 (0.4-2.0) mmol/L Calcium 8.7 (8.5-10.1) mg/dL Total Bilirubin 0.1 L D (0.2-1.0) mg/dL AST 106 H (15-37) U/L ALT 152 H (12-78) U/L Alkaline Phosphatase 248 H (46-116) U/L Total Protein 8.0 (6.4-8.2) g/dL Albumin 3.5 (3.4-5.0) g/dL Globulin 4.5 H (2.3-3.5) g/dL Albumin/Globulin Ratio 0.8 L (1.2-2.2) Meds: Medications Generic Name Dose Route Start Last Admin Trade Name Freq PRN Reason Stop Dose Admin Sodium Chloride 1,000 mls @ 250 mls/hr 09/03/18 17:00 09/03/18 16:59 Normal Saline IV 250 mls/hr ASDIRECTED SUMMER Administration Iopamidol 100 ml 09/03/18 18:00 09/03/18 18:07 Isovue-300 (61%) IV 100 ml . DIRECTED SUMMER Administration Discontinued Medications Generic Name Dose Route Start Last Admin Trade Name Tri PRN Reason Stop Dose Admin Sodium Chloride 100 mls @ 3 mls/sec 09/03/18 17:47 09/03/18 18:08 Normal Saline IV 09/03/18 17:48 3 mls/sec ONETIME ONE Administration Ketorolac Tromethamine 30 mg 09/03/18 18:36 09/03/18 18:39 Toradol IVPUSH 09/03/18 18:37 30 mg ONETIME ONE Administration Sodium Chloride 10 ml 09/03/18 17:47 09/03/18 18:07 Saline Flush FLUSH 09/03/18 17:48 10 ml ONETIME ONE Administration - Re-Assessments/Exams Free Text/Narrative Re-Assessment/Exam: 09/03/18 16:54 An IV was started and the patient was given 250 mL in normal saline an hour, CBC and CMP with lactic acid were obtained. Departure - Departure Disposition: Home, Self-Care 01 Clinical Impression: Abdominal pain Qualifiers: Abdominal location: generalized Qualified Code(s): R10.84 - Generalized abdominal pain - Discharge Information Referrals: Jennifer Dunham CNM [Primary Care Provider] - Forms: ED Department Discharge Additional Instructions: Use Percocet as needed for pain control, please keep your follow-up appointment with Dr. Donato on Monday of this week <OfficerNash - Last Filed: 09/03/18 18:49> Departure - Departure Time of Disposition: 18:48 Condition: Fair - Assessment/Plan Plan: Assessment Acuity = acute Site and laterality = [abdominal pain complicated patient with known history of bariatric procedure Etiology = unclear etiology] Manifestations = none Location of injury = Home Lab values = CBC reveals a hemoglobin at 10.0 consistent with a microchromic anemia AST elevated 106 ALTs elevated 152 consistent elevated liver enzymes, CT scan shows large amount of stool in the colon otherwise no acute process Plan Called discussed case with Dr. Donato at 1830 recommended pain medication therefore prescription written for Percocet 5/325 one tab by mouth 3 times a day when necessary total #10 she does have follow-up appointment with him on Monday of this week This note was dictated using [employer] voice recognition software please call with any questions on syntax or grammar.
[2018-09-03] MEDS ORDERED: Sodium Chloride 0.9% 1,000 ML IV SCH (17:00)
[2018-09-03] MEDS ORDERED: Sodium Chloride 0.9% 100 ML IV ONE (17:47)
[2018-09-03] MEDS ORDERED: Sodium Chloride 0.9% 10 ML Syringe FLUSH ONE (17:47)
[2018-09-03] MEDS ORDERED: Iopamidol 612 MG/ML 100 ML Bottle IV SCH (18:00)
--- NOTE | 2018-09-03 18:27 | CRLCT ---
Indication: Abdominal pain. Technique: Multiple contiguous axial images were obtained from the lung bases through the symphysis pubis after the intravenous administration of 100 cc Isovue-300. Please note that all CT scans at this facility use dose modulation, iterative reconstruction, and/or weight-based dosing when appropriate to reduce radiation dose to as low as reasonably achievable. Comparison: November 19, 2017. Findings: The lung bases are clear. No infiltrate, pleural effusion, or pneumothorax is identified. The heart is normal in size. No pericardial effusion is identified. The liver, spleen, pancreas, adrenals, and kidneys are normal. No intrahepatic biliary ductal dilatation is identified. No hydronephrosis is seen. Postoperative changes of a cholecystectomy are identified. In the pelvis, the urinary bladder is normal. The uterus is grossly normal. A physiologic amount of free fluid is identified within the pelvis. A large amount of stool is identified within the colon, particularly within the ascending and transverse colon. Postsurgical changes of a gastric bypass are identified. Postsurgical changes of a hernia repair are identified. No free air is identified within the abdomen or pelvis. The aorta is normal in caliber. No lytic or blastic lesions of the spine are seen. Impression: Postoperative changes of a cholecystectomy, anterior abdominal wall hernia repair, and gastric bypass, stable. Large amount of stool identified within the colon, particularly within the ascending and transverse colon. Physiologic amount of free fluid identified within the pelvis. Please note that all CT scans at this facility use dose modulation, iterative reconstruction, and/or weight-based dosing when appropriate to reduce radiation dose to as low as reasonably achievable. Dictated by Sharonda Santos MD @ Sep 03 2018 6:22PM Signed by Dr. Sharonda Santos @ Sep 03 2018 6:25PM
[2018-09-03] MEDS ORDERED: Ketorolac 30 MG/ML SDV IVPUSH ONE (18:36)
== END 2018-09-03 19:00 | disposition home or self-care (01) ==
LOC: JP.ED 16:15 → EEVIPCON 16:15 → JP.ED 19:00
DX: R10.84 Generalized abdominal pain (principal); Z98.84 Bariatric surgery status; F17.210 Nicotine dependence, cigarettes, uncomplicated; I10 Essential (primary) hypertension; K21.9 Gastro-esophageal reflux disease without esophagitis; F41.9 Anxiety disorder, unspecified; F32.9 Major depressive disorder, single episode, unspecified; E03.9 Hypothyroidism, unspecified; Z79.899 Other long term (current) drug therapy; Z91.09 Other allergy status, other than to drugs and biological substances
CPT/HCPCS: 36415; 74177; 80053; 83605; 85025; 96361; 96374; 99284; J1885; J7030; Q9967

== ENCOUNTER 2021-03-23 15:04 | Emergency (ER) | payer MEDICAID ==
--- NOTE | 2021-03-23 16:13 | EDM.PDOC ---
ED HPI GENERAL MEDICAL PROBLEM - General Chief Complaint: General Stated Complaint: CALCIUM IS LOW Time Seen by Provider: 03/23/21 15:55 Source of Information: Reports: Patient, Old Records History Limitations: Reports: No Limitations - History of Present Illness INITIAL COMMENTS - FREE TEXT/NARRATIVE: 35 yo black female s/p thyroidectomy ( and likely incidental parathyroidectomy. Since then she has been on supplemental calcium and vit D to prevent hypocalcemia. She admits she has missed doses. She says she has some added muscle soreness lately, but otherwise feels her baseline. No cramping or GI sx's. 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) - Related Data Allergies Allergy/AdvReac Type Severity Reaction Status Date / Time iron [From Venofer] Allergy Hives Verified 03/23/21 15:23 seasonal Allergy Cannot Uncoded 03/23/21 15:23 Remember Home Meds: Home Meds Cyanocobalamin (Vitamin B-12) [Vitamin B-12] 1,000 mcg SL DAILY #100 tab.subl 06/23/15 [Rx] Calcium Citrate/Vitamin D3 [Calcium Citrate + D] 400 - 500 mg PO BID 11/24/15 [History] LORazepam 0.5 mg PO BID PRN 11/24/15 [History] Thiamine [Vitamin B-1] 100 mg PO DAILY 03/17/16 [History] Folic Acid 2 mg PO DAILY 04/24/17 [History] Zinc 50 mg PO DAILY 04/24/17 [History] Levothyroxine Sodium [Synthroid] 150 mcg PO DAILY 05/20/17 [History] Etonogestrel [Nexplanon] 68 mg SQ ASDIRECTED 07/27/17 [History] Lisinopril 10 mg PO DAILY 07/27/17 [History] Amylase/Lipase/Protease [[place] 24,000 Unit] 1 cap PO TIDMEALS 12/27/17 [History] Cholecalciferol (Vitamin D3) [Decara] 50,000 unit PO .MWF 12/27/17 [History] Iron,Carbonyl/Ascorbic Acid [Vitron-C Tablet] 1 tab PO DAILY 12/27/17 [History] Mag Carb/Aluminum Hydrox/Algin [Gaviscon Extra Strength Liquid] 2 tab PO QIDPCANDBED 12/27/17 [History] Vitamin A 10,000 unit PO DAILY 12/27/17 [History] Past Medical History HEENT History: Reports: Allergic Rhinitis, Impaired Vision Other HEENT History: wears glasses Cardiovascular History: Reports: Hypertension Respiratory History: Reports: None Gastrointestinal History: Reports: GERD, Hemorrhoids Genitourinary History: Reports: None 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: , 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 Musculoskeletal History: Reports: Fracture Neurological History: Reports: Concussion, Head Trauma Psychiatric History: Reports: Anxiety, Depression, PTSD Endocrine/Metabolic History: Reports: Diabetes, Gestational, Hypothyroidism, Vitamin D Deficiency Hematologic History: Reports: B12 Deficiency, Iron Deficiency Immunologic History: Reports: None Oncologic (Cancer) History: Reports: None Dermatologic History: Reports: Other (See Below) Other Dermatologic History: panniculectomy - Infectious Disease History Infectious Disease History: Reports: Chicken Pox - Past Surgical History Head Surgeries/Procedures: Reports: None HEENT Surgical History: Reports: None Other HEENT Surgeries/Procedures: wears glasses Cardiovascular Surgical History: Reports: None Respiratory Surgical History: Reports: None GI Surgical History: Reports: Bariatric Procedure, Cholecystectomy, EGD, Hernia, Abdominal, Hernia Repair/Other, Other (See Below) Other GI Surgeries/Procedures: hemorrhoidectomy. panniculectomy Female Surgical History: Reports: Section, D&C Endocrine Surgical History: Reports: Thyroidectomy Neurological Surgical History: Reports: None Musculoskeletal Surgical History: Reports: None Dermatological Surgical History: Reports: None Social & Family History - Family History Family Medical History: No Pertinent Family History HEENT: Reports: Hearing Impairment, Impaired Vision, Otitis Media, Sinusitis Cardiac: Reports: Bypass, CAD, [place] Respiratory: Reports: None GI: Reports: None : Reports: None OBGYN: Reports: None Musculoskeletal: Reports: None Neurological: Reports: Alzheimers Disease, Dementia Psychiatric: Reports: Depression Endocrine/Metabolic: Reports: Diabetes, type II Hematologic: Reports: None Immunologic: Reports: None Dermatologic: Reports: None Oncologic: Reports: None - Tobacco Use Tobacco Use Status *Q: Heavy Tobacco User Years of Tobacco use: 20 Packs/Tins Daily: 0.5 - Caffeine Use Caffeine Use: Reports: Coffee - Recreational Drug Use Recreational Drug Use: No ED ROS GENERAL - Review of Systems Review Of Systems: See Below Constitutional: Reports: No Symptoms HEENT: Reports: No Symptoms Respiratory: Reports: No Symptoms Cardiovascular: Reports: No Symptoms Endocrine: Reports: No Symptoms GI/Abdominal: Reports: No Symptoms : Reports: No Symptoms Musculoskeletal: Reports: Other (diffuse muscle mild soreness) Skin: Reports: No Symptoms Neurological: Reports: No Symptoms Psychiatric: Reports: No Symptoms ED EXAM, GENERAL - Physical Exam Exam: See Below Exam Limited By: No Limitations General Appearance: Alert, WD/WN, No Apparent Distress Eye Exam: Bilateral Eye: Normal Inspection Ears: Normal External Exam, Normal Canal, Hearing Grossly Normal, Normal TMs Ear Exam: Bilateral Ear: Auricle Normal, Canal Normal Nose: Normal Inspection, No Blood Throat/Mouth: Normal Inspection, Normal Lips, Normal Oropharynx, Normal Voice, No Airway Compromise Head: Atraumatic, Normocephalic Neck: Normal Inspection Respiratory/Chest: No Respiratory Distress, Lungs Clear, Normal Breath Sounds, No Accessory Muscle Use Cardiovascular: Regular Rate, Rhythm, No Edema GI/Abdominal: Normal Bowel Sounds, Soft, Non-Tender, No Distention Back Exam: Normal Inspection. No: CVA Tenderness (R), CVA Tenderness (L) Extremities: Normal Inspection, Normal Range of Motion, Non-Tender, No Pedal Edema Neurological: Alert, Oriented, CN II-XII Intact, Normal Cognition, No Motor/Sensory Deficits Psychiatric: Normal Affect, Normal Mood Skin Exam: Warm, Dry, Intact, Normal Color, No Rash Course - Vital Signs Last Recorded V/S: Last Vital Signs Temp 36.6 C 03/23/21 15:27 Pulse 90 03/23/21 15:27 Resp 16 03/23/21 15:27 BP 112/84 03/23/21 15:27 Pulse Ox 100 03/23/21 15:27 - Orders/Labs/Meds Orders: Active Orders 24 hr Category Date Time Status Calcium Gluconate 2 gm Med 03/23/21 16:22 Active Sodium Chloride 0.9% [Normal Saline] 100 ml IV ONETIME Medication Orders Calcium Gluconate 2 gm/ Sodium (Chloride) 120 mls @ 100 mls/hr IV ONETIME ONE Stop: 03/23/21 17:33 Labs: Laboratory Tests 03/23/21 Range/Units 16:10 Sodium 140 (140-148) mmol/L Potassium 3.5 L (3.6-5.2) mmol/L Chloride 108 (100-108) mmol/L Carbon Dioxide 22 (21-32) mmol/L Anion Gap 13.5 (5.0-14.0) mmol/L BUN 10 (7-18) mg/dL Creatinine 0.7 (0.6-1.0) mg/dL Est Cr Clr Drug Dosing 103.01 mL/min Estimated GFR (MDRD) > 60 (>60) Glucose 98 (74-106) mg/dL Calcium 6.6 L* D (8.5-10.1) mg/dL Total Bilirubin 0.2 D (0.2-1.0) mg/dL AST 69 H (15-37) U/L ALT 92 H (12-78) U/L Alkaline Phosphatase 452 H D (46-116) U/L Total Protein 7.2 (6.4-8.2) g/dL Albumin 3.1 L (3.4-5.0) g/dL Globulin 4.1 H (2.3-3.5) g/dL Albumin/Globulin Ratio 0.8 L (1.2-2.2) Meds: Medications Generic Name Dose Route Start Last Admin Trade Name Freq PRN Reason Stop Dose Admin Calcium Gluconate 2 gm/ Sodium 120 mls @ 100 mls/hr 03/23/21 16:22 Chloride IV 03/23/21 17:33 ONETIME ONE Departure - Departure Time of Disposition: 17:30 Disposition: Home, Self-Care 01 Condition: Good Clinical Impression: Hypocalcemia - Discharge Information *PRESCRIPTION DRUG MONITORING PROGRAM REVIEWED*: Not Applicable *COPY OF PRESCRIPTION DRUG MONITORING REPORT IN PATIENT AV: Not Applicable Instructions: Hypocalcemia, Adult Referrals: Jennifer Dunham CNM [Primary Care Provider] - Forms: ED Department Discharge Additional Instructions: Make sure not to miss any doses on your calcium and vitamin D. Recheck with your provider in about a week for recheck on your calcium. Recheck sooner if you don't feel well. Sepsis Event Note (ED) - Evaluation Sepsis Screening Result: No Definite Risk - Focused Exam Vital Signs: Vital Signs Temp Pulse Resp BP Pulse Ox 03/23/21 15:27 36.6 C 90 16 112/84 100 03/23/21 15:24 36.6 C 90 16 112/84 100 - My Orders Last 24 Hours: My Active Orders 03/23/21 16:22 Calcium Gluconate 2 gm Sodium Chloride 0.9% [Normal Saline] 100 ml IV ONETIME - Assessment/Plan Last 24 Hours: My Active Orders 03/23/21 16:22 Calcium Gluconate 2 gm Sodium Chloride 0.9% [Normal Saline] 100 ml IV ONETIME
[2021-03-23] MEDS ORDERED: Calcium Gluconate 2 GM in Sodium Chloride 0.9% 100 ML IV ONE (16:22)
[2021-03-23 17:36] VITALS: BP 115/58; PULSE 79
== END 2021-03-23 18:49 | disposition home or self-care (01) ==
LOC: JP.ED 15:04
DX: E83.51 Hypocalcemia (principal); I10 Essential (primary) hypertension; E03.9 Hypothyroidism, unspecified; Z72.0 Tobacco use; Z88.8 Allergy status to other drugs, medicaments and biological substances; Z91.048 Other nonmedicinal substance allergy status; Z79.899 Other long term (current) drug therapy
CPT/HCPCS: 36415; 80053; 96365; 99283; J0610

== ENCOUNTER 2022-04-01 20:19 | Emergency (ER) | payer MEDICAID ==
[2022-04-01 21:05] VITALS: BP 126/78; PULSE 104
[2022-04-01 21:17] LABS: ESTIMATED GFR 83 mL/min (>60)
[2022-04-01] MEDS ORDERED: Lisinopril 10 MG Tab PO SCH (22:00)
[2022-04-01] MEDS ORDERED: Lisinopril 10 MG Tab ONE (22:21)
== END 2022-04-01 22:26 | disposition other institution (70) ==
LOC: JP.ED 20:19
DX: F19.10 Other psychoactive substance abuse, uncomplicated (principal); I10 Essential (primary) hypertension; K21.9 Gastro-esophageal reflux disease without esophagitis; E03.9 Hypothyroidism, unspecified; Z91.09 Other allergy status, other than to drugs and biological substances; Z79.899 Other long term (current) drug therapy; Z20.822 Contact with and (suspected) exposure to COVID-19
CPT/HCPCS: 36415; 80053; 80305-QW; 80307; 85025; 99284; U0002

== ENCOUNTER 2022-05-01 15:41 | Emergency (ER) | payer MEDICAID ==
[2022-05-01] MEDS ORDERED: cefTRIAXone 1 GM, Lidocaine 1% 2.1 ML IM ONE ×2 (16:25)
[2022-05-01 17:04] LABS: ESTIMATED GFR 113 mL/min (>60)
[2022-05-01] MEDS ORDERED: Sodium Chloride 0.9% 10 ML Syringe FLUSH PRN (17:09)
[2022-05-01] MEDS ORDERED: Ondansetron 4 MG/2 ML SDV IVPUSH ONE (18:58)
[2022-05-01] MEDS ORDERED: Acetaminophen 325 MG Tab PO STA (20:09)
[2022-05-01 20:15] VITALS: PULSE 99
[2022-05-01 22:12] VITALS: BP 141/86
== END 2022-05-01 23:11 | disposition other institution (70) ==
LOC: JP.ED 15:41
DX: F31.9 Bipolar disorder, unspecified (principal); H60.393 Other infective otitis externa, bilateral; D50.8 Other iron deficiency anemias; I10 Essential (primary) hypertension; F43.20 Adjustment disorder, unspecified; E11.9 Type 2 diabetes mellitus without complications; E03.9 Hypothyroidism, unspecified; F17.210 Nicotine dependence, cigarettes, uncomplicated; Z88.8 Allergy status to other drugs, medicaments and biological substances; Z79.899 Other long term (current) drug therapy
CPT/HCPCS: 36415; 36430; 80053; 80307; 83605; 84443; 84702; 85018; 85025; 86850; 86900; 86901; 86920; 86922; 96372; 96374; 99284-25; A9270-GY; J0696; J2405; J3490; P9016

== ENCOUNTER 2022-08-17 07:05 | Day surgery (SDC) | payer MEDICAID ==
[2022-08-17] MEDS ORDERED: Propofol 200 MG/20 ML SDV ONE (07:30)
[2022-08-17] MEDS ORDERED: Midazolam 1 MG/ML 2 ML SDV ONE (07:30)
[2022-08-17] MEDS ORDERED: MVI, Adult with Vitamin K 10 ML, Thiamine 200 MG, Zinc/Copper/Manganese/Selenium 1 ML i... IV SCH ×4 (07:45)
[2022-08-17] MEDS ORDERED: Lactated Ringers 1,000 ML IV SCH (08:00)
[2022-08-17] MEDS ORDERED: MVI, Adult with Vitamin K 10 ML, Thiamine 200 MG, Zinc/Copper/Manganese/Selenium 1 ML i... IV ONE ×4 (09:15)
[2022-08-17] MEDS ORDERED: Hydrocortisone Sodium Succinate 100 MG/2 ML SDV IV ONE (10:00)
[2022-08-17] MEDS ORDERED: Sodium Ferric Gluconate Cmplex 250 MG in Sodium Chloride 0.9% 100 ML IV ONE (10:15)
[2022-08-17 16:02] VITALS: BP 128/49; PULSE 89
[2022-08-18 14:13] LABS: HBSAG SCREEN Negative (Negative)
== END 2022-08-17 16:00 | disposition home or self-care (01) ==
LOC: JP.SDS 07:05
PROVIDERS: ATTEND Student in an Organized Health Care Education/Training Program
DX: K29.50 Unspecified chronic gastritis without bleeding (principal); K21.00 Gastro-esophageal reflux disease with esophagitis, without bleeding; K22.89 Other specified disease of esophagus; K52.9 Noninfective gastroenteritis and colitis, unspecified; E03.9 Hypothyroidism, unspecified; Z88.8 Allergy status to other drugs, medicaments and biological substances
CPT/HCPCS: 36415; 43239; 84703; 85027; 86704; 86706; 86709; 86803; 86850; 86900; 86901; 87340; 87449; 88305; 88312; 88342; 93005; 93010; J1720; J2250; J2704; J2916; J3411; J3490; J7120

== ENCOUNTER 2023-02-26 19:28 | Emergency (ER) | payer MEDICAID ==
[2023-02-26] MEDS ORDERED: Sodium Chloride 0.9% 10 ML Syringe FLUSH PRN (21:07)
[2023-02-26] MEDS ORDERED: LORazepam 2 MG/ML SDV IVPUSH ONE (21:09)
[2023-02-26] MEDS ORDERED: Lactated Ringers 1,000 ML IV SCH (21:15)
[2023-02-26 21:28] VITALS: BP 120/61; PULSE 58
[2023-02-26 21:29] LABS: BASOPHILS PERCENT AUTO 0.3 % (0.1-1.3); EOSINOPHILS ABSOLUTE AUTO 0.23 K/uL (0.00-0.40); HEMATOCRIT 31.2 % (34.3-46.0); HEMOGLOBIN 8.6 g/dL (11.2-15.5); IMMATURE GRAN PERCENT AUTO 0.2 % (0.0-0.7); LYMPHOCYTES PERCENT AUTO 29.5 % (11.4-47.7); MEAN CORPUSCULAR HEMOGLOBIN 18.6 pg (31.6-35.5); MEAN CORPUSCULAR HGB CONC 27.6 g/dL (31.6-35.5); MEAN CORPUSCULAR VOLUME 67.5 fL (81.4-99.0); MONOCYTES ABSOLUTE AUTO 0.49 K/uL (0.20-0.90); MONOCYTES PERCENT AUTO 8.5 % (3.3-12.6); NEUTROPHILS ABSOLUTE AUTO 3.32 K/uL (1.0-7.6); NEUTROPHILS PERCENT AUTO 57.5 % (40.0-78.1); PLATELET COUNT,PLT 357 K/uL (130-375); RED BLOOD CELL COUNT 4.62 M/uL (3.77-5.24); WHITE BLOOD CELL COUNT,WBC 5.8 K/uL (3.2-11.0)
[2023-02-26 21:32] LABS: BASOPHILS ABSOLUTE AUTO 0.02 K/uL (0.00-0.10); IMMATURE GRAN ABSOLUTE AUTO 0.01 K/uL (0.00-0.23)
[2023-02-26 21:50] LABS: A/G RATIO 0.8 (1.2-2.2); ALANINE AMINOTRANSFERASE,ALT 137 U/L (12-78); ALBUMIN 3.3 g/dL (3.4-5.0); ALKALINE PHOSPHATASE 223 U/L (46-116); ASPARTATE AMNIOTRANSFERASE,AST 124 U/L (15-37); BILIRUBIN TOTAL 0.3 mg/dL (0.2-1.0); BLOOD UREA NITROGEN,BUN 7 mg/dL (7-18); CALCIUM 8.1 mg/dL (8.5-10.1); CARBON DIOXIDE,CO2 25 mmol/L (21-32); CHLORIDE,CL 102 mmol/L (100-108); CREATININE 0.7 mg/dL (0.6-1.0); EST CRCL DRUG DOSING (CG) 104.93 mL/min; ESTIMATED GFR 113 mL/min (>60); GLUCOSE RANDOM 85 mg/dL (74-106); POTASSIUM,K 4.4 mmol/L (3.6-5.2); PROTEIN TOTAL,TP 7.6 g/dL (6.4-8.2); SODIUM,NA 136 mmol/L (140-148)
[2023-02-26 21:55] LABS: ANION GAP 13.4 mmol/L (5.0-14.0)
== END 2023-02-26 22:59 | disposition home or self-care (01) ==
LOC: JP.ED 19:28
DX: F13.930 Sedative, hypnotic or anxiolytic use, unspecified with withdrawal, uncomplicated (principal); R19.7 Diarrhea, unspecified; I10 Essential (primary) hypertension; Z79.899 Other long term (current) drug therapy; Z86.16 Personal history of COVID-19
CPT/HCPCS: 36415; 80053; 83605; 83690; 85025; 96361; 96374; 99284; J2060; J3490; J7120